=== PATIENT | female | born 1980 | race Caucasian/White ===

== ENCOUNTER 2021-01-26 08:09 | Outpatient (CLI) | payer OTHER, SELFPAY ==
[2021-01-26 08:31] LABS: Basophils Absolute Auto 0.1 K/mm3 (0.0-0.1); Basophils Percent Auto 0.5 % (0.2-1.2); Eosinophils Absolute Auto 0.1 K/mm3 (0-0.3); Eosinophils Percent Auto 1.3 % (0-4.4); Hematocrit 36.5 % (37.0-47.0); Hemoglobin 11.7 g/dL (12.0-15.0); Immature Granulocyte Absolute 0.04 K/mm3 (0.00-0.031); Immature Granulocyte Percent A 0.4 % (0-0.5); Lymphocytes Absolute Auto 2.78 K/mm3 (0.9-3.2); Lymphocytes Percent Auto 29.4 % (18.3-44.2); Mean Corpuscular HGB Conc 32.1 g/dl (32-36); Mean Corpuscular Hemoglobin 25.5 pg (26-34); Mean Corpuscular Volume 79.5 fl (80-100); Mean Platelet Volume 8.7 fl (7.4-10.4); Monocytes Absolute Auto 0.4 K/mm3 (0.1-0.6); Monocytes Percent Auto 3.7 % (2.6-8.5); Neutrophils Absolute Auto 6.1 K/mm3 (1.3-6.7); Neutrophils Percent Auto 64.7 % (45.5-73.1); Platelet Count Result 384 k/mm3 (150-375); Red Blood Count 4.59 M/mm3 (4.2-5.4); White Blood Count 9.5 K/mm3 (4.5-10.0)
[2021-01-26 08:45] LABS: Potassium 3.7 mmol/L (3.4-5.0)
[2021-01-26 08:47] LABS: Albumin Level 4.1 g/dL (3.5-5.1)
[2021-01-26 08:48] LABS: Alanine Aminotransferase 20 U/L (4-35); Alkaline Phosphatase 77 U/L (38-126); Anion Gap 8 mmol/L (8-16); Aspartate Amino Transferase 21 U/L (14-36); Bilirubin,Total 0.5 mg/dL (0.2-1.3); Blood Urea Nitrogen 11 mg/dL (7-17); Calcium 9.2 mg/dL (8.4-10.2); Carbon Dioxide 25 mmol/L (22-30); Chloride 106 mmol/L (98-107); Cholesterol 160 mg/dL (0-200); Estimated Glomerular Filt Rate > 60; Glucose 154 mg/dL (65-105); HDL Direct 28 mg/dL; Sodium 139 mmol/L (137-145); Triglycerides 180 mg/dL (<150)
[2021-01-26 08:57] LABS: LDL Cholesterol Direct 95 mg/dL
[2021-01-26 10:56] LABS: Vitamin D 25 Hydroxy 13.5 ng/mL
== END 2021-01-26 08:10 | disposition home or self-care (01) ==
PROVIDERS: PCP Family Medicine; Visit Provider Nurse Practitioner Family
DX: E78.2 Mixed hyperlipidemia (principal); E66.01 Morbid (severe) obesity due to excess calories; Z13.29 Encounter for screening for other suspected endocrine disorder; E55.9 Vitamin D deficiency, unspecified
CPT/HCPCS: 36415; 80053; 80061; 82306; 84443; 85025

== ENCOUNTER 2021-05-14 16:58 | Outpatient (CLI) | payer OTHER, SELFPAY ==
--- NOTE | ~2021-05-14 | XR_ITS ---
XR elbow LT min 3V DATE: 05/14/2021 17:22 INDICATION: Generalized left elbow pain for one month. No injury. TECHNIQUE: 5 views COMPARISON: 02/12/2015 left elbow FINDINGS: There is spurring of the coronoid process of the proximal ulna since 02/12/2015. No fracture or dislocation or joint effusion. No periosteal reaction or bone destruction. 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
== END 2021-05-14 16:59 | disposition home or self-care (01) ==
LOC: ANHIMG 17:02
PROVIDERS: PCP Family Medicine; Visit Provider Nurse Practitioner Family
DX: M25.522 Pain in left elbow (principal); R20.0 Anesthesia of skin; R20.2 Paresthesia of skin; M77.8 Other enthesopathies, not elsewhere classified
CPT/HCPCS: 73080

== ENCOUNTER 2021-06-28 10:11 | Outpatient (CLI) | payer OTHER, SELFPAY ==
[2021-06-28 11:38] LABS: Hemoglobin A1C 6.3 % (<5.7)
[2021-07-02 11:14] LABS: Testosterone Total 31 ng/dL (2-45)
[2021-07-03 07:06] LABS: FSH 4.6 mIU/mL (***); LH 3.7 mIU/mL (***); Progesterone 0.7 ng/mL (***)
== END 2021-06-28 10:12 | disposition home or self-care (01) ==
PROVIDERS: PCP Family Medicine; Visit Provider Obstetrics & Gynecology
DX: N94.6 Dysmenorrhea, unspecified (principal)
CPT/HCPCS: 36415; 83001; 83002; 83036; 84144; 84403; 84443

== ENCOUNTER 2021-07-05 14:54 | Outpatient (CLI) | payer OTHER, SELFPAY ==
--- NOTE | ~2021-07-05 | US_ITS ---
EXAMINATION: US pelvic complete w TV EXAM DATE: 07/05/2021 16:01 INDICATION: R10.2 - Pelvic and perineal pain. TECHNIQUE: Pelvic transabdominal and transvaginal sonogram was performed. There are multiple graysca le and Doppler images available for interpretation. Comparison is made to prior examination from 04/24. FINDINGS: Uterus measures 11.1 x 4.0 x 6.0 cm, and is morphologically normal. Endometrial stripe me asures 5-6 mm, within normal limits. There is a nabothian cyst. There is no free pelvic fluid. Right adnexa: The ovary measures 2.8 x 2.1 x 2.0 cm and is morphologically normal. Ovarian vascular f low confirmed. Left adnexa: The ovary measures 1.9 x 1.5 x 3.0 cm and is morphologically normal. Ovarian vascular fl ow confirmed. IMPRESSION: 1. Unremarkable pelvic ultrasound exam. Reviewed, dictated and finalized at location B.
== END 2021-07-05 14:55 | disposition home or self-care (01) ==
LOC: ANHIMG 14:56
PROVIDERS: PCP Family Medicine; Visit Provider Obstetrics & Gynecology
DX: R10.2 Pelvic and perineal pain (principal)
CPT/HCPCS: 76830; 76856

== ENCOUNTER 2021-07-23 09:59 | Outpatient (CLI) | payer OTHER, SELFPAY ==
--- NOTE | 2021-07-23 11:30 | NEURO_ITS ---
Impression: # Complains of numbness of left hand. # Mild early left Carpal Tunnel Syndrome. # No ulnar neuropathy. # Normal needle/EMG exam. Nerve Conduction Studies Anti Sensory Summary Table Stim Site NR Peak (ms) P-T Amp (?V) Site1 Site2 Delta-P (ms) Dist (cm) Quinton (m/s) Left Median Anti Sensory (2-3nd Digit) Wrist 4.3 20.1 Wrist 2-3nd Digit 4.3 14.0 33 Wrist 4.3 34.8 Wrist 2-3nd Digit 4.3 14.0 33 Left Radial Anti Sensory (Base 1st Digit) Wrist 1.8 34.4 Wrist Base 1st Digit 1.8 0.0 Left Ulnar Anti Sensory (5th Digit) Wrist 2.1 46.4 Wrist 5th Digit 2.1 14.0 67 Motor Summary Table Stim Site NR Onset (ms) O-P Amp (mV) Site1 Site2 Delta-0 (ms) Dist (cm) Quinton (m/s) Left Median Motor (Abd Poll Brev) Wrist 3.8 5.2 Elbow Wrist 4.4 24.0 55 Elbow 8.2 4.3 Left Ulnar Motor (Abd Dig Minimi) Wrist 2.3 6.2 A Elbow Wrist 3.7 22.0 59 A Elbow 6.0 5.9 F Wave Studies NR F-Lat (ms) L-R F-Lat (ms) Left Median (Mrkrs) (Abd Poll Brev) 27.34 Left Ulnar (Mrkrs) (Abd Dig Min) 25.47 EMG Side Muscle Nerve Root Ins Act Fibs Amp Dur Recrt Comment Left 1stDorInt Ulnar C8-T1 Nml Nml Nml Nml Nml Left Ext Indicis Radial (Post Int) C7-8 Nml Nml Nml Nml Nml Left Ext Digitorum Radial (Post Int) C7-8 Nml Nml Nml Nml Nml Left BrachioRad Radial C5-6 Nml Nml Nml Nml Nml Left PronatorTeres Median C6-7 Nml Nml Nml Nml Nml Left Abd Poll Brev Median C8-T1 Nml Nml Nml Nml Nml MTDD
== END 2021-07-23 10:00 | disposition home or self-care (01) ==
PROVIDERS: PCP Family Medicine; Visit Provider Nurse Practitioner Family
DX: G56.02 Carpal tunnel syndrome, left upper limb (principal); R20.0 Anesthesia of skin; R20.2 Paresthesia of skin
CPT/HCPCS: 95886; 95909

== ENCOUNTER 2021-10-08 08:54 | Emergency (ER) | payer OTHER, SELFPAY ==
--- NOTE | ~2021-10-08 | CT_ITS ---
EXAMINATION: CT abdomen pelvis w con INDICATION: Left-sided abdominal pain and nausea TECHNIQUE: Computed tomographic images of the abdomen and pelvis were obtained after the administrati on of 100 cc of Omnipaque 350 intravenous contrast. The dose-length product (DLP) was 1396.39 mGy-cm. Automated exposure control and iterative reconstruction technique were employed. COMPARISON: 05/25/2019 FINDINGS: Minimal dependent atelectasis is present in the lung bases. The heart size is normal. The l iver, spleen, pancreas, gallbladder, and adrenal glands are normal. There is a 1.5 cm stone in the le ft renal pelvis with mild fat stranding of the left renal pelvis. The right kidney is unremarkable. T here are chronic mildly enlarged left inguinal lymph nodes. The appendix is normal. There is no free intraperitoneal gas or evidence of bowel obstruction. Colonic diverticulosis is noted. There is subtl e infiltration of the perisigmoid fat. IMPRESSION: 1. 1.5 cm stone in the left renal pelvis with subtle fat stranding of the left renal pelvis with fat, likely superimposed urinary tract infection. 2. Diverticulosis with subtle infiltration of the perisigmoid fat. Finding could reflect mild uncompl icated diverticulitis versus sequela of prior diverticulitis. Reviewed, dictated and finalized at location A. LY RESOURCE COORDINATOR IMPRESSION: 1. 1.5 cm stone in the left renal pelvis with subtle fat stranding of the left renal pelvis with fat, likely superimposed urinary tract infection. 2. Diverticulosis with subtle infiltration of the perisigmoid fat. Finding coul d reflect mild uncomplicated diverticulitis versus sequela of prior diverticuli tis.
[2021-10-08 08:57] VITALS: BP 152/81; PULSE 100; RESP 16; TEMP 36.1; O2SAT 100
[2021-10-08 11:03] VITALS: BP 144/87; PULSE 83; RESP 18; TEMP 36.5; O2SAT 97
--- NOTE | 2021-10-08 11:29 | ED.ABDPAIN ---
HPI - Abdominal Pain General Chief Complaint: Abdominal Pain Stated Complaint: My whole left side sharp pain, my stomach hurts Time Seen by Provider: 10/08/21 11:18 Source: patient History of Present Illness HPI narrative: 41-year-old female presented to the emergency department for evaluation of left lower quadrant pain. Patient states pain has been ongoing for 4 days and is worsened with eating. Patient denies any constipation or diarrhea. Patient states he does have a prior history of kidney stones but this does not feel similar to her kidney stones. Patient also has a prior history of diverticulitis approximately 3 years ago. Patient states pain is not identical to that episode either. Patient denies any previous surgical abdominal history. Patient denies any pain with urination. Related Data Allergies Allergy/AdvReac Type Severity Reaction Status Date / Time codeine Allergy Unknown Unknown Verified 10/08/21 11:07 amoxicillin AdvReac yeast Verified 10/08/21 11:07 infection Review of Systems Review of Systems: CONSTITUTIONAL: Denies fever, chills, or sweats. EYES: Denies visual changes, redness, or discharge. CARDIOVASCULAR: Denies chest pain, palpitations, or edema. RESPIRATORY: Denies cough or dyspnea. GASTROINTESTINAL: Left lower quadrant abdominal pain, nausea, vomiting, or diarrhea. GENITOURINARY: Denies dysuria or hematuria. SKIN: Denies rash or itching. MUSCULOSKELETAL: Denies back pain, joint pain, or myalgia. NEUROLOGIC: Denies headache, numbness, or weakness. [facility] Past Medical History Medical History BMI 50.0-59.9, adult Bone spur Morbid (severe) obesity due to excess calories Surgical History Surgical History H/O eye surgery H/O knee surgery History of carpal tunnel surgery History of rotator cuff surgery Family History Family History Father Hypertension Family history of diabetes mellitus in first degree relative Acute myocardial infarction Pancreatitis Mother Acute myocardial infarction Cerebrovascular accident Sibling Hypertension Ovarian cyst COVID-19 Other Diabetes mellitus Family history of alcoholism Family history of malignant neoplasm Social History Social History Smoking packs per day: 0.5 Smoking cigarettes per day: 10.0 Years smoked: 14 Smoking pack-years: 7.00 Smoking status: Current every day smoker Tobacco type: cigarettes Second hand tobacco smoke exposure: No Alcohol intake: never Substance use: never Substance use type: does not use 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 Head normocephalic atraumtaic. EYES: PERRLA/EOMI, conjunctivae very clear. NOSE: Normal no drainage RESPIRATORY: Airway patent, respirations nonlabored. Clear to auscultation bilaterally, no rales, rhonchi, wheezing. CARDIOVASCULAR: Regular rate and rhythm without murmurs rubs or gallops. ABDOMINAL: Soft, nontender, nondistended, no hepatosplenomegally, no reproducible pain with palpation. Normal bowel sounds MUSCULOSKELETAL: Moves all extremities. Strenght/ROM intact, No edema, No calf tenderness. NEURO: Alert. Cranial nerves II through XII intact. Good gait. Good coordination SKIN:: Warm, dry. Normal Color PSYCHIATRIC: Normal affect/mood, normal interaction with parents. Const: General: no acute distress Course Course Emergency Course: Patient had no significant change in her symptoms while she was in the emergency department. Patient continued to decline any medications for pain control. Patient was updated on the results of her CT scan. Patient was treated with antibiot
[2021-10-08] MEDS: SODIUM CHLORIDE 0.9% IV 1,000 ML 999 ML IV CONT (11:51)
[2021-10-08 11:57] LABS: Basophils Percent Auto 0.4 % (0.2-1.2); Eosinophils Absolute Auto 0.1 K/mm3 (0-0.3); Eosinophils Percent Auto 1.1 % (0-4.4); Hematocrit 37.4 % (37.0-47.0); Hemoglobin 11.9 g/dL (12.0-15.0); Immature Granulocyte Absolute 0.03 K/mm3 (0.00-0.031); Immature Granulocyte Percent A 0.3 % (0-0.5); Lymphocytes Absolute Auto 3.05 K/mm3 (0.9-3.2); Lymphocytes Percent Auto 28.6 % (18.3-44.2); Mean Corpuscular HGB Conc 31.8 g/dl (32-36); Mean Corpuscular Hemoglobin 25.3 pg (26-34); Mean Corpuscular Volume 79.6 fl (80-100); Mean Platelet Volume 8.7 fl (7.4-10.4); Monocytes Absolute Auto 0.6 K/mm3 (0.1-0.6); Monocytes Percent Auto 5.1 % (2.6-8.5); Neutrophils Absolute Auto 6.9 K/mm3 (1.3-6.7); Neutrophils Percent Auto 64.5 % (45.5-73.1); Platelet Count Result 424 k/mm3 (150-375); Red Cell Distribution Width 15.5 % (11.5-14.5); White Blood Count 10.7 K/mm3 (4.5-10.0)
[2021-10-08 12:00] LABS: Add Urine Microscopic? YES; Appearance Urine Cloudy (Clear); Bacteria Urine Trace /hpf; Bilirubin Urine Negative (Negative); Blood Urine 3+ (Negative); Calcium Oxalate Crystals Urine Present /hpf; Color Urine Yellow (Yellow); Glucose Urine UA Negative (Negative); Ketones Urine Trace mg/dL (Negative); Leukocyte Esterase Ur 1+ LEU/UL (Negative); Mucus Urine Moderate /lpf; Nitrate Urine Negative (Negative); Protein Urine 2+ mg/dL (Negative); RBC Urine >75 /hpf (0-2); Specific Grav Ur 1.028 (1.001-1.035); Squamous Epithelial Cell Urine Many /hpf (Few); Urobilinogen Urine Negative mg/dL (<2.0); WBC Urine 21-30 /hpf
[2021-10-08 12:13] LABS: Alanine Aminotransferase 17 U/L (4-35); Albumin Level 4.4 g/dL (3.5-5.1); Alkaline Phosphatase 76 U/L (38-126); Anion Gap 7 mmol/L (8-16); Aspartate Amino Transferase 18 U/L (14-36); Bilirubin,Total 0.3 mg/dL (0.2-1.3); Blood Urea Nitrogen 12 mg/dL (7-17); Calcium 9.3 mg/dL (8.4-10.2); Carbon Dioxide 25 mmol/L (22-30); Chloride 103 mmol/L (98-107); Estimated CRCL calculation 122 ml/min; Estimated Glomerular Filt Rate > 60; Glucose 83 mg/dL (65-110); Lipase 44 U/L (23-300); Potassium 4.3 mmol/L (3.4-5.0); Sodium 135 mmol/L (137-145)
[2021-10-08 12:14] LABS: Lactic Acid Reflex 0.8 mmol/L (0.7-2.1)
[2021-10-08] MEDS: metroNIDAZOLE 250 MG TABLET 500 MG PO (14:29)
[2021-10-08] MEDS: levoFLOXacin 750 MG TABLET PO (14:29)
[2021-10-08 14:46] VITALS: BP 133/99; PULSE 81; RESP 16; TEMP 36.3; O2SAT 97
== END 2021-10-08 14:47 | disposition home or self-care (01) ==
PROVIDERS: Emergency Medicine; Emergency Provider Emergency Medicine; PCP Family Medicine
DX: K57.92 Diverticulitis of intestine, part unspecified, without perforation or abscess without bleeding (principal); N39.0 Urinary tract infection, site not specified; E66.01 Morbid (severe) obesity due to excess calories; Z68.42 Body mass index [BMI] 45.0-49.9, adult; F17.210 Nicotine dependence, cigarettes, uncomplicated; K57.90 Diverticulosis of intestine, part unspecified, without perforation or abscess without bleeding; N20.0 Calculus of kidney; Z87.442 Personal history of urinary calculi
CPT/HCPCS: 36415; 74177; 80053; 81001; 81025; 83605; 83690; 85025; 87086; 96360; 99284; A9270; J7030; Q9967

== ENCOUNTER 2021-12-22 08:45 | Emergency (ER) | payer OTHER, SELFPAY ==
--- NOTE | ~2021-12-22 | CT_ITS ---
EXAMINATION: CT abdomen pelvis w con DATE: 12/22/2021 10:13 INDICATION: Left lower quadrant pain and nausea. History of diverticulitis. TECHNIQUE: Computed tomography (CT) of the abdomen and pelvis was performed with 100 cc Omnipaque 350 intravenous contrast. The dose-length product was 1478.93 mGy-cm. Automated exposure control and iterative reconstruction technique were employed. COMPARISON: CT dated 10/08/2021 FINDINGS: The liver, spleen, pancreas, adrenal glands and right kidney are unremarkable. There is urothelial an d enhancement of the left renal pelvis and proximal ureter with surrounding periureteral edema, suspi cious for urinary tract infection. There are left renal stones in the renal pelvis. Gallbladder is pr esent. Nonobstructive bowel gas pattern. Normal appendix. No evidence for bowel obstruction. Divertic ulosis without evidence for diverticulitis. Subtle infiltration of the pericolonic fat at the sigmoid colon which likely represents sequela of previous diverticulitis. Lung bases are unremarkable. Heart size normal. No significant pleural or pericardial effusion. IMPRESSION: 1. Mild left hydronephrosis with urothelial enhancement proximally, suspicious for urinary tract infe ction. 2: Nonobstructing left nephrolithiasis. Reviewed, dictated and finalized at location A. C++ QUANT DEVELOPER IMPRESSION: 1. Mild left hydronephrosis with urothelial enhancement proximally, suspicious for urinary tract infection. 2: Nonobstructing left nephrolithiasis.
[2021-12-22 08:49] VITALS: BP 161/99; PULSE 97; RESP 18; TEMP 36.1; O2SAT 98
--- NOTE | 2021-12-22 09:00 | ED.ABDPAIN ---
HPI - Abdominal Pain General Chief Complaint: Abdominal Pain Stated Complaint: left side pain Time Seen by Provider: 12/22/21 08:53 Source: patient, RN notes reviewed and old records reviewed Mode of arrival: ambulatory Limitations: no limitations History of Present Illness HPI narrative: This is a 41 year old female with history of diverticulitis who presents for evaluation of left lower abdominal pain. She reports having intermittent left lower abdominal pain for 2 weeks. Initially her pain would only last for 15 minutes and resolve for several hours before returning. She woke up with severe pain at 8 am this morning and it has been constant. Her abdominal pain is also radiating to her right abdomen. This pain feels similar to previous episode of diverticulitis that was diagnosed with 2 months ago. She denies nausea, vomiting, fever, chills, diarrhea or constipation. She has not taken anything for pain. She rates pain as 5/10. Related Data Allergies Allergy/AdvReac Type Severity Reaction Status Date / Time codeine Allergy Unknown Unknown Verified 12/22/21 09:01 amoxicillin AdvReac yeast Verified 12/22/21 09:01 infection Review of Systems Review of Systems: All systems reviewed & are unremarkable except as noted in HPI and below PMFSH Past Medical History Medical History (Updated 12/22/21 @ 11:06 by Ethel Galicia MD) BMI 50.0-59.9, adult Bone spur Diverticulitis of intestine without perforation or abscess Morbid (severe) obesity due to excess calories Surgical History Surgical History H/O eye surgery H/O knee surgery History of carpal tunnel surgery History of rotator cuff surgery Family History Family History Father Hypertension Family history of diabetes mellitus in first degree relative Acute myocardial infarction Pancreatitis Mother Acute myocardial infarction Cerebrovascular accident Sibling Hypertension Ovarian cyst COVID-19 Other Diabetes mellitus Family history of alcoholism Family history of malignant neoplasm Social History Social History Smoking packs per day: 0.5 Smoking cigarettes per day: 10.0 Years smoked: 14 Smoking pack-years: 7.00 Smoking status: Current every day smoker Tobacco type: cigarettes Second hand tobacco smoke exposure: No Alcohol intake: never Substance use: never Substance use type: does not use 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[employer] Gender identity (if verbalized by the patient): Female Exam Const: General: no acute distress and alert Orientation/consciousness: patient oriented x3 Eyes: EOM: EOMs intact bilaterally Resp: Effort & Inspection: normal respiratory effort and no retractions Auscultation: clear to auscultation bilaterally Cardio: Rate: regular rate Rhythm: regular rhythm Heart sounds: no murmurs GI: Inspection: distended GI Palp: Yes Soft to palpation, Yes Tenderness to palpation present (GI), Yes Guarding due to palpation present (GI) and No Rigid due to palpation Auscultation: absent bowel sounds Back/Spine/Pelvis: Back: no CVA tenderness Skin: General skin exam: normal color Rashes: no rashes Neuro: General: patient oriented x3, moves all extremities and CN's II-XI intact bilaterally Psych: Mental Status: mental status grossly normal Affect: normal affect Course Reevaluation(s) Reevaluation #1: Patient appears more comfortable. I Discussed with patient that she will be started on antibiotics for UTI. I also discussed she has left renal stone that she will need to follow up with urologist given this is second visit in 2 months of this pain. She denies having any other questions. Date: 12/22/21 Time: 11:01 Vital Signs Vital signs: Vital Signs Temperature 97.0 F L 12/22/21 08:49
[2021-12-22 09:08] LABS: Basophils Percent Auto 0.4 % (0.2-1.2); Eosinophils Absolute Auto 0.1 K/mm3 (0-0.3); Eosinophils Percent Auto 0.7 % (0-4.4); Hematocrit 39.6 % (37.0-47.0); Hemoglobin 12.7 g/dL (12.0-15.0); Immature Granulocyte Absolute 0.04 K/mm3 (0.00-0.031); Immature Granulocyte Percent A 0.4 % (0-0.5); Lymphocytes Percent Auto 28.6 % (18.3-44.2); Mean Corpuscular HGB Conc 32.1 g/dl (32-36); Mean Corpuscular Hemoglobin 26.3 pg (26-34); Mean Corpuscular Volume 82.2 fl (80-100); Mean Platelet Volume 8.9 fl (7.4-10.4); Monocytes Absolute Auto 0.5 K/mm3 (0.1-0.6); Monocytes Percent Auto 4.7 % (2.6-8.5); Neutrophils Absolute Auto 6.4 K/mm3 (1.3-6.7); Neutrophils Percent Auto 65.2 % (45.5-73.1); Platelet Count Result 377 k/mm3 (150-375); Red Blood Count 4.82 M/mm3 (4.2-5.4); Red Cell Distribution Width 15.1 % (11.5-14.5); White Blood Count 9.8 K/mm3 (4.5-10.0)
[2021-12-22] MEDS: MORPHINE SULFATE (*CRX) 4 MG/ML INJ IV PUSH (09:21)
[2021-12-22] MEDS: ONDANSETRON INJ 4 MG/2 ML VIAL IV PUSH (09:22)
[2021-12-22 09:34] LABS: Lactic Acid Reflex 1.1 mmol/L (0.7-2.1)
[2021-12-22 09:34] LABS: Alanine Aminotransferase 16 U/L (4-35); Albumin Level 4.3 g/dL (3.5-5.1); Alkaline Phosphatase 62 U/L (38-126); Anion Gap 7 mmol/L (8-16); Aspartate Amino Transferase 33 U/L (14-36); Bilirubin,Total 0.8 mg/dL (0.2-1.3); Blood Urea Nitrogen 16 mg/dL (7-17); Carbon Dioxide 23 mmol/L (22-30); Chloride 105 mmol/L (98-107); Estimated CRCL calculation 121 ml/min; Estimated Glomerular Filt Rate > 60; Glucose 113 mg/dL (65-110); Lipase 32 U/L (23-300); Potassium 4.7 mmol/L (3.4-5.0); Sodium 135 mmol/L (137-145)
[2021-12-22 09:35] LABS: Add Urine Microscopic? YES; Appearance Urine Cloudy (Clear); Bilirubin Urine Negative (Negative); Blood Urine 2+ (Negative); Color Urine Yellow (Yellow); Glucose Urine UA Negative (Negative); Ketones Urine Negative (Negative); Leukocyte Esterase Ur 2+ LEU/UL (Negative); Nitrate Urine Negative (Negative); Protein Urine 2+ mg/dL (Negative); Specific Grav Ur 1.023 (1.001-1.035); Squamous Epithelial Cell Urine Rare /hpf (Few); Urobilinogen Urine Negative mg/dL (<2.0)
[2021-12-22] MEDS: LACTATED RINGERS 1,000 ML 999 ML IV CONT (09:41)
[2021-12-22 09:43] VITALS: BP 120/72; PULSE 79; RESP 18; O2SAT 95
--- NOTE | 2021-12-22 10:01 | PC.NURSE ---
Pt to CT.
--- NOTE | 2021-12-22 10:54 | PC.NURSE ---
Dr. Galicia at bedside to discuss results and treatment plan with pt.
[2021-12-22 11:20] VITALS: BP 124/63; PULSE 80; RESP 16; O2SAT 97
== END 2021-12-22 11:23 | disposition home or self-care (01) ==
PROVIDERS: Emergency Provider General Practice; PCP Family Medicine
DX: N39.0 Urinary tract infection, site not specified (principal); N20.0 Calculus of kidney; E66.01 Morbid (severe) obesity due to excess calories; Z68.42 Body mass index [BMI] 45.0-49.9, adult; F17.210 Nicotine dependence, cigarettes, uncomplicated
CPT/HCPCS: 36415; 74177; 80053; 81001; 81025; 83605; 83690; 85025; 96361; 96365; 96375; 99284; J0131; J0696; J2270; J2405; J7120; Q9967

== ENCOUNTER 2022-01-26 11:43 | Emergency (ER) | payer OTHER, SELFPAY ==
--- NOTE | ~2022-01-26 | CT_ITS ---
EXAMINATION: CT abdomen pelvis wo con EXAM DATE: 01/26/2022 14:52 INDICATION: Flank pain, history of kidney stones. TECHNIQUE: Spiral CT of the abdomen and pelvis was performed without contrast. Axial, coronal and sag ittal images were reviewed. The dose-length product (DLP) for this examination was 1378.64 mGy-cm. The exposure was tailored according to patient size (auto mA exposure control), and iterative reconst ruction (ASIR) was used as additional dose reduction technique. Comparison is made to prior examinati on from 12/22/2021. FINDINGS: There is a 17 x 9 mm stone in the left ureteropelvic junction, additional 2 mm left inferio r calyceal stone. There is mild fat stranding surrounding the left renal pelvis and minimal caliectas is. Appearance is not significantly changed compared to last month. The uterus is anteverted and mor phologically normal. The bladder is unremarkable. The liver, spleen, adrenal glands and pancreas a re unremarkable. Gallbladder is unremarkable. No biliary obstruction. There is no retroperitoneal or pelvic lymphadenopathy. The appendix is normal. There is mild scattered colonic diverticulosis. There is no adjacent inflamm atory change to suggest diverticulitis. The stomach and small bowel are unremarkable. There is expec jasen amount of colonic stool. No free intraperitoneal gas. The heart is normal in size. There are no pericardial or pleural effusions. The lung bases are unremarkable. There are no osteoblastic or osteolytic lesions identified. IMPRESSION: 1. Large left renal pelvic stone, mild adjacent inflammation and minimal caliectasis. Appearance unc hanged. 2. Punctate left inferior calyceal stone. 3. Mild colonic diverticulosis. Reviewed, dictated and finalized at location G. IMPRESSION: 1. Large left renal pelvic stone, mild adjacent inflammation and minimal calie ctasis. Appearance unchanged. 2. Punctate left inferior calyceal stone. 3. Mild colonic diverticulosis.
[2022-01-26 11:45] VITALS: BP 129/79; PULSE 84; RESP 16; TEMP 36.6; O2SAT 98
--- NOTE | 2022-01-26 12:44 | ED.ABDPAIN ---
HPI - Abdominal Pain General Chief Complaint: Urogenital-Female Stated Complaint: kidney stone Time Seen by Provider: 01/26/22 12:05 Source: patient Mode of arrival: ambulatory Limitations: no limitations History of Present Illness HPI narrative: Patient is a 41-year-old female complaining of left flank, left lower quadrant pain, 9 out of 10, sharp, radiating to lower abdomen that started months ago but worse the past few days. Patient denies any chest pain, shortness of breath, nausea, vomiting, diarrhea, urinary symptoms, fever or chills. Patient states that she has seen her urologist for this and is scheduled for surgery this Thursday. Related Data Allergies Allergy/AdvReac Type Severity Reaction Status Date / Time codeine Allergy Unknown Unknown Verified 01/26/22 11:50 amoxicillin AdvReac yeast Verified 01/26/22 11:50 infection Review of Systems Review of Systems: All systems reviewed & are unremarkable except as noted in HPI and below Constitutional: Constitutional: Denies body ache(s), Denies chills, Denies excessive sweating, Denies fatigue, Denies fever(s), Denies headache(s), Denies lethargy, Denies malaise, Denies weakness and Denies weight loss Eyes: Eyes: Denies blurry vision, Denies change in vision and Denies loss of vision ENT: Denies dizziness, Denies ear discharge, Denies headache(s), Denies lip swelling, Denies epistaxis, Denies nasal congestion, Denies neck pain, Denies throat swelling and Denies tongue swelling Cardiovascular: Cardiovascular: Denies chest pain, Denies chest pain at rest, Denies chest pain with activity, Denies diaphoresis, Denies rapid heart rate, Denies edema, Denies irregular heart rhythm, Denies lightheadedness, Denies palpitations, Denies dyspnea and Denies dyspnea on exertion Respiratory: Respiratory: Denies chest congestion, Denies cough, Denies hemoptysis, Denies dyspnea and Denies dyspnea on exertion Gastrointestinal: Gastrointestinal: Denies melena, Denies hematochezia, Denies diarrhea, Denies nausea, Denies vomiting and Denies hematemesis Musculoskeletal: Musculoskeletal: Denies abnormal gait, Denies deformity, Denies joint swelling, Denies limited range of motion, Denies neck pain and Denies numbness Neurologic: Denies Abnormal speech present, Denies abnormal gait, Denies confusion, Denies dizziness, Denies headache(s), Denies focal weakness, Denies loss of vision, Denies numbness, Denies Other visual disturbances, Denies Sensory deficit (Neuro) and Denies weakness Psychiatric: Psychiatric: Denies confusion, Denies depression, Denies auditory hallucinations, Denies homicidal ideation and Denies suicidal ideation Endocrine: Endocrine: Denies cold intolerance, Denies excessive sweating, Denies fatigue, Denies heat intolerance and Denies palpitations Hematologic/Lymphatic: Hematologic/Lymphatic: Denies easy bleeding and Denies easy bruising Allergic/Immunologic: Allergic/Immunologic: Denies lip swelling, Denies throat swelling and Denies tongue swelling PMFSH Past Medical History Medical History Adult BMI 45.0-49.9 kg/sq m BMI 50.0-59.9, adult Bone spur Diverticulitis of intestine without perforation or abscess Morbid (severe) obesity due to excess calories Surgical History Surgical History H/O eye surgery H/O knee surgery History of carpal tunnel surgery History of rotator cuff surgery Family History Family History Father Hypertension Family history of diabetes mellitus in first degree relative Acute myocardial infarction Pancreatitis Mother Acute myocardial infarction Cerebrovascular accident Sibling Hypertension Ovarian cyst COVID-19 Other Diabetes mellitus Family history of alcoholism Family history of malignant neoplasm Social History Social History (Reviewed 01/26/22 @ 12:45 by Lila
[2022-01-26 12:50] LABS: Basophils Percent Auto 0.4 % (0.2-1.2); Eosinophils Absolute Auto 0.1 K/mm3 (0-0.3); Eosinophils Percent Auto 0.6 % (0-4.4); Hematocrit 41.9 % (37.0-47.0); Hemoglobin 13.3 g/dL (12.0-15.0); Immature Granulocyte Absolute 0.04 K/mm3 (0.00-0.031); Immature Granulocyte Percent A 0.4 % (0-0.5); Lymphocytes Absolute Auto 2.56 K/mm3 (0.9-3.2); Lymphocytes Percent Auto 23.7 % (18.3-44.2); Mean Corpuscular HGB Conc 31.7 g/dl (32-36); Mean Corpuscular Hemoglobin 26.2 pg (26-34); Mean Corpuscular Volume 82.6 fl (80-100); Mean Platelet Volume 9.1 fl (7.4-10.4); Monocytes Absolute Auto 0.4 K/mm3 (0.1-0.6); Neutrophils Absolute Auto 7.7 K/mm3 (1.3-6.7); Neutrophils Percent Auto 70.9 % (45.5-73.1); Platelet Count Result 380 k/mm3 (150-375); Red Blood Count 5.07 M/mm3 (4.2-5.4); Red Cell Distribution Width 15.4 % (11.5-14.5); White Blood Count 10.8 K/mm3 (4.5-10.0)
[2022-01-26 12:59] LABS: Alanine Aminotransferase 24 U/L (4-35); Albumin Level 4.5 g/dL (3.5-5.1); Alkaline Phosphatase 70 U/L (38-126); Anion Gap 6 mmol/L (8-16); Aspartate Amino Transferase 37 U/L (14-36); Bilirubin,Total 0.4 mg/dL (0.2-1.3); Blood Urea Nitrogen 17 mg/dL (7-17); Calcium 9.3 mg/dL (8.4-10.2); Carbon Dioxide 26 mmol/L (22-30); Chloride 104 mmol/L (98-107); Estimated CRCL calculation 116 ml/min; Estimated Glomerular Filt Rate > 60; Glucose 92 mg/dL (65-110); Lipase 31 U/L (23-300); Sodium 136 mmol/L (137-145)
[2022-01-26] MEDS: KETOROLAC 30 MG/ML VIAL (*BKC) IV PUSH (13:06)
[2022-01-26 13:15] VITALS: BP 153/88; PULSE 88; RESP 19; O2SAT 97
[2022-01-26 13:23] LABS: Add Urine Microscopic? YES; Appearance Urine Clear (Clear); Bilirubin Urine Negative (Negative); Blood Urine 3+ (Negative); Color Urine Yellow (Yellow); Glucose Urine UA Negative (Negative); Ketones Urine Negative (Negative); Leukocyte Esterase Ur Trace LEU/UL (Negative); Mucus Urine Rare /lpf; Nitrate Urine Negative (Negative); Protein Urine 1+ mg/dL (Negative); RBC Urine 51-75 /hpf (0-2); Specific Grav Ur 1.013 (1.001-1.035); Squamous Epithelial Cell Urine Occasional /hpf (Few); Urobilinogen Urine Negative mg/dL (<2.0); WBC Urine 16-20 /hpf
--- NOTE | 2022-01-26 14:38 | PC.NURSE ---
pt. to CT
[2022-01-26] MEDS: HYDROcodone/acetaminophen (*CRX) 5-325 MG TABLET 1 TAB PO (14:50)
[2022-01-26 15:00] VITALS: BP 136/89; PULSE 99; RESP 17; O2SAT 97
== END 2022-01-26 16:20 | disposition home or self-care (01) ==
PROVIDERS: Emergency Provider Emergency Medicine; PCP Family Medicine
DX: N20.1 Calculus of ureter (principal); E66.01 Morbid (severe) obesity due to excess calories; Z68.42 Body mass index [BMI] 45.0-49.9, adult; F17.210 Nicotine dependence, cigarettes, uncomplicated; K57.90 Diverticulosis of intestine, part unspecified, without perforation or abscess without bleeding
CPT/HCPCS: 36415; 74176; 80053; 81001; 81025; 83690; 85025; 87077; 87086; 87088; 96374; 99284; A9270; J1885

== ENCOUNTER 2022-02-14 10:02 | Emergency (ER) | payer OTHER, SELFPAY ==
[2022-02-14 10:11] VITALS: BP 110/69; PULSE 100; RESP 18; TEMP 36.6; O2SAT 95
--- NOTE | 2022-02-14 10:19 | ED.URI ---
HPI - URI/Sore Throat General Chief Complaint: Upper Respiratory Infection Stated Complaint: headache,cough Source: patient and RN notes reviewed Mode of arrival: ambulatory Limitations: no limitations History of Present Illness HPI Narrative: 41-year-old female presented for complaint of headache and sinus pressure and productive cough since yesterday. She states the night before she went to sleep feeling fast heart rate and broke out in a sweat. She states she was able to calm herself down but the next day she woke feeling ill. Also endorses approximately 3 episodes of vomiting yesterday for which she took Zofran and it subsided. Denies chest pain, shortness of breath, wheezing, dizziness, f/c, or body aches. She has taken ibuprofen and Zofran. She denies sick contacts. She has not been vaccinated for flu, she is not due for Covid booster yet. MD elicited complaint: cough Related Data Home Medications Medication Instructions Recorded Confirmed Zoloft 02/14/22 cetirizine 10 mg PO DAILY 02/14/22 02/14/22 Allergies Allergy/AdvReac Type Severity Reaction Status Date / Time codeine Allergy Unknown Difficulty Verified 02/14/22 10:22 Breathing amoxicillin AdvReac yeast Verified 02/14/22 10:22 infection Review of Systems Review of Systems: CONSTITUTIONAL: Denies malaise, chills, sweats, fever EYES: Denies visual changes, redness, or discharge ENT: Reports rhinorrhea, congestion, sinus pain, denies otalgia, sore throat CARDIOVASCULAR: Denies chest pain, palpitations, edema RESPIRATORY: Reports cough, post nasal drainage. Denies dyspnea GASTROINTESTINAL: Denies abdominal pain, nausea, vomiting, diarrhea SKIN: Denies rash or itching MUSCULOSKELETAL: Denies myalgia NEUROLOGIC: Reports headache PMFSH Past Medical History Medical History Adult BMI 45.0-49.9 kg/sq m BMI 50.0-59.9, adult Bone spur Diverticulitis of intestine without perforation or abscess Morbid (severe) obesity due to excess calories Surgical History Surgical History H/O eye surgery H/O knee surgery History of carpal tunnel surgery History of rotator cuff surgery Family History Family History Father Hypertension Family history of diabetes mellitus in first degree relative Acute myocardial infarction Pancreatitis Mother Acute myocardial infarction Cerebrovascular accident Sibling Hypertension Ovarian cyst COVID-19 Other Diabetes mellitus Family history of alcoholism Family history of malignant neoplasm Social History Social History Smoking packs per day: 0.5 Smoking cigarettes per day: 10.0 Years smoked: 14 Smoking pack-years: 7.00 Smoking status: Current every day smoker Tobacco type: cigarettes Second hand tobacco smoke exposure: No Alcohol intake: never Substance use: never Substance use type: does not use 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 HEAD: Normocephalic EYES: conjunctivae clear ENT: Mucous membranes moist. TMs pearly santiago with dull light reflex bilaterally, right with fluid bubbles; no tragal tenderness. Oropharynx erythematous without lesions or exudate, no drooling, no hoarseness, no trismus, uvula midline. NECK: Supple. No lymphadenopathy CHEST: Clear to auscultation, breath sounds equal. No wheezing, rhonchi, rales, or stridor. No respiratory distress, speaks in full sentences. HEART: Regular rate and rhythm. No murmur heard. SKIN: Warm, dry, no rash. NEURO: Alert and oriented x3. PSYCH: Normal mood and affect Course Course Emergency Course: Patient is aware of diagnosis, understand
== END 2022-02-14 10:43 | disposition home or self-care (01) ==
PROVIDERS: Emergency Provider Nurse Practitioner Family; PCP Family Medicine
DX: J06.9 Acute upper respiratory infection, unspecified (principal); Z20.822 Contact with and (suspected) exposure to COVID-19; F17.210 Nicotine dependence, cigarettes, uncomplicated; E66.01 Morbid (severe) obesity due to excess calories; Z68.41 Body mass index [BMI] 40.0-44.9, adult
CPT/HCPCS: 87426; 87804; 99213; C9803; G0463

== ENCOUNTER 2022-03-05 12:22 | Outpatient (CLI) | payer OTHER, SELFPAY ==
--- NOTE | ~2022-03-05 | XR_ITS ---
EXAM: XR abdomen/kub 1V HISTORY: CALCULUS OF KIDNEY FU COMPARISON: CT 01/26/22 FINDINGS: Clear lung bases. Normal bowel gas pattern. No organomegaly. Left renal calcifications are stable. Regional bones and soft tissues normal for age. IMPRESSION: Stable left nephrolithiasis. Reviewed, dictated and finalized at location K.
== END 2022-03-05 12:23 | disposition home or self-care (01) ==
PROVIDERS: PCP Family Medicine; Visit Provider Urology
DX: N20.0 Calculus of kidney (principal)
CPT/HCPCS: 74018

== ENCOUNTER 2022-03-19 12:41 | Outpatient (CLI) | payer OTHER, SELFPAY ==
--- NOTE | ~2022-03-19 | US_ITS ---
EXAMINATION: US renal BI DATE: 03/19/2022 13:05 INDICATION: Kidney stone TECHNIQUE: Multiple ultrasound grayscale images of the kidneys were obtained. COMPARISON: CT dated 01/26/2022 FINDINGS: The right kidney measures 10.5 x 4.1 x 4.7 cm. The left kidney measures 10.9 x 5.3 x 4.9 cm. The kidn eys demonstrate normal echogenicity. There is no hydronephrosis in either kidney. No stones identifi ed. Specifically the large stone previously seen at the left renal pelvis is not visualized. The blad loretta is normal. IMPRESSION: 1. Normal kidneys without hydronephrosis. 2. No renal stones identified. Specifically the larger stone previously seen at the left renal pelvis is not visualized and would correlate for interval stone passage, extraction or lithotripsy. Reviewed, dictated and finalized at location A.
== END 2022-03-19 12:42 | disposition home or self-care (01) ==
LOC: ANHIMG 12:44
PROVIDERS: PCP Family Medicine; Visit Provider Urology
DX: N20.0 Calculus of kidney (principal)
CPT/HCPCS: 76775

== ENCOUNTER 2022-06-03 08:05 | Emergency (ER) | payer OTHER, SELFPAY ==
--- NOTE | ~2022-06-03 | XR_ITS ---
XR chest 1V portable DATE: 06/03/2022 08:39 INDICATION: Chest pain, discomfort, shortness of breath TECHNIQUE: Portable AP chest on 06/03/2022 at 0834 hours COMPARISON: 03/24/2018 PA and lateral chest radiographs FINDINGS: Normal heart size. No hilar or mediastinal enlargement. No pulmonary infiltrate or consolid ation, pleural effusion or pulmonary vascular congestion or pneumothorax. IMPRESSION: No active cardiopulmonary disease Reviewed, dictated and finalized at location D.
--- NOTE | ~2022-06-03 | CT_ITS ---
EXAMINATION: CTA chest PE protocol DATE: 06/03/2022 12:13 INDICATION: Chest pain, shortness of breath TECHNIQUE: Computed tomography angiography (CTA) of the chest was performed with 100 mL Omnipaque-350 intravenous contrast timed to evaluate the pulmonary arteries. Coronal maximum intensity projection 3D-reconstructions were created by the technologist. Automated exposure control and iterative reconst ruction technique were employed. Exam dose: 839.89 mGy-cm total exam DLP. COMPARISON: 06/03/2022 portable AP chest FINDINGS: There is diagnostic contrast enhancement of the pulmonary arteries and no evidence of pulmo nary embolism. No thoracic aortic aneurysm or dissection. Normal heart size. No hilar or mediastinal mass lesion or lymphadenopathy. No pericardial or pleural effusion. No pulmonary infiltrate or consolidation. Small right fat-containing foramen of Bochdalek hernia. Normal morphology of the adrenal glands. No suspicious osteolytic or osteoblastic lesions. IMPRESSION: No evidence of pulmonary embolism Reviewed, dictated and finalized at Location A. Reviewed, dictated and finalized at location B.
--- NOTE | 2022-06-03 08:10 | ECG_ITS ---
Measurements Intervals [place] Rate: 100 P: 49 ME: 138 QRS: 54 QRSD: 78 T: 27 QT: 332 QTc: 430 Interpretive Statements SINUS TACHYCARDIA LOW QRS VOLTAGE IN PRECORDIAL LEADS POSSIBLE RIGHT VENTRICULAR CONDUCTION DELAY Electronically Signed On 06-03-2022 11:41:43 CDT by Alex Kidd M.D.
[2022-06-03 08:11] VITALS: BP 121/69; PULSE 98; RESP 24; TEMP 36.7; O2SAT 97
[2022-06-03 08:20] VITALS: O2SAT 98
[2022-06-03] MEDS: ASPIRIN 81 MG CHEWABLE TABLET 324 MG PO (08:24)
[2022-06-03 08:28] LABS: Basophils Percent Auto 0.3 % (0.2-1.2); Eosinophils Absolute Auto 0.1 K/mm3 (0-0.3); Hematocrit 38.9 % (37.0-47.0); Hemoglobin 11.9 g/dL (12.0-15.0); Immature Granulocyte Absolute 0.04 K/mm3 (0.00-0.031); Immature Granulocyte Percent A 0.4 % (0-0.5); Lymphocytes Absolute Auto 2.35 K/mm3 (0.9-3.2); Lymphocytes Percent Auto 21.2 % (18.3-44.2); Mean Corpuscular HGB Conc 30.6 g/dl (32-36); Mean Corpuscular Hemoglobin 25.4 pg (26-34); Mean Corpuscular Volume 83.1 fl (80-100); Mean Platelet Volume 8.8 fl (7.4-10.4); Monocytes Absolute Auto 0.5 K/mm3 (0.1-0.6); Monocytes Percent Auto 4.6 % (2.6-8.5); Neutrophils Absolute Auto 8.1 K/mm3 (1.3-6.7); Neutrophils Percent Auto 72.5 % (45.5-73.1); Platelet Count Result 446 k/mm3 (150-375); Red Blood Count 4.68 M/mm3 (4.2-5.4); Red Cell Distribution Width 14.2 % (11.5-14.5); White Blood Count 11.1 K/mm3 (4.5-10.0)
[2022-06-03 08:32] VITALS: BP 109/52; PULSE 105; RESP 22; O2SAT 97
[2022-06-03 08:39] LABS: INR 1.1; Prothrombin Time 13.4 Seconds (11.1-14.7)
[2022-06-03 08:41] LABS: Partial Thromboplastin Time 28.5 SECONDS (22.3-36.8)
--- NOTE | 2022-06-03 08:42 | ED.GENADULT ---
HPI - General Adult General Chief complaint: Chest Pain Stated complaint: CP Time Seen by Provider: 06/03/22 08:37 Source: patient Mode of arrival: ambulatory Limitations: no limitations History of Present Illness HPI narrative: 41 years old white female came by private car to the emergency room complaining of tickle throat, nasal and postnasal discharge started 4 days ago, subsequently productive cough with shortness of breath over the last 2 days with chest pain. Patient is vaccinated for COVID, did not get boosted, works in the medical field. History of hyperlipidemia, does not smoke or drink or uses drugs Related Data Home Medications Medication Instructions Recorded Confirmed Zoloft 02/14/22 Allergies Allergy/AdvReac Type Severity Reaction Status Date / Time codeine Allergy Unknown Difficulty Verified 02/14/22 10:22 Breathing Review of Systems Review of Systems: All systems reviewed & are unremarkable except as noted in HPI and below PMFSH Past Medical History Medical History Adult BMI 45.0-49.9 kg/sq m BMI 50.0-59.9, adult Bone spur Diverticulitis of intestine without perforation or abscess Morbid (severe) obesity due to excess calories Surgical History Surgical History H/O eye surgery H/O knee surgery History of carpal tunnel surgery History of rotator cuff surgery Family History Family History Father Hypertension Family history of diabetes mellitus in first degree relative Acute myocardial infarction Pancreatitis Mother Acute myocardial infarction Cerebrovascular accident Sibling Hypertension Ovarian cyst COVID-19 Other Diabetes mellitus Family history of alcoholism Family history of malignant neoplasm Social History Social History Smoking packs per day: 0.5 Smoking cigarettes per day: 10.0 Years smoked: 14 Smoking pack-years: 7.00 Smoking status: Current every day smoker Tobacco type: cigarettes Second hand tobacco smoke exposure: No Alcohol intake: never Substance use: never Substance use type: does not use 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 Musculoskeletal: Normal range of motion, nontender back Neurologic: Alert and oriented ?3, TITLE AGENT is normal as tested, no gross motor deficit Course Vital Signs Vital signs: Vital Signs Temperature 36.7 C 06/03/22 08:11 Pulse Rate 98 06/03/22 08:11 Respiratory Rate 24 H 06/03/22 08:11 Blood Pressure 121/69 06/03/22 08:11 Pulse Oximetry 97 06/03/22 08:11 Oxygen Delivery Room Air 06/03/22 08:11 Temperature 36.7 C 06/03/22 08:11 Pulse Rate 90 06/03/22 09:02 Respiratory Rate 17 06/03/22 11:02 Blood Pressure 89/65 L 06/03/22 11:02 Pulse Oximetry 98 06/03/22 11:02 Oxygen Delivery Room Air 06/03/22 08:20 Medical Decision Making Vital Signs Vital Signs: Vital Signs Temperature 36.7 C 0
[2022-06-03 08:47] VITALS: BP 120/102; PULSE 93; RESP 26; O2SAT 98
[2022-06-03 09:02] VITALS: BP 123/76; PULSE 90; RESP 20; O2SAT 99
[2022-06-03 09:10] LABS: Alanine Aminotransferase 16 U/L (6-35); Albumin Level 4.2 g/dL (3.5-5.1); Alkaline Phosphatase 70 U/L (38-126); Anion Gap 9 mmol/L (8-16); Aspartate Amino Transferase 19 U/L (14-36); Bilirubin,Total 0.4 mg/dL (0.2-1.3); Blood Urea Nitrogen 11 mg/dL (7-17); Carbon Dioxide 27 mmol/L (22-30); Chloride 102 mmol/L (98-107); Estimated CRCL calculation 96 ml/min; Estimated Glomerular Filt Rate > 60; Glucose 112 mg/dL (65-110); Lipase 39 U/L (23-300); Potassium 4.3 mmol/L (3.4-5.0); Sodium 138 mmol/L (137-145)
[2022-06-03 09:20] LABS: Troponin I < 0.012 ng/mL (0.000-0.034)
[2022-06-03 09:31] LABS: Influenza A QL RT-PCR Negative (Negative); Influenza B QL RT-PCR Negative (Negative); SARS-CoV-2 RNA PCR Negative
[2022-06-03 11:02] VITALS: BP 89/65; RESP 17; O2SAT 98
[2022-06-03 11:30] LABS: INR 1.1; Prothrombin Time 13.7 Seconds (11.1-14.7)
[2022-06-03 11:35] LABS: Alveolar/Arterial O2 Gradient 23.8 mmHg; Base Excess ABG 1.6 mEq/l (+/-2.0); Fractional Inspired Oxygen 21 %; HCO3 ABG 25.6 mEq/l (22.0-26.0); Oxygen Content ABG 16.4 %vol (16.0-22.0); Oxygen Saturation ABG 96.3 % (95.0-100.0); Oxyhemoglobin 92.8 % THb (90.0-100.0); PCO2 ABG 38.2 mmHg (35.0-45.0); PO2 ABG 80.2 mmHg (80.0-100.0); PO2 FiO2 Ratio Arterial Blood 3.82 %; Total Hemoglobin 12.5 g/dL (12.0-18.0); pH ABG 7.444 (7.350-7.450)
[2022-06-03 11:37] LABS: Modified Allen's Test Pass; Site Drawn LEFT RADIAL
[2022-06-03 11:41] LABS: CRP 2.2 mg/dL (<1.0)
[2022-06-03 11:42] LABS: D Dimer 1.23 ug/mL (<0.48)
[2022-06-03 11:50] LABS: Troponin I < 0.012 ng/mL (0.000-0.034)
[2022-06-03] MEDS: ACETAMINOPHEN 325 MG TABLET 650 MG PO (12:56)
== END 2022-06-03 13:18 | disposition home or self-care (01) ==
PROVIDERS: Emergency Provider Emergency Medicine; PCP Family Medicine
DX: J06.9 Acute upper respiratory infection, unspecified (principal); Z20.822 Contact with and (suspected) exposure to COVID-19; E66.01 Morbid (severe) obesity due to excess calories; Z68.41 Body mass index [BMI] 40.0-44.9, adult; F17.210 Nicotine dependence, cigarettes, uncomplicated
CPT/HCPCS: 36415; 36600; 71045; 71275; 80053; 82805; 83605; 83690; 84484; 85025; 85380; 85610; 85730; 86140; 87040; 87502; 93005; 99284; A9270; C9803; Q9967; U0003; U0005

== ENCOUNTER 2022-07-20 10:11 | Emergency (ER) | payer OTHER, SELFPAY ==
--- NOTE | ~2022-07-20 | XR_ITS ---
EXAMINATION: XR chest 2V DATE: 07/20/2022 10:57 INDICATION: Cough and wheezing. TECHNIQUE: Frontal and lateral views of the chest were obtained. COMPARISON: Chest single view 06/03/2022, chest CT 06/03/2022 FINDINGS: The chest demonstrates clear lungs without pneumonia, pleural effusion, or pneumothorax. Th e heart size is normal. IMPRESSION: 1. No acute cardiopulmonary disease. Reviewed, dictated and finalized at location A.
[2022-07-20 10:21] VITALS: BP 119/71; PULSE 96; RESP 20; TEMP 36.3; O2SAT 97
--- NOTE | 2022-07-20 10:43 | ED.URI ---
HPI - URI/Sore Throat General Chief Complaint: Upper Respiratory Infection Stated Complaint: dizziness,bilateral ear pain,cough Source: patient Mode of arrival: ambulatory Limitations: no limitations History of Present Illness HPI Narrative: 41 year old female presents to [facility] with complaints of cough, shortness of breath, wheezing, bilateral ear pain, intermittent dizziness, fatigue and chills for the past 2 days. Patient reports that she did run 100.9 fever 2 days ago but has not had a fever since. Patient has been taking umvb-fuy-rzwkept cold medications with minimal relief. Patient does use an inhaler as needed as she has a history of chronic wheezing and is currently being worked up by her primary care provider for asthma. Patient reports that she is scheduled for lung testing on August 07. Patient reports that her son was diagnosed with COVID 12 days ago, her brother diagnosed with COVID 1 week ago and her father is currently hospitalized due to COVID. Patient denies nausea, vomiting, diarrhea, headache or chest pains. MD elicited complaint: cough, rhinorrhea and nasal congestion Onset (ago): day(s) (2) Able to tolerate fluids by mouth: Yes Exacerbating factors: nothing Relieving factors: nothing Context: sick contacts Associated symptoms: fever and chills Treatments prior to arrival: cold medicine Related Data Home Medications Medication Instructions Recorded Confirmed atorvastatin 40 mg tablet (Lipitor) 40 mg PO DAILY 07/20/22 07/20/22 loratadine 10 mg tablet (Claritin) 10 mg PO DAILY 07/20/22 07/20/22 sertraline 50 mg tablet (Zoloft) 50 mg PO DAILY 07/20/22 07/20/22 Allergies Allergy/AdvReac Type Severity Reaction Status Date / Time codeine Allergy Unknown Difficulty Verified 07/20/22 10:40 Breathing Review of Systems Constitutional: Constitutional: Reports chills, Reports fatigue, Reports fever(s) and Denies weakness ENT: Denies vertigo, Reports dizziness, Denies epistaxis, Reports nasal congestion and Denies sore throat Cardiovascular: Cardiovascular: Denies chest pain, Denies radiating jaw, neck or arm pain and Denies slow heart rate Respiratory: Respiratory: Reports cough, Reports dyspnea and Reports wheezing Gastrointestinal: Gastrointestinal: Denies diarrhea, Denies nausea and Denies vomiting Integumentary/Breasts: Skin/Breast: Denies rash PMFSH Past Medical History Medical History Adult BMI 45.0-49.9 kg/sq m BMI 50.0-59.9, adult Bone spur Diverticulitis of intestine without perforation or abscess Morbid (severe) obesity due to excess calories Surgical History Surgical History H/O eye surgery H/O knee surgery History of carpal tunnel surgery History of rotator cuff surgery Family History Family History Father Hypertension Family history of diabetes mellitus in first degree relative Acute myocardial infarction Pancreatitis Mother Acute myocardial infarction Cerebrovascular accident Sibling Hypertension Ovarian cyst COVID-19 Other Diabetes mellitus Family history of alcoholism Family history of malignant neoplasm Social History Social History Smoking packs per day: 0.5 Smoking cigarettes per day: 10.0 Years smoked: 16 Smoking pack-years: 8.00 Smoking status: Current every day smoker (0.5 ppd) Tobacco type: cigarettes Second hand tobacco smoke exposure: No Alcohol intake: never Substance use: never Substance use type: does not use 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 There is no relevant family history pertinent to the presenti
== END 2022-07-20 11:35 | disposition home or self-care (01) ==
PROVIDERS: Emergency Provider Nurse Practitioner Family; PCP Family Medicine
DX: B34.9 Viral infection, unspecified (principal); E66.01 Morbid (severe) obesity due to excess calories; Z68.41 Body mass index [BMI] 40.0-44.9, adult; F17.210 Nicotine dependence, cigarettes, uncomplicated; Z20.822 Contact with and (suspected) exposure to COVID-19
CPT/HCPCS: 71046; 87426; 87804; 99213; C9803; G0463

== ENCOUNTER 2022-09-23 10:04 | Emergency (ER) | payer OTHER, SELFPAY ==
--- NOTE | ~2022-09-23 | XR_ITS ---
EXAMINATION: XR abdomen obstructive series DATE: 09/23/2022 11:22 INDICATION: Abdominal pain TECHNIQUE: Supine and upright views of the abdomen. FINDINGS: 03/05/2022 The visualized lung parenchyma is normal.. There is a nonobstructive bowel gas pattern. Gas and stool are seen throughout the colon to the level of the rectum. There is no free air. IMPRESSION: 1. No acute abdominal abnormality. Reviewed, dictated and finalized at location B. MAINTENANCE WORKER
[2022-09-23 10:35] VITALS: BP 124/85; PULSE 91; RESP 20; TEMP 36.3; O2SAT 99
--- NOTE | 2022-09-23 11:03 | ED.ABDPAIN ---
HPI - Abdominal Pain General Chief Complaint: Abdominal Pain Stated Complaint: . Time Seen by Provider: 09/23/22 11:03 Source: patient Mode of arrival: ambulatory Limitations: no limitations History of Present Illness HPI narrative: 42-year-old female presents with complaint of lower abdominal cramping, bloating, nausea, feeling like she is constipated since last night. Was able have a small bowel movement this morning. Afebrile. States that cramping started after eating a chicken breast. No new urinary symptoms but does report urgency, stress incontinence over the past few months. Denies blood in stool. History of diverticulitis 1 year ago. All systems reviewed and negative except as noted above. Related Data Home Medications Medication Instructions Recorded Confirmed atorvastatin 40 mg tablet (Lipitor) 40 mg PO DAILY 07/20/22 09/23/22 loratadine 10 mg tablet (Claritin) 10 mg PO DAILY 07/20/22 09/23/22 sertraline 50 mg tablet (Zoloft) 50 mg PO DAILY 07/20/22 09/23/22 Allergies Allergy/AdvReac Type Severity Reaction Status Date / Time codeine Allergy Unknown Difficulty Verified 09/23/22 10:48 Breathing azithromycin AdvReac Intermediate Palpitation Verified 09/23/22 10:48 s Review of Systems Review of Systems: CONSTITUTIONAL: Denies fever, chills, or sweats. EYES: Denies visual changes, redness, or discharge. ENT: Denies rhinorrhea, congestion, sore throat, or otalgia. CARDIOVASCULAR: Denies chest pain, palpitations, or edema. RESPIRATORY: Denies cough or dyspnea. GASTROINTESTINAL: Reports abdominal pain, nausea, constipation. Denies vomiting, or diarrhea. GENITOURINARY: Denies dysuria or hematuria. SKIN: Denies rash or itching. MUSCULOSKELETAL: Denies back pain, joint pain, or myalgia. NEUROLOGIC: Denies headache, numbness, or weakness. PSYCHIATRIC: Denies anxiety or depression. All other systems reviewed are negative, except as documented in HPI. [facility] Past Medical History Medical History Adult BMI 45.0-49.9 kg/sq m BMI 50.0-59.9, adult BMI greater than 40 Bone spur Diverticulitis of intestine without perforation or abscess Morbid (severe) obesity due to excess calories URI (upper respiratory infection) Surgical History Surgical History H/O eye surgery H/O knee surgery History of carpal tunnel surgery History of rotator cuff surgery Family History Family History Father Hypertension Family history of diabetes mellitus in first degree relative Acute myocardial infarction Pancreatitis Mother Acute myocardial infarction Cerebrovascular accident Sibling Hypertension Ovarian cyst COVID-19 Other Diabetes mellitus Family history of alcoholism Family history of malignant neoplasm Social History Social History Smoking packs per day: 0.5 Smoking cigarettes per day: 10.0 Years smoked: 16 Smoking pack-years: 8.00 Smoking status: Current every day smoker (0.5 ppd) Tobacco type: cigarettes Second hand tobacco smoke exposure: No Alcohol intake: never Substance use: never Substance use type: does not use 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 There is no relevant family history pertinent to the presenting complaint. Exam Narrative: GENERAL: This is a well-nourished, well-developed patient, in no apparent distress. HEAD: normocephalic, atraumatic. EYES: PERRL. Sclera clear/white. Vision is grossly intact. EARS: External ears normal NOSE: External nose normal NECK: Neck supple, non-tender without lymphadenopathy, masses or thyromegaly. CA
== END 2022-09-23 12:00 | disposition short-term general hospital (02) ==
PROVIDERS: Emergency Provider Nurse Practitioner Family; PCP Family Medicine
DX: R10.30 Lower abdominal pain, unspecified (principal); F17.210 Nicotine dependence, cigarettes, uncomplicated
CPT/HCPCS: 74019; 81003; 99213; G0463

== ENCOUNTER 2022-09-23 12:08 | Emergency (ER) | payer OTHER, SELFPAY ==
[2022-09-23 12:09] VITALS: BP 140/86; PULSE 94; RESP 18; TEMP 36.4; O2SAT 97
--- NOTE | 2022-09-23 16:55 | PC.NURSE ---
Pt called mult times for labs/repeat vs, room - no answer. Did not notify anyone she was leaving and exit was not witnessed.
== END 2022-09-23 17:21 | disposition left against medical advice (07) ==
PROVIDERS: PCP Family Medicine
DX: R10.9 Unspecified abdominal pain (principal)
CPT/HCPCS: 99199

== ENCOUNTER 2023-03-26 06:57 | Emergency (ER) | payer OTHER, SELFPAY ==
[2023-03-26] VITALS (7 sets, daily range): BP systolic 114–136; BP diastolic 55–87; PULSE 87–113; RESP 16–20; TEMP 36.4–36.9; O2SAT 94–99
--- NOTE | ~2023-03-26 | CT_ITS ---
CT of the Abdomen and Pelvis: Indication: Abdominal pain Technique: 2.5 mm axial scans were obtained through the abdomen and pelvis following intravenous adm inistration of 100 cc of Omnipaque 350. Dose reduction technique was used on this scan by utilizing a utomated exposure control and iterative reconstruction technique. The dose-length product (DLP) was 1 262.38 mGy-cm. COMPARISON: 01/26/2022 Findings: Scans through the lung bases are unremarkable. The liver, spleen, pancreas, gallbladder, adrenals and kidneys are within normal limits. No evidence of aortic aneurysm. No lymphadenopathy. There is wall thickening and pericolonic inflammatory change the sigmoid colon, consistent with focal acute diverticulitis. No bowel obstruction. No definite abscess or free air. Images through the pelvis were performed. Urinary bladder unremarkable. No adnexal mass evident. Impression: Findings consistent with sigmoid diverticulitis. No definite abscess or free air. Reviewed, dictated and finalized at [facility]. Impression: Findings consistent with sigmoid diverticulitis. No definite abscess or free ai r.
[2023-03-26 07:39] LABS: Appearance Urine Cloudy (Clear); Bacteria Urine 1+ /hpf; Bilirubin Urine 1+ (Negative); Color Urine Dark Yellow (Yellow); Glucose Urine UA Negative (Negative); Ketones Urine Trace mg/dL (Negative); Leukocyte Esterase Ur Trace LEU/UL (Negative); Nitrate Urine Negative (Negative); Non Pathogenic Casts 0-2; Protein Urine 1+ mg/dL (Negative); Specific Grav Ur 1.025 (1.001-1.035); Squamous Epithelial Cell Urine Moderate /hpf (Few); WBC Urine 0-5 /hpf
[2023-03-26 07:46] LABS: Add Urine Microscopic? YES
[2023-03-26 07:49] LABS: Basophils Percent Auto 0.2 % (0.2-1.2); Eosinophils Absolute Auto 0.1 K/mm3 (0-0.3); Eosinophils Percent Auto 0.5 % (0-4.4); Hematocrit 39.1 % (37.0-47.0); Hemoglobin 12.1 g/dL (12.0-15.0); Immature Granulocyte Absolute 0.06 K/mm3 (0.00-0.031); Immature Granulocyte Percent A 0.5 % (0-0.5); Lymphocytes Absolute Auto 2.12 K/mm3 (0.9-3.2); Lymphocytes Percent Auto 17.8 % (18.3-44.2); Mean Corpuscular HGB Conc 30.9 g/dl (32-36); Mean Corpuscular Hemoglobin 23.5 pg (26-34); Mean Corpuscular Volume 75.9 fl (80-100); Monocytes Absolute Auto 0.4 K/mm3 (0.1-0.6); Monocytes Percent Auto 3.5 % (2.6-8.5); Neutrophils Absolute Auto 9.2 K/mm3 (1.3-6.7); Neutrophils Percent Auto 77.5 % (45.5-73.1); Platelet Count Result 416 k/mm3 (150-375); Red Blood Count 5.15 M/mm3 (4.2-5.4); Red Cell Distribution Width 16.4 % (11.5-14.5); White Blood Count 11.9 K/mm3 (4.5-10.0)
--- NOTE | 2023-03-26 07:57 | ED.ABDPAIN ---
HPI - Abdominal Pain General Chief Complaint: Abdominal Pain Stated Complaint: abdominal pain Time Seen by Provider: 03/26/23 07:05 History of Present Illness HPI narrative: 42-year-old female presenting to the emergency department for evaluation of left lower quadrant pain. Patient states that the pain started last night and has an intense cramping pain. Patient states the pain does radiate down towards her groin. Patient reports she does have a prior history of kidney stones and diverticulitis. Patient states this pain feels more similar to her diverticulitis. Patient states she last had diverticulitis treated empirically approximately 1 month ago by her primary care physician. Patient suspects that she was on Augmentin at that time. Patient does not have routine follow-up with a GI physician and is unsure of when she had her last colonoscopy. Patient reports she has had some soft stools but denies any diarrhea or constipation. Patient denies any blood in her stool. Patient also denies any blood in her urine. Patient states currently her nausea is controlled and declined any medication for nausea. Patient did request Tylenol for pain control, patient declined anything stronger than Tylenol. Related Data Home Medications Medication Instructions Recorded Confirmed atorvastatin 40 mg tablet (Lipitor) 40 mg PO DAILY 07/20/22 09/30/22 loratadine 10 mg tablet (Claritin) 10 mg PO DAILY 07/20/22 09/30/22 sertraline 50 mg tablet (Zoloft) 50 mg PO DAILY 07/20/22 09/30/22 Allergies Allergy/AdvReac Type Severity Reaction Status Date / Time codeine Allergy Unknown Difficulty Verified 03/26/23 07:20 Breathing azithromycin AdvReac Intermediate Palpitation Verified 03/26/23 07:20 s Review of Systems Review of Systems: All systems reviewed & are unremarkable except as noted in HPI and below PMFSH Past Medical History Medical History Adult BMI 45.0-49.9 kg/sq m BMI 50.0-59.9, adult BMI greater than 40 Bone spur Diverticulitis of intestine without perforation or abscess Morbid (severe) obesity due to excess calories URI (upper respiratory infection) Surgical History Surgical History H/O eye surgery H/O knee surgery History of carpal tunnel surgery History of rotator cuff surgery Family History Family History Father Hypertension Family history of diabetes mellitus in first degree relative Acute myocardial infarction Pancreatitis Mother Acute myocardial infarction Cerebrovascular accident Sibling Hypertension Ovarian cyst COVID-19 Other Diabetes mellitus Family history of alcoholism Family history of malignant neoplasm Social History Social History Smoking packs per day: 0.5 Smoking cigarettes per day: 10.0 Years smoked: 16 Smoking pack-years: 8.00 Smoking status: Current every day smoker (0.5 ppd) Tobacco type: cigarettes Second hand tobacco smoke exposure: No Alcohol intake: never Substance use: never Substance use type: does not use Living arrangements: with family Occupation/Education: occupation 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 HEAD: normocephalic, atraumatic. EYES: PERRLA/EOMI, conjunctivae clear. NOSE: Normal no drainage NECK: Supple. No adenopathy, no masses. RESPIRATORY: Airway patent, respirations nonlabored. Clear to auscultation bilaterally, no rales, rhonchi, wheezing. CARDIOVASCULAR: Regular rate and rhythm without murmurs rubs or gallops. ABDOMINAL: Soft, upper quadrant tenderness to palpation. No left CVA tenderness. MUSCULOSKELETAL: Moves all extre
[2023-03-26 08:09] LABS: Alanine Aminotransferase 18 U/L (6-35); Albumin Level 4.5 g/dL (3.5-5.1); Alkaline Phosphatase 75 U/L (38-126); Anion Gap 8 mmol/L (8-16); Aspartate Amino Transferase 19 U/L (14-36); Bilirubin,Total 0.9 mg/dL (0.2-1.3); Blood Urea Nitrogen 12 mg/dL (7-17); Carbon Dioxide 26 mmol/L (22-30); Chloride 103 mmol/L (98-107); Estimated CRCL calculation 112 ml/min; Estimated Glomerular Filt Rate > 60; Glucose 102 mg/dL (65-110); Lipase 33 U/L (23-300); Potassium 3.9 mmol/L (3.4-5.0); Sodium 137 mmol/L (137-145)
[2023-03-26] MEDS: metroNIDAZOLE 500 MG/ISO 100ML 500 MG/100 ML BAG 100 MG IVPB (09:02)
[2023-03-26] MEDS: CIPROFLOXACIN 400 MG/D5W 200ML 200 ML 200 MG IVPB (09:32)
== END 2023-03-26 11:02 | disposition home or self-care (01) ==
PROVIDERS: Emergency Provider Emergency Medicine; PCP Family Medicine
DX: K57.32 Diverticulitis of large intestine without perforation or abscess without bleeding (principal); E66.01 Morbid (severe) obesity due to excess calories; Z68.41 Body mass index [BMI] 40.0-44.9, adult; F17.210 Nicotine dependence, cigarettes, uncomplicated; Z87.442 Personal history of urinary calculi
CPT/HCPCS: 36415; 74177; 80053; 81001; 81025; 83690; 85025; 96365; 96368; 96375; 99284; J0131; J0744; Q9967

== ENCOUNTER 2023-06-22 09:50 | Emergency (ER) | payer OTHER, SELFPAY ==
--- NOTE | ~2023-06-22 | CT_ITS ---
EXAMINATION: CT abdomen pelvis w con INDICATION: Abdominal pain TECHNIQUE: Computed tomographic images of the abdomen and pelvis were obtained after the administrati on of 100 cc of Omnipaque 350 intravenous contrast. The dose-length product (DLP) was 1272.46 mGy-cm. Automated exposure control and iterative reconstruction technique were employed. COMPARISON: 03/26/2023 FINDINGS: Minimal dependent atelectasis is present in the lung bases. The heart size is normal. The l iver, spleen, pancreas, gallbladder, and adrenal glands are normal. The kidneys are unremarkable. The appendix is normal. Colonic diverticulosis is present without evidence of diverticulitis. There is a left inguinal and bilateral obturator lymphadenopathy of unclear etiology. No free intraperitoneal g as or evidence of bowel obstruction. IMPRESSION: 1. No CT correlate for the patient's symptoms. 2. Pelvic and left inguinal lymphadenopathy of unclear etiology, possibly reactive however finding co uld also reflect lymphoma. Reviewed, dictated and finalized at location A. IMPRESSION: 1. No CT correlate for the patient's symptoms. 2. Pelvic and left inguinal lymphadenopathy of unclear etiology, possibly react amari however finding could also reflect lymphoma.
[2023-06-22 10:30] VITALS: BP 137/79; PULSE 105; RESP 22; TEMP 36.6; O2SAT 99
[2023-06-22 10:59] LABS: Appearance Urine Clear (Clear); Bacteria Urine Rare /hpf; Bilirubin Urine Negative (Negative); Blood Urine Negative (Negative); Color Urine Yellow (Yellow); Glucose Urine UA Negative (Negative); Ketones Urine Negative (Negative); Leukocyte Esterase Ur Trace LEU/UL (Negative); Nitrate Urine Negative (Negative); Non Pathogenic Casts 0-2; Protein Urine Trace mg/dL (Negative); RBC Urine 0-2 /hpf (0-2); Specific Grav Ur 1.023 (1.001-1.035); Squamous Epithelial Cell Urine Few /hpf (Few); WBC Urine 0-5 /hpf; pH Urine 6.5 (5.0-9.0)
[2023-06-22 11:03] LABS: Add Urine Microscopic? YES
[2023-06-22 11:34] VITALS: O2SAT 98
[2023-06-22] MEDS: MORPHINE SULFATE (*CRX) 4 MG/ML INJ IV PUSH (11:35)
[2023-06-22] MEDS: ONDANSETRON INJ 4 MG/2 ML VIAL IV PUSH (11:35)
[2023-06-22 11:36] VITALS: BP 138/89; O2SAT 97
[2023-06-22 11:37] LABS: Basophils Percent Auto 0.2 % (0.2-1.2); Eosinophils Percent Auto 0.1 % (0-4.4); Hemoglobin 11.9 g/dL (12.0-15.0); Immature Granulocyte Absolute 0.07 K/mm3 (0.00-0.031); Immature Granulocyte Percent A 0.4 % (0-0.5); Lymphocytes Absolute Auto 1.28 K/mm3 (0.9-3.2); Lymphocytes Percent Auto 7.3 % (18.3-44.2); Mean Corpuscular HGB Conc 31.3 g/dl (32-36); Mean Corpuscular Hemoglobin 24.7 pg (26-34); Mean Corpuscular Volume 78.8 fl (80-100); Mean Platelet Volume 9.1 fl (7.4-10.4); Monocytes Absolute Auto 0.6 K/mm3 (0.1-0.6); Monocytes Percent Auto 3.3 % (2.6-8.5); Neutrophils Absolute Auto 15.6 K/mm3 (1.3-6.7); Neutrophils Percent Auto 88.7 % (45.5-73.1); Platelet Count Result 357 k/mm3 (150-375); Red Blood Count 4.82 M/mm3 (4.2-5.4); Red Cell Distribution Width 16.1 % (11.5-14.5); White Blood Count 17.6 K/mm3 (4.5-10.0)
[2023-06-22 11:41] LABS: Pregnancy On Board Control Positive; Urine Pregnancy Test Negative
[2023-06-22 11:46] VITALS: BP 124/70; O2SAT 99
[2023-06-22 11:50] LABS: Alanine Aminotransferase 19 U/L (6-35); Albumin Level 4.4 g/dL (3.5-5.1); Alkaline Phosphatase 58 U/L (38-126); Anion Gap 4 mmol/L (8-16); Aspartate Amino Transferase 23 U/L (14-36); Bilirubin,Total 0.8 mg/dL (0.2-1.3); Blood Urea Nitrogen 12 mg/dL (7-17); Calcium 9.2 mg/dL (8.4-10.2); Carbon Dioxide 24 mmol/L (22-30); Chloride 104 mmol/L (98-107); Estimated CRCL calculation 111 ml/min; Estimated Glomerular Filt Rate > 60; Glucose 101 mg/dL (65-110); Lipase 30 U/L (23-300); Sodium 132 mmol/L (137-145)
[2023-06-22 12:05] LABS: Potassium 4.3 mmol/L (3.4-5.0)
[2023-06-22 13:42] VITALS: BP 132/78; PULSE 102; O2SAT 95
--- NOTE | 2023-06-22 14:04 | ED.GENADULT ---
HPI - General Adult General Chief complaint: Abdominal Pain Stated complaint: abd pain Time Seen by Provider: 06/22/23 11:11 History of Present Illness HPI narrative: Patient is a 42-year-old female who presents ER with suprapubic abdominal pain. Woke up this morning with the discomfort is worsened with any type of movement. No urinary frequency urgency or dysuria. No GI symptoms. Denies any trauma to her abdomen. She is not sexually active and has no concerns for STI. No vaginal discharge or vaginal bleeding. Denies any inflammation of the skin or other sites of infection. Related Data Home Medications Medication Instructions Recorded Confirmed atorvastatin 40 mg tablet (Lipitor) 40 mg PO DAILY 07/20/22 05/20/23 sertraline 50 mg tablet (Zoloft) 50 mg PO DAILY 07/20/22 05/20/23 Allergies Allergy/AdvReac Type Severity Reaction Status Date / Time codeine Allergy Unknown Difficulty Verified 05/20/23 15:13 Breathing azithromycin AdvReac Intermediate Palpitation Verified 05/20/23 15:13 s Review of Systems Review of Systems: All systems reviewed & are unremarkable except as noted in HPI and below Constitutional: Constitutional: Denies chills, Denies fatigue and Denies fever(s) Cardiovascular: Cardiovascular: Denies chest pain, Denies rapid heart rate and Denies radiating jaw, neck or arm pain Respiratory: Respiratory: Denies cough and Denies dyspnea Gastrointestinal: Gastrointestinal: Reports abdominal pain, Denies diarrhea and Denies nausea Genitourinary: Genitourinary: Denies abnormal vaginal bleeding, Denies nocturia, Denies dysuria, Denies pelvic pain, Denies flank pain and Denies vaginal discharge Integumentary/Breasts: Skin/Breast: Reports system reviewed and no additional complaints, except as docu PMFSH Past Medical History Medical History Adult BMI 45.0-49.9 kg/sq m BMI 50.0-59.9, adult BMI greater than 40 Bone spur Diverticulitis of intestine without perforation or abscess Morbid (severe) obesity due to excess calories URI (upper respiratory infection) Surgical History Surgical History H/O eye surgery H/O knee surgery History of carpal tunnel surgery History of rotator cuff surgery Family History Family History Father Hypertension Family history of diabetes mellitus in first degree relative Acute myocardial infarction Pancreatitis Mother Acute myocardial infarction Cerebrovascular accident Sibling Hypertension Ovarian cyst COVID-19 Other Diabetes mellitus Family history of alcoholism Family history of malignant neoplasm Social History Social History Smoking packs per day: 0.5 Smoking cigarettes per day: 10.0 Years smoked: 16 Smoking pack-years: 8.00 Smoking status: Current every day smoker (0.5 ppd) Tobacco type: cigarettes Second hand tobacco smoke exposure: No Alcohol intake: never Substance use: never Substance use type: does not use Living arrangements: with family Occupation/Education: occupation 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 HEAD: Normocephalic, atraumatic. ENT: Mucous membranes moist. NECK: Supple. CHEST: Clear to auscultation. No respiratory distress. HEART: Regular rate and rhythm. Normal peripheral pulses. ABDOMEN: Soft, tender palpation right lower quadrant with guarding as well as in the suprapubic region, no masses palpated, nondistended. EXTREMITIES: Normal range of motion. No edema. SKIN: Warm, dry, no rash. NEURO: Alert and oriented x3. PSYCH: Normal mood and affect. Course Course Emergency Course: Patient resting co
[2023-06-22 14:23] VITALS: BP 128/81; PULSE 100; O2SAT 99
== END 2023-06-22 14:23 | disposition home or self-care (01) ==
PROVIDERS: Emergency Provider Emergency Medicine; PCP Family Medicine
DX: L04.1 Acute lymphadenitis of trunk (principal); E66.01 Morbid (severe) obesity due to excess calories; Z68.41 Body mass index [BMI] 40.0-44.9, adult; F17.210 Nicotine dependence, cigarettes, uncomplicated
CPT/HCPCS: 36415; 74177; 80053; 81001; 81025; 83690; 85025; 96374; 96375; 99284; J2270; J2405; Q9967

== ENCOUNTER 2023-07-02 16:35 | Outpatient (CLI) | payer OTHER, SELFPAY ==
--- NOTE | ~2023-07-02 | XR_ITS ---
EXAMINATION: XR knee LT 3V DATE: 07/02/2023 16:56 INDICATION: Left knee pain. TECHNIQUE: 3 views of left knee including weightbearing views were obtained. COMPARISON: Left tibia and fibula radiographs 08/09/2017 FINDINGS: Bone alignment is normal. No fracture. There is mild osteoarthritis of patellofemoral sobia rtment. No knee joint effusion. IMPRESSION: 1. Mild left knee osteoarthritis. Reviewed, dictated and finalized at location E.
== END 2023-07-02 16:36 | disposition home or self-care (01) ==
PROVIDERS: PCP Family Medicine; Visit Provider Nurse Practitioner Family
DX: M25.562 Pain in left knee (principal); M25.462 Effusion, left knee; M17.12 Unilateral primary osteoarthritis, left knee
CPT/HCPCS: 73562

== ENCOUNTER 2023-07-07 14:16 | Outpatient (CLI) | payer OTHER, SELFPAY ==
[2023-07-07 14:45] LABS: Basophils Absolute Auto 0.1 K/mm3 (0.0-0.1); Basophils Percent Auto 0.4 % (0.2-1.2); Eosinophils Absolute Auto 0.1 K/mm3 (0-0.3); Eosinophils Percent Auto 0.6 % (0-4.4); Hematocrit 37.4 % (37.0-47.0); Hemoglobin 11.8 g/dL (12.0-15.0); Immature Granulocyte Absolute 0.05 K/mm3 (0.00-0.031); Immature Granulocyte Percent A 0.4 % (0-0.5); Lymphocytes Absolute Auto 3.12 K/mm3 (0.9-3.2); Lymphocytes Percent Auto 25.1 % (18.3-44.2); Mean Corpuscular HGB Conc 31.6 g/dl (32-36); Mean Corpuscular Hemoglobin 24.9 pg (26-34); Mean Corpuscular Volume 78.9 fl (80-100); Mean Platelet Volume 9.1 fl (7.4-10.4); Monocytes Absolute Auto 0.6 K/mm3 (0.1-0.6); Monocytes Percent Auto 4.4 % (2.6-8.5); Neutrophils Absolute Auto 8.6 K/mm3 (1.3-6.7); Neutrophils Percent Auto 69.1 % (45.5-73.1); Platelet Count Result 437 k/mm3 (150-375); Red Blood Count 4.74 M/mm3 (4.2-5.4); White Blood Count 12.4 K/mm3 (4.5-10.0)
== END 2023-07-07 14:17 | disposition home or self-care (01) ==
LOC: ANHLAB 14:18
PROVIDERS: PCP Family Medicine; Visit Provider Nurse Practitioner Family
DX: D72.829 Elevated white blood cell count, unspecified (principal)
CPT/HCPCS: 36415; 85025

== ENCOUNTER 2023-07-28 11:04 | Outpatient (CLI) | payer OTHER, SELFPAY ==
[2023-07-28 11:20] LABS: Basophils Percent Auto 0.3 % (0.2-1.2); Eosinophils Absolute Auto 0.1 K/mm3 (0-0.3); Eosinophils Percent Auto 0.7 % (0-4.4); Hematocrit 39.7 % (37.0-47.0); Hemoglobin 12.4 g/dL (12.0-15.0); Immature Granulocyte Absolute 0.03 K/mm3 (0.00-0.031); Immature Granulocyte Percent A 0.3 % (0-0.5); Lymphocytes Absolute Auto 3.07 K/mm3 (0.9-3.2); Lymphocytes Percent Auto 28.3 % (18.3-44.2); Mean Corpuscular HGB Conc 31.2 g/dl (32-36); Mean Corpuscular Hemoglobin 24.9 pg (26-34); Mean Corpuscular Volume 79.9 fl (80-100); Mean Platelet Volume 8.8 fl (7.4-10.4); Monocytes Absolute Auto 0.5 K/mm3 (0.1-0.6); Monocytes Percent Auto 4.4 % (2.6-8.5); Neutrophils Absolute Auto 7.2 K/mm3 (1.3-6.7); Platelet Count Result 387 k/mm3 (150-375); Red Blood Count 4.97 M/mm3 (4.2-5.4); Red Cell Distribution Width 15.7 % (11.5-14.5); White Blood Count 10.9 K/mm3 (4.5-10.0)
[2023-07-28 12:30] LABS: Alanine Aminotransferase 16 U/L (6-35); Albumin Level 4.3 g/dL (3.5-5.1); Alkaline Phosphatase 63 U/L (38-126); Anion Gap 7 mmol/L (8-16); Aspartate Amino Transferase 16 U/L (14-36); Bilirubin,Total 0.4 mg/dL (0.2-1.3); Blood Urea Nitrogen 14 mg/dL (7-17); CRP 1.1 mg/dL (<1.0); Calcium 9.6 mg/dL (8.4-10.2); Carbon Dioxide 27 mmol/L (22-30); Chloride 104 mmol/L (98-107); Estimated Glomerular Filt Rate > 60; Glucose 109 mg/dL (65-110); Potassium 4.1 mmol/L (3.4-5.0); Sodium 138 mmol/L (137-145)
[2023-07-28 12:54] LABS: Erythrocyte Sedimentation Rate 28 mm/hr (0-20)
== END 2023-07-28 11:05 | disposition home or self-care (01) ==
LOC: ANHLAB 11:06
PROVIDERS: PCP Family Medicine; Visit Provider Internal Medicine Hematology & Oncology
DX: D72.829 Elevated white blood cell count, unspecified (principal)
CPT/HCPCS: 36415; 80053; 85025; 85652; 86140

== ENCOUNTER 2024-06-09 05:34 | Emergency (ER) | payer SELFPAY ==
--- NOTE | ~2024-06-09 | CT_ITS ---
CT of the Abdomen and Pelvis: Indication: Abdominal pain Technique: 2.5 mm axial scans were obtained through the abdomen and pelvis following intravenous adm inistration of 100 cc of Omnipaque 350. Dose reduction technique was used on this scan by utilizing a utomated exposure control and iterative reconstruction technique. The dose-length product (DLP) was 1 192.10 mGy-cm. COMPARISON: 06/22/2023 Findings: Scans through the lung bases are unremarkable. The liver, spleen, pancreas, gallbladder, adrenals and kidneys are within normal limits. No evidence of aortic aneurysm. No lymphadenopathy. There is mild inflammatory change about diverticulum at the distal descending colon, compatible with very mild acute diverticulitis. No abscess or free air. No bowel obstruction. Images through the pelvis were performed. Urinary bladder unremarkable. No pelvic mass seen. No ascit es. Impression: Very mild acute diverticulitis of the distal descending colon. No abscess or free air. Reviewed, dictated and finalized at location . Impression: Very mild acute diverticulitis of the distal descending colon. No abscess or fr ee air.
[2024-06-09 05:36] VITALS: BP 134/72; PULSE 86; RESP 16; TEMP 36.3; O2SAT 98
[2024-06-09 06:01] LABS: Basophils Percent Auto 0.3 % (0.2-1.2); Eosinophils Absolute Auto 0.1 K/mm3 (0-0.3); Eosinophils Percent Auto 1.4 % (0-4.4); Hematocrit 40.7 % (37.0-47.0); Hemoglobin 13.2 g/dL (12.0-15.0); Immature Granulocyte Absolute 0.03 K/mm3 (0.00-0.031); Immature Granulocyte Percent A 0.3 % (0-0.5); Lymphocytes Percent Auto 24.3 % (18.3-44.2); Mean Corpuscular HGB Conc 32.4 g/dl (32-36); Mean Corpuscular Hemoglobin 26.5 pg (26-34); Mean Corpuscular Volume 81.7 fl (80-100); Mean Platelet Volume 9.1 fl (7.4-10.4); Monocytes Absolute Auto 0.3 K/mm3 (0.1-0.6); Monocytes Percent Auto 3.9 % (2.6-8.5); Neutrophils Percent Auto 69.8 % (45.5-73.1); Platelet Count Result 360 k/mm3 (150-375); Red Blood Count 4.98 M/mm3 (4.2-5.4); Red Cell Distribution Width 15.3 % (11.5-14.5); White Blood Count 8.6 K/mm3 (4.5-10.0)
[2024-06-09 06:11] LABS: Alanine Aminotransferase 14 U/L (6-35); Alkaline Phosphatase 64 U/L (38-126); Anion Gap 11 mmol/L (4-12); Aspartate Amino Transferase 17 U/L (14-36); Bilirubin,Total 0.5 mg/dL (0.2-1.3); Blood Urea Nitrogen 15 mg/dL (7-17); Calcium 8.8 mg/dL (8.4-10.2); Carbon Dioxide 22 mmol/L (22-30); Chloride 102 mmol/L (98-107); Estimated Glomerular Filt Rate > 60; Glucose 158 mg/dL (65-110); Potassium 3.8 mmol/L (3.4-5.0); Sodium 135 mmol/L (137-145)
[2024-06-09 06:36] LABS: Add Urine Microscopic? YES; Appearance Urine Cloudy (Clear); Bacteria Urine 4+ /hpf; Bilirubin Urine Negative (Negative); Blood Urine Negative (Negative); Color Urine Yellow (Yellow); Glucose Urine UA Negative (Negative); Ketones Urine Negative (Negative); Leukocyte Esterase Ur Negative LEU/UL (Negative); Nitrate Urine Negative (Negative); Non Pathogenic Casts 0-2; Protein Urine Trace mg/dL (Negative); RBC Urine 0-2 /hpf (0-2); Specific Grav Ur 1.022 (1.001-1.035); Squamous Epithelial Cell Urine Many /hpf (Few); pH Urine 5.5 (5.0-9.0)
[2024-06-09 06:38] LABS: BEDSIDEPREGUCG Negative
[2024-06-09 07:30] VITALS: BP 139/86; PULSE 83; RESP 16; O2SAT 98
--- NOTE | 2024-06-09 07:35 | ED.ABDPAIN ---
HPI - Abdominal Pain General Chief Complaint: Abdominal Pain Stated Complaint: abdominal pain Time Seen by Provider: 06/09/24 06:55 History of Present Illness HPI narrative: 43-year-old female with history of diverticulitis, colitis and kidney stones presents to the emergency department for evaluation of left lower quadrant pain associated with nausea. Related Data Home Medications Medication Instructions Recorded Confirmed atorvastatin 40 mg tablet (Lipitor) 40 mg PO DAILY 07/20/22 08/11/23 sertraline 50 mg tablet (Zoloft) 50 mg PO DAILY 07/20/22 08/11/23 Allergies Allergy/AdvReac Type Severity Reaction Status Date / Time codeine Allergy Unknown Difficulty Verified 06/09/24 05:51 Breathing azithromycin AdvReac Intermediate Palpitation Verified 06/09/24 05:51 s Review of Systems Review of Systems: All systems reviewed & are unremarkable except as noted in HPI and below PMFSH Past Medical History Medical History Adult BMI 45.0-49.9 kg/sq m BMI 50.0-59.9, adult BMI greater than 40 Bone spur Diverticulitis of intestine without perforation or abscess Morbid (severe) obesity due to excess calories URI (upper respiratory infection) Surgical History Surgical History H/O eye surgery H/O knee surgery History of carpal tunnel surgery History of rotator cuff surgery Family History Family History Father Hypertension Family history of diabetes mellitus in first degree relative Acute myocardial infarction Pancreatitis Mother Acute myocardial infarction Cerebrovascular accident Sibling Hypertension Ovarian cyst COVID-19 Other Diabetes mellitus Family history of alcoholism Family history of malignant neoplasm Social History Social History Smoking packs per day: 0.5 Smoking cigarettes per day: 10.0 Years smoked: 16 Smoking pack-years: 8.00 Smoking status: Current every day smoker Tobacco type: cigarettes Second hand tobacco smoke exposure: No Alcohol intake: never Substance use: never Substance use type: does not use Lack of Transportation: No Lack of Food: Never True Current Housing: I Have Housing Concerned About Future Housing: No Difficulty Paying Gas/Electric Bills: No Difficulty Paying for Meds: No Currently Unemployed: No Education: High School Diploma/GED Difficulty w/ Childcare or Family Care: No Living arrangements: with family Occupation/Education: occupation Additional occupation/education comments: Sean in the [employer] Gender identity (if verbalized by the patient): Female Exam Narrative: APPEARANCE: Uncomfortable appearing HEAD: normocephalic, atraumatic. EYES: PERRLA/EOMI, conjunctivae clear. NOSE: Normal no drainage EARS:TMS clear with good light reflex. THROAT: Pharynx clear, no exudate. NECK: Supple. No adenopathy, no masses. RESPIRATORY: Airway patent, respirations nonlabored. Clear to auscultation bilaterally, no rales, rhonchi, wheezing. CARDIOVASCULAR: Regular rate and rhythm without murmurs rubs or gallops. ABDOMINAL: Left lower quadrant tenderness to palpation MUSCULOSKELETAL: Moves all extremities. Strength/ROM intact, No edema, No calf tenderness. NEURO: Alert. Cranial nerves II through XII intact. SKIN: Warm, dry. Normal Color Course Vital Signs Vital signs: Vital Signs Temperature 97.3 F L 06/09/24 05:36 Pulse Rate 86 06/09/24 05:36 Respiratory Rate 16 06/09/24 05:36 Blood Pressure 134/72 06/09/24 05:36 Pulse Oximetry 98 06/09/24 05:36 Oxygen Delivery Room Air 06/09/24 05:36 Temperature 97.3 F L 06/09/24 05:36 Pulse Rate 83 06/09/24 08:50 Respiratory Rate 16 06/09/24 08:50 Blood Pressure 117/74 06/09/24 08:50 Pulse Oximetry 98 0
[2024-06-09] MEDS: metroNIDAZOLE 500 MG TABLET PO (08:02)
[2024-06-09] MEDS: CIPROFLOXACIN 500 MG TAB PO (08:02)
[2024-06-09 08:50] VITALS: BP 117/74; PULSE 83; RESP 16; O2SAT 98
== END 2024-06-09 08:50 | disposition home or self-care (01) ==
PROVIDERS: Emergency Medicine; Emergency Provider Emergency Medicine; PCP Family Medicine
DX: K57.32 Diverticulitis of large intestine without perforation or abscess without bleeding (principal); E66.01 Morbid (severe) obesity due to excess calories; Z68.42 Body mass index [BMI] 45.0-49.9, adult; F17.210 Nicotine dependence, cigarettes, uncomplicated; Z87.442 Personal history of urinary calculi; Z79.899 Other long term (current) drug therapy
CPT/HCPCS: 36415; 74177; 80053; 81001; 81025; 85025; 87086; 87088; 99284; A9270; Q9967

== ENCOUNTER 2024-08-23 13:57 | Outpatient (CLI) | payer OTHER, SELFPAY ==
--- NOTE | ~2024-08-23 | XR_ITS ---
XR wrist RT 2V Ordering provider: Kyung Hall APRN History: . M25.531 - Pain in right wrist, GENERAL PAIN X2 WK, NO INJURY . Comparison: March 17, 2019 FINDINGS: BONES: No acute fracture or dislocation. No definite scaphoid fracture. JOINT SPACES: Normal. SOFT TISSUES: Normal. IMPRESSION: No acute osseous abnormality right wrist. Reviewed, dictated and finalized at location A.
== END 2024-08-23 13:58 | disposition home or self-care (01) ==
LOC: ANHIMG 14:01
PROVIDERS: PCP Family Medicine; Visit Provider Nurse Practitioner Adult Health
DX: M25.531 Pain in right wrist (principal)
CPT/HCPCS: 73100

== ENCOUNTER 2024-12-08 07:45 | Emergency (ER) | payer OTHER, SELFPAY ==
[2024-12-08] VITALS (12 sets, daily range): BP systolic 104–132; BP diastolic 61–74; PULSE 73–83; RESP 14–26; TEMP 36.5; O2SAT 96–98
--- NOTE | ~2024-12-08 | CT_ITS ---
Non-contrast Head CT History: CVA Technique: Axial non-contrast imaging of the brain was performed. Dose reduction technique was used on this scan by utilizing automated exposure control and iterative reconstruction technique. The dose -length product (DLP) was 605.33 mGy-cm. Findings: There is no evidence of intracranial hemorrhage, mass lesion, or acute infarct. Brain par enchyma appears normal. The ventricles and subarachnoid spaces are normal in size. The calvarium ap pears normal. The visualized paranasal sinuses and mastoid air cells are clear. Impression: No significant abnormality seen. Reviewed, dictated and finalized at location . T MECHANIC Impression: No significant abnormality seen.
--- NOTE | ~2024-12-08 | CT_ITS ---
EXAMINATION: CTA BRAIN/CAROTID DATE: 12/08/2024 11:16 INDICATION: Stuttering speech and left eye visual changes TECHNIQUE: Computed tomographic angiography (CTA) of the head and neck was performed with 100 mL Omni paque-350 intravenous contrast. Multiplanar reconstructions and maximum intensity projection 3D-recon structions of the carotid arteries and of the intracranial arteries were created by the technologist on a separate workstation. Automated exposure control and iterative reconstruction technique were emp loyed.The dose-length product was 1066.23 mGy-cm. COMPARISON: None. FINDINGS: Carotid arteries: Visualized aortic arch and great vessels arising from the arch are normal in caliber with no atherosc lerotic plaque or dissection. There is no evident atherosclerotic plaque with 0% stenosis of the righ t and left carotid bulbs relative to normal distal artery lumen diameter (NASCET criteria). Bilateral intracranial vertebral arteries appear codominant with no evident hemodynamically significant stenos is. Mild emphysema the visualized upper lungs. Cervical soft tissues are unremarkable. Mild cervical and mild to moderate upper thoracic spondylosis. Intracranial arteries The bilateral vertebral arteries are codominant but along the basilar artery are relatively small com pared with the internal carotid arteries.. There is no hemodynamically significant stenosis in the ve rtebral, basilar and internal carotid arteries. There are no aneurysms identified. Both A1 segments are patent. The posterior cerebral arteries are supplied by the bilateral internal carotid arteries v ia patent bilateral posterior communicating arteries. There is also a patent anterior communicating a rtery. Cerebral arterial arborization appears symmetric. No abnormally enhancing brain lesions. IMPRESSION: 1. No evident atherosclerotic plaque with 0% stenosis of the right and left carotid bulbs relative to normal distal artery lumen diameter (NASCET criteria). 2. 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 Otherwise unremarkable cerebral CT angiogram with no hemodynamic significant stenosis, thrombosis or aneurysm. Reviewed, dictated and finalized at location A. EL LUBE TECH IMPRESSION: 1. No evident atherosclerotic plaque with 0% stenosis of the right and left car otid bulbs relative to normal distal artery lumen diameter (NASCET criteria). 2. 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 Otherwise unremarkab le cerebral CT angiogram with no hemodynamic significant stenosis, thrombosis o r aneurysm.
--- NOTE | ~2024-12-08 | XR_ITS ---
EXAMINATION: XR chest 1V portable DATE: 12/08/2024 09:27 INDICATION: Chest pain. Weakness. TECHNIQUE: A single frontal view of the chest was obtained. COMPARISON: Chest 2 views 07/20/2022 FINDINGS: There are airspace opacities in left lower lung zone. No pleural effusion or pneumothorax. The heart size is normal. IMPRESSION: 1. Airspace opacities in left lower lung zone, consistent with atelectasis versus pneumonia. Reviewed, dictated and finalized at location A. E ROOM OPERATOR IMPRESSION: 1. Airspace opacities in left lower lung zone, consistent with atelectasis vers us pneumonia.
--- OUTSIDE RECORDS SUMMARY | 2024-12-08 07:50 | XMS_ITS | Clinical Summary ---
Author Organization [facility] Address [address] [place] [id number] Phone Care Team Providers Care Gallery Or Museum Technician Name Role Phone Jose Roberto Thao MD Primary Care Provider [phone] Allergies Active Allergy Reactions Criticality Noted Date Comments Codeine Anaphylaxis High 08/04/2009 Medications cetirizine (ZyrTEC) 10 mg tablet Take 10 mg by mouth daily. 05/21/2021 Active gabapentin (NEURONTIN) 100 mg capsule Take 100 mg by mouth daily. Active Active Problems No known active problems Family History Medical History Relation Name Comments Diabetes Father Heart Disease Father Prostate Cancer Father Heart Disease Mother Relation Name Status Comments Brother 1 Alive Brother 2 Alive Father Alive Mother Alive Sister Alive Son Alive Social History Tobacco Use Types Packs/Day Years Used Date Smoking Tobacco: Every Day Cigarettes Tobacco Cessation:Ready to Q uit: Not Asked; Counseling Given: Not Answered Alcohol Use Standard Drinks/Week Comments No 0 (1 standard drink = 0.6 oz pur e alcohol) Comments No Sex and Gender Information Value Date Recorded Sex Assigned at Not on file Legal Sex Female 5:47 AM FIBERGLASS BONDING MACHINE TENDER Gender Identity Not on file Sexual Orientation Not on file Last Filed Vital Signs Vital Sign Reading Time Taken Comments Blood Pressure 136/84 09/08/2023 3:38 PM FIBERGLASS BONDING MACHINE TENDER Pulse 81 09/08/2023 3:34 PM FIBERGLASS BONDING MACHINE TENDER Temperature 36.7 C (98 F) 09/08/2023 3:34 PM FIBERGLASS BONDING MACHINE TENDER Respiratory Rate 18 09/08/2023 3:34 PM FIBERGLASS BONDING MACHINE TENDER Oxygen Saturation 99% 09/08/2023 3:34 PM FIBERGLASS BONDING MACHINE TENDER Inhaled Oxygen Concentration - - Weight 98 kg (216 lb) 09/08/2023 3:34 PM FIBERGLASS BONDING MACHINE TENDER Height 154.9 cm (5' 1 ) 08/04/2009 5:53 PM CDT Body Mass Index - - Plan of Treatment Health Maintenance Due Date Last Done Comments PNEUMOCOCCAL VACCINE 0-64 YE ARS (1 of 2 - PCV) 1987 DTAP/TDAP/TD VACCINES (1 - Tdap) 2000 HEPATITIS B VACCINES (1 of 3 - 19+ 3-dose series) 2000 CERVICAL CANCER SCREENING 2011 BREAST CANCER SCREENING 2021 INFLUENZA VACCINE (#1) 2024 HPV VACCINES Aged Out No longer eligi ble based on patient's age to complete this topic Insurance Care Teams Gallery Or Museum Technician Relationship Specialty Start Date End Date Jose Roberto Thao MD [address] [place] [address] PCP - General 08/04/09
--- OUTSIDE RECORDS SUMMARY | 2024-12-08 07:51 | XMS_ITS | Clinical Summary ---
Author Organization [facility] Address [address] [place] [address] Phone Care Team Providers Care Glass Processing Worker Name Role Phone Jose Roberto Thao MD Primary Care Provider Allergies Active Allergy Reactions Criticality Noted Date Comments Codeine Anaphylaxis High 08/04/2009 Medications pravastatin (PRAVACHOL) 10 MG Tablet TK 1 T PO QD 3 08/10/2018 Active SERTRALINE HCL PO Take 10 mg by mouth daily. Active CETIRIZINE HCL PO Take by mouth daily. Active HYDROcodone-gene taminophen (NORCO) 5-325 MG TabletIndicatio ns:Carpal tunnel syndrome on left Take 1 Tablet by mouth every 6 hours as needed for Moderate or more severe pain. 13 Tablet 11/12/2021 Active Family History Medical History Relation Name Comments Cancer Father PROSTATE Diabetes Father Heart Attack Father Heart Surgery Father Heart Attack Mother Stroke Mother Relation Name Status Comments Father Alive Mother Alive Social History Tobacco Use Types Packs/Day Years Used Date Smoking Tobacco: Former Cigarettes Q uit: 11/08/2021 Smokeless Tobacco: Never Tobacco Cessation:Ready to Q uit: Yes; Counseling Given: No Comments:TRYING TO QUIT RIGHT NOW Alcohol Use Standard Drinks/Week Comments No 0 (1 standard drink = 0.6 oz pur e alcohol) Sexually Active Control Partners Comments Never Comments No Sex and Gender Information Value Date Recorded Sex Assigned at Not on file Legal Sex Female 8:49 PM CDT Gender Identity Not on file Sexual Orientation Not on file Last Filed Vital Signs Vital Sign Reading Time Taken Comments Blood Pressure 126/82 11/12/2021 10:15 AM COMMUNITY YOUTH SECRETARY Pulse 80 11/12/2021 10:15 AM COMMUNITY YOUTH SECRETARY Temperature 36.8 C (98.2 F) 11/12/2021 10:15 AM COMMUNITY YOUTH SECRETARY Respiratory Rate 16 11/12/2021 10:15 AM COMMUNITY YOUTH SECRETARY Oxygen Saturation 92% 11/12/2021 10:30 AM COMMUNITY YOUTH SECRETARY Inhaled Oxygen Concentration - - Weight 113.4 kg (250 lb) 11/12/2021 5:55 AM COMMUNITY YOUTH SECRETARY Height 152.4 cm (5') 11/12/2021 5:55 AM COMMUNITY YOUTH SECRETARY Body Mass Index 48.82 11/12/2021 5:55 AM COMMUNITY YOUTH SECRETARY Plan of Treatment Health Maintenance Due Date Last Done Comments Hepatitis C Virus (HCV) Screening 1981 TdaP Immunization 1981 Pap Smear 2002 Cervical Cancer Screening (CCS) 2011 HPV/Cotest 2011 Discussion re Starting/Frequency of Mammograms 2021 Influenza Immunization (#1) 2024 07/26/2020 SARS-COV-2 Immunization ( season) 2024 10/15/2021, 09/24/2021 Respiratory Syncytial Virus (RSV) Immunization (Adult) (1 - 1-dose 75+ series) 2056 DTaP/Tdap/Td Immunization Discontinued 1996, 06/14/1986, 09/14/1985, Additional history exists Hepatitis B Immunization Completed 999, 08/15/1998, 07/11/1998 Meningococcal Immunization (ACWY) Aged Out No longer eligible based on patient's age to complete this topic Pneumococcal Immunization Combined Aged Out No longer eligible based on patient's age to complete this topic Rotavirus Immunization Aged Out No lo nger eligible based on patient's age to complete this topic Insurance MEDICAID [employer] Care Teams Glass Processing Worker Relationship Specialty Start Date End Date Jose Roberto Thao MD [address] [address] PCP - General Family Medicine 05/21/18
--- OUTSIDE RECORDS SUMMARY | 2024-12-08 07:51 | XMS_ITS | Clinical Summary ---
Author Organization [facility] Address [address] [place] [address] Care Team Providers Care It Support Specialist Name Role Phone Jose Roberto Thao MD Primary Care Provider [phone] Allergies Active Allergy Reactions Criticality Noted Date Comments Codeine Anaphylaxis High 08/04/2009 Medications cetirizine (ZyrTEC) 10 mg tablet Take 10 mg by mouth daily 05/21/2021 Active fluconazole (DIFLUCAN) 150 mg tablet Take by mouth once 05/13/2021 Active FLUoxetine 10 mg capsule Take 10 mg by mouth daily 05/25/2021 Active pravastatin (PRAVACHOL) 10 mg tablet Take 10 mg by mouth daily 05/12/2021 Active Active Problems Problem Noted Date Diagnosed Date Carpal tunnel syndrome on left 10/30/2021 Overview (10/30/2021): Added automatically from request for surgery [id number] Cubital tunnel syndrome on left 10/30/2021 Overview (10/30/2021): Added automatically from request for surgery [id number] Surgical History Surgery Date Site/Laterality Comments OTHER SURGICAL HISTORY KANDACE: CPAP SECTION section KNEE SURGERY SHOULDER SURGERY CARPAL TUNNEL RELEASE Medical History Medical History Date Comments Hx Other Medical KANDACE Depression Depression Hypercholesteremia Kidney stone Family History Medical History Relation Name Comments Coronary artery disease Father Alexander nary artery disease; Diabetes type II Father Diabetes -T ype 2; Cancer Other Clotting disorder Other Diabetes Other Heart disease Other Hypertension Other Mental illness Other Stroke Other Diabetes Paternal Grandmother Diabete s mellitus; Relation Name Status Comments Father Other Paternal Grandmother Social History Tobacco Use Types Packs/Day Years Used Date Smoking Tobacco: Every Day Cigarettes Smokeless Tobacco: Never Comments Unknown Sex and Gender Information Value Date Recorded Sex Assigned at Not on file Legal Sex Female 10:18 AM SOUND CONTROLLER Gender Identity Not on file Sexual Orientation Not on file Obstetrics History Last Filed Vital Signs Vital Sign Reading Time Taken Comments Blood Pressure 132/82 11/26/2021 8:11 AM SOUND CONTROLLER Pulse 96 11/26/2021 8:11 AM SOUND CONTROLLER Temperature - - Respiratory Rate - - Oxygen Saturation - - Inhaled Oxygen Concentration - - Weight 111.1 kg (245 lb) 11/26/2021 8:11 AM SOUND CONTROLLER Height 152.4 cm (5') 11/26/2021 8:11 AM SOUND CONTROLLER Body Mass Index 47.85 11/26/2021 8:11 AM SOUND CONTROLLER Plan of Treatment Not on file Insurance Care Teams It Support Specialist Relationship Specialty Start Date End Date Jose Roberto Thao MD PCP - General 03/03/12
--- OUTSIDE RECORDS SUMMARY | 2024-12-08 07:51 | XMS_ITS | Encounter Summary ---
Author Organization [facility] Address [address] [place] [address] Phone Care Team Providers Care Investigation Manager Name Role Phone Jose Roberto Thao MD Primary Care Provider [phone] Reason for Referral * Radiology Services (Routine) - Closed Specialty Diagnoses / Procedures Referred By Contac t Referred To Contact Radiology Diagnoses Pre-op testing Procedures XR CHEST 2 VIEWS Mulugeta Moya MD Phone: tel: fax: Referral ID Status Reason Start Date Expiration Date Visits Re quested Visits Authorized [id number] Closed 11/08/2021 1 1 IER ASSOCIATE * Radiology Services (Routine) - Closed Specialty Diagnoses / Procedures Referred By Contac t Referred To Contact Radiology Diagnoses Pre-op testing Procedures EKG 12 LEAD Mulugeta Moya MD Phone: tel: fax: Referral ID Status Reason Start Date Expiration Date Visits Re quested Visits Authorized [id number] Closed 11/08/2021 1 1 IER ASSOCIATE Encounter Details Date Type Department Care Team (Late st Contact Info) Description 11/08/2021 Transcribe Orders [facility] Preop/Pacu II [address] [place] [address] Mulugeta Moya MD [address] [place] [address], [address] [place] [address] Pre-op testing (Primary Dx) Social History Tobacco Use Types Packs/Day Years Used Date Smoking Tobacco: Every Day Cigarettes Smokeless Tobacco: Never Comments:TRYING TO QUIT RIGH T NOW Alcohol Use Standard Drinks/Week Comments No 0 (1 standard drink = 0.6 oz pur e alcohol) Sexually Active Control Partners Comments Never Comments No Sex and Gender Information Value Date Recorded Sex Assigned at Not on file Legal Sex Female 8:49 PM CDT Gender Identity Not on file Sexual Orientation Not on file COVID-19 Exposure Response Date Recorded In the last month, have you been in contact with someone who was confirmed or suspected to have Coronavirus / COVID-19? No / Unsure 11/11/2021 7:50 AM CARRIER ASSOCIATE documented as of this encounter Plan of Treatment Not on file documented as of this encounter Results * XR CHEST 2 VIEWS (11/11/2021 8:46 AM CARRIER ASSOCIATE) Anatomical Region Laterality Modality Chest N/A Digital Radiogra phy 11/11/2021 8:53 AM CARRIER ASSOCIATE Impressions 11/11/2021 8:55 AM CARRIER ASSOCIATE IMPRESSION: 1. Mild patchy bibasilar airspace opacities, which is likely related to subsegmental atelectasis. No definite evidence of focal consolidation. Narrative 11/11/2021 8:55 AM CARRIER ASSOCIATE EXAM DESCRIPTION: XR CHEST 2 VIEWS REASON FOR STUDY: Encounter for other preprocedural examination . Preoperative evaluation for left hand and carpal tunnel surgery on 11/12/2021. No chest complaints. History of smoking. TECHNIQUE: Frontal and lateral radiographic views of the chest acquired. COMPARISON: None FINDINGS: The heart, mediastinum, and pulmonary vasculature are grossly unremarkable. There is no definite evidence of a pneumothorax. There is no definite evidence of a focal consolidation or pleural effusion. There are mild patchy bibasilar airspace opacities. There is a minimal to mild dextroscoliotic curvature of the spine with mild degenerative changes. THIS IS AN ELECTRONICALLY VERIFIED FINAL REPORT 11/11/2021 8:53 AM - Electronically signed by Mathieu Kahn D.O. PS: PS Report ID: [id number] Reading Location: [id number] Procedure Note Mathieu Kahn DO - 11/11/2021 EXAM DESCRIPTION: XR CHEST 2 VIEWS REASON FOR STUDY: Encounter for other preprocedural examination . Preoperative evaluation for left hand and carpal tunnel surgery on 11/12/2021. No chest complaints. History of smoking. TECHNIQUE: Frontal and lateral radiographic views of the chest acquired. COMPARISON: None FINDINGS: The heart, mediastinum, and pulmonary vasculature are grossly unremarkable. There is no definite evidence of a pneumothorax. There is no definite evidence of a focal consolidation or pleural effusion. There are mild patchy bibasilar airspace opacities. There is a minimal to mild dextroscoliotic curvature of the spine with mild degenerative changes. THIS IS AN ELECTRONICALLY VERIFIED FINAL REPORT 11/11/2021 8:53 AM - Electronically signed by Mathieu Kahn D.O. PS: PS Report ID: [id number] Reading Location: [id number] IMPRESSION: 1. Mild patchy bibasilar airspace opacities, which is likely related to subsegmental atelectasis. No definite evidence of focal consolidation. Mulugeta Moya MD IMG DIAGNOSTIC ORDERABL ES Final Result * EKG 12 LEAD (11/11/2021 8:17 AM CARRIER ASSOCIATE) Ventricular Rate BPM EXTERNAL EKG Atrial Rate BPM EXTERNAL EKG P-R Interval 138 ms EXTERNAL EKG QRS Duration 78 ms EXTERNAL EKG Q-T Duration 382 ms EXTERNAL EKG QTC CALCULATION 441 ms EXTERNAL EKG P [place] 50 degrees EXTERNAL EKG R [place] 67 degrees EXTERNAL EKG T [place] 32 degrees EXTERNAL EKG 11/11/2021 8:17 AM CARRIER ASSOCIATE Impressions EXTERNAL EKG - 11/12/2021 9:35 AM CARRIER ASSOCIATE Sinus rhythm Low QRS voltages in precordial leads Comparison Summary: No serial comparison made Summary: Borderline ECG Confirmed by Dereje Og [id number] on 11/12/2021 9:35:35 AM Narrative Procedure Note Janet Reyez MD - 11/12/2021 IMPRESSION: Sinus rhythm Low QRS voltages in precordial leads Comparison Summary: No serial comparison made Summary: Borderline ECG Confirmed by Dereje Og [id number] on 11/12/2021 9:35:35 AM us Mulugeta Moya MD IMG ECG ORDERABLES [facility] [employer] Result EXTERNAL EKG * SARS-COV-2 BY MOLECULAR (11/11/2021 8:09 AM CARRIER ASSOCIATE) SARSCOV2 NOT DETECTED (Referen ce Range for this test is Not Detected ) [facility] THERMOFISHER FAST DX 11/12/2021 7:47 AM CARRIER ASSOCIATE [facility] Comment:This test was perfor med by a RT-PCR method. Other NASOPHARYNGEAL STRUCTURE / Unknown Non-Phlebotomy Collection / Unknown 11/11/2021 8:09 AM CARRIER ASSOCIATE 11/11/2021 8:11 AM CARRIER ASSOCIATE Narrative [facility] - 11/12/2021 7:47 AM CARRIER ASSOCIATE Authorized Fact Sheets about this test for providers and patients are available at: https://www.fda.gov/medical-devices/ylkyskeyc-mnwpcndduz-sxspzuy-devices/emergen -us e-authorizations us Cristino Ha MD MICROBIOLOGY - GENERAL ORDERA BLES Final Result [facility] [address] [place] [address], [place] * HEMOGLOBIN & HEMATOCRIT (H&H) (11/11/2021 8:09 AM CARRIER ASSOCIATE) HEMOGLOBIN (HGB) 12.5 12.0 - 15.8 g/dL 11/11/2021 8:28 AM CARRIER ASSOCIATE [facility] HEMATOCRIT (HCT) 39.6 36.0 - 47.0 % 11/11/2021 8:28 AM CARRIER ASSOCIATE [facility] Blood Venipuncture / Unknown 11/11/2021 8:09 AM CARRIER ASSOCIATE 11/11/2021 8:13 AM CARRIER ASSOCIATE us Cristino Ha MD HEMATOLOGY ORDERABLES Final R esult [facility] [address] [place] [address] documented in this encounter Visit Diagnoses Diagnosis Pre-op testing- Primary Preoperative examination, unspecified Pre-op testing Preoperative examination, unspecified Pre-op testing Preoperative examination, unspecified documented in this encounter Care Teams Investigation Manager Relationship Specialty Start Date End Date Jose Roberto Thao MD [address] [place] [address] PCP - General Family Medicine 05/21/18 documented as of this encounter
--- OUTSIDE RECORDS SUMMARY | 2024-12-08 07:51 | XMS_ITS | Referral Summary ---
Author Organization [facility] Building [facility] Address [address] [place] [address] Care Team Providers Care Sccm Administrator Name Role Phone Jose Roberto Thao MD Primary Care Provider [phone] Allergies Active Allergy Reactions Criticality Noted Date [...] (10/30/2021): Added automatically from request for surgery [id number] Cubital tunnel syndrome on left 10/30/2021 Overview (10/30/2021): Added automatically from request for surgery [id number] Social History Tobacco Use Types Packs/Day Years Used Date Smoking Tobacco: Every Day Cigarettes Smokeless Tobacco: Never Comments Unknown Sex and Gender Information Value Date Recorded Sex Assigned at Not on file Legal Sex Female 10:18 AM CASE RESOLUTION SPECIALIST Gender Identity Not on file Sexual Orientation Not on file Last Filed Vital Signs Vital Sign Reading Time Taken Comments Blood Pressure 132/82 11/26/2021 8:11 AM CASE RESOLUTION SPECIALIST Pulse 96 11/26/2021 8:11 AM CASE RESOLUTION SPECIALIST Temperature - - Respiratory Rate - - Oxygen Saturation - - Inhaled Oxygen Concentration - - Weight 111.1 kg (245 lb) 11/26/2021 8:11 AM CASE RESOLUTION SPECIALIST Height 152.4 cm (5') 11/26/2021 8:11 AM CASE RESOLUTION SPECIALIST Body Mass Index 47.85 11/26/2021 8:11 AM CASE RESOLUTION SPECIALIST Plan of Treatment Not on file Insurance Care Teams Sccm Administrator Relationship Specialty Start Date End Date Jose Roberto Thao MD PCP - General 03/03/12
--- NOTE | 2024-12-08 09:06 | ECG_ITS ---
Test Date: 2024-12-08 09:15:13 Measurements Intervals [place] Rate: 74 P: 39 [place]: 134 QRS: 55 QRSD: 81 T: 38 QT: 356 QTc: 396 Interpretive Statements SINUS RHYTHM POSSIBLE RIGHT VENTRICULAR CONDUCTION DELAY BASELINE ARTIFACT- I, II, III, AVR, AVL, AVF BORDERLINE ECG No previous ECG available for comparison Electronically Signed On 12-08-2024 09:24:28 REGISTRATION CLERK by Micha Waldron D.O.
[2024-12-08 09:26] LABS: Glucose Point of Care 112 mg/dl (65-105)
[2024-12-08 09:29] LABS: Basophils Percent Auto 0.4 % (0.2-1.2); Eosinophils Absolute Auto 0.1 K/mm3 (0-0.3); Eosinophils Percent Auto 0.9 % (0-4.4); Hematocrit 42.1 % (37.0-47.0); Hemoglobin 13.6 g/dL (12.0-15.0); Immature Granulocyte Absolute 0.04 K/mm3 (0.00-0.031); Immature Granulocyte Percent A 0.4 % (0-0.5); Lymphocytes Absolute Auto 2.36 K/mm3 (0.9-3.2); Lymphocytes Percent Auto 23.6 % (18.3-44.2); Mean Corpuscular HGB Conc 32.3 g/dl (32-36); Mean Corpuscular Hemoglobin 26.6 pg (26-34); Mean Corpuscular Volume 82.4 fl (80-100); Mean Platelet Volume 9.4 fl (7.4-10.4); Monocytes Absolute Auto 0.5 K/mm3 (0.1-0.6); Neutrophils Percent Auto 69.7 % (45.5-73.1); Platelet Count Result 383 k/mm3 (150-375); Red Blood Count 5.11 M/mm3 (4.2-5.4); Red Cell Distribution Width 14.2 % (11.5-14.5)
[2024-12-08 09:38] LABS: Prothrombin Time 13.9 Seconds (11.1-14.7)
[2024-12-08 09:39] LABS: Partial Thromboplastin Time 27.3 Seconds (22.3-36.8)
[2024-12-08 09:42] LABS: Alanine Aminotransferase 18 U/L (6-35); Albumin Level 4.1 g/dL (3.5-5.1); Alkaline Phosphatase 70 U/L (38-126); Anion Gap 8 mmol/L (4-12); Aspartate Amino Transferase 19 U/L (14-36); Bilirubin,Total 0.6 mg/dL (0.2-1.3); Blood Urea Nitrogen 12 mg/dL (7-17); Calcium 9.6 mg/dL (8.4-10.2); Carbon Dioxide 23 mmol/L (22-30); Chloride 105 mmol/L (98-107); Estimated Glomerular Filt Rate > 60; Glucose 98 mg/dL (65-110); Potassium 4.3 mmol/L (3.4-5.0); Sodium 136 mmol/L (137-145)
[2024-12-08 09:53] LABS: Troponin I < 0.012 ng/mL (0.000-0.034)
--- OUTSIDE RECORDS SUMMARY | 2024-12-08 11:40 | XMS_ITS | Clinical Summary ---
Author Organization [facility] Building B Address [address] [place] [address] Care Team Providers Care Geomagnetist Name Role Phone Jose Roberto Thao MD Primary Care Provider [phone] Allergies Active Allergy Reactions Criticality Noted Date [...] (10/30/2021): Added automatically from request for surgery [id number] Cubital tunnel syndrome on left 10/30/2021 Overview (10/30/2021): Added automatically from request for surgery [id number] Surgical History Surgery Date Site/Laterality Comments OTHER [...] on file Legal Sex Female 10:18 AM WEB EDITOR Gender Identity Not on file Sexual Orientation Not on file Obstetrics History Last Filed Vital Signs Vital Sign Reading Time Taken Comments Blood Pressure 132/82 11/26/2021 8:11 AM WEB EDITOR Pulse 96 11/26/2021 8:11 AM WEB EDITOR Temperature - - Respiratory Rate - - Oxygen Saturation - - Inhaled Oxygen Concentration - - Weight 111.1 kg (245 lb) 11/26/2021 8:11 AM WEB EDITOR Height 152.4 cm (5') 11/26/2021 8:11 AM WEB EDITOR Body Mass Index 47.85 11/26/2021 8:11 AM WEB EDITOR Plan of Treatment Not on file Insurance Care Teams Geomagnetist Relationship Specialty Start Date End Date Jose Roberto Thao MD PCP - General 03/03/12
--- OUTSIDE RECORDS SUMMARY | 2024-12-08 11:40 | XMS_ITS | Clinical Summary ---
Author Organization [facility] Address [address] [place] [address] Phone Care Team Providers Care Computer Engineering Professor Name Role Phone Jose Roberto Thao MD Primary Care Provider [phone] Allergies Active Allergy Reactions Criticality Noted Date [...] on file Legal Sex Female 5:47 AM AUTOMOTIVE SERVICE CASHIER Gender Identity Not on file Sexual Orientation Not on file Last Filed Vital Signs Vital Sign Reading Time Taken Comments Blood Pressure 136/84 09/08/2023 3:38 PM AUTOMOTIVE SERVICE CASHIER Pulse 81 09/08/2023 3:34 PM AUTOMOTIVE SERVICE CASHIER Temperature 36.7 C (98 F) 09/08/2023 3:34 PM AUTOMOTIVE SERVICE CASHIER Respiratory Rate 18 09/08/2023 3:34 PM AUTOMOTIVE SERVICE CASHIER Oxygen Saturation 99% 09/08/2023 3:34 PM AUTOMOTIVE SERVICE CASHIER Inhaled Oxygen Concentration - - Weight 98 kg (216 lb) 09/08/2023 3:34 PM AUTOMOTIVE SERVICE CASHIER Height 154.9 cm (5' 1 ) 08/04/2009 [...] to complete this topic Insurance Care Teams Computer Engineering Professor Relationship Specialty Start Date End Date Jose Roberto Thao MD [address] [place] [address] PCP - General 08/04/09
--- OUTSIDE RECORDS SUMMARY | 2024-12-08 11:40 | XMS_ITS | Encounter Summary ---
Author Organization [facility] Address [address] [place] [address] Phone Care Team Providers Care Basket Patcher Name Role Phone Jose Roberto Thao MD Primary Care Provider [phone] Reason for Referral * Radiology Services (Routine) - Closed Specialty Diagnoses / Procedures Referred By Contac t Referred To Contact Radiology Diagnoses Pre-op testing Procedures XR CHEST 2 VIEWS Mulugeta Moya MD Phone: tel: fax: Referral ID Status Reason Start Date Expiration Date Visits Re quested Visits Authorized [id number] Closed 11/08/2021 1 1 FORMING MACHINE SET UP MECHANIC * Radiology Services (Routine) - Closed Specialty Diagnoses / Procedures Referred By Contac t Referred To Contact Radiology Diagnoses Pre-op testing Procedures EKG 12 LEAD Mulugeta Moya MD Phone: tel: fax: Referral ID Status Reason Start Date Expiration Date Visits Re quested Visits Authorized [id number] Closed 11/08/2021 1 1 FORMING MACHINE SET UP MECHANIC Encounter Details Date Type Department Care Team (Late st Contact Info) Description 11/08/2021 Transcribe Orders [facility] Preop/Pacu II 1 [facility] [place] [address] Mulugeta Moya MD [address] [place] [address], [address] [place] [address] Pre-op testing (Primary Dx) Social History Tobacco [...] COVID-19? No / Unsure 11/11/2021 7:50 AM ROLL FORMING MACHINE SET UP MECHANIC documented as of this encounter Plan of Treatment Not on file documented as of this encounter Results * XR CHEST 2 VIEWS (11/11/2021 8:46 AM ROLL FORMING MACHINE SET UP MECHANIC) Anatomical Region Laterality Modality Chest N/A Digital Radiogra phy 11/11/2021 8:53 AM ROLL FORMING MACHINE SET UP MECHANIC Impressions 11/11/2021 8:55 AM ROLL FORMING MACHINE SET UP MECHANIC IMPRESSION: 1. Mild patchy bibasilar airspace opacities, which is likely related to subsegmental atelectasis. No definite evidence of focal consolidation. Narrative 11/11/2021 8:55 AM ROLL FORMING MACHINE SET UP MECHANIC EXAM DESCRIPTION: XR CHEST 2 VIEWS REASON [...] Mathieu Kahn D.O. PS: PS Report ID: [id number] Reading Location: [id number] Procedure Note Mathieu Kahn DO - 11/11/2021 [...] Mathieu Kahn D.O. PS: PS Report ID: [id number] Reading Location: [id number] IMPRESSION: 1. Mild patchy bibasilar airspace opacities, which is likely related to subsegmental atelectasis. No definite evidence of focal consolidation. Mulugeta Moya MD IMG DIAGNOSTIC ORDERABL ES Final Result * EKG 12 LEAD (11/11/2021 8:17 AM ROLL FORMING MACHINE SET UP MECHANIC) Ventricular Rate BPM EXTERNAL EKG Atrial Rate BPM EXTERNAL EKG P-R Interval 138 ms EXTERNAL EKG QRS Duration 78 ms EXTERNAL EKG Q-T Duration 382 ms EXTERNAL EKG QTC CALCULATION 441 ms EXTERNAL EKG P [place] 50 degrees EXTERNAL EKG R [place] 67 degrees EXTERNAL EKG T [place] 32 degrees EXTERNAL EKG 11/11/2021 8:17 AM ROLL FORMING MACHINE SET UP MECHANIC Impressions EXTERNAL EKG - 11/12/2021 9:35 AM ROLL FORMING MACHINE SET UP MECHANIC Sinus rhythm Low QRS voltages in precordial leads Comparison Summary: No serial comparison made Summary: Borderline ECG Confirmed by Dereje Og [id number] on 11/12/2021 9:35:35 AM Narrative Procedure Note Janet Reyez MD - 11/12/2021 IMPRESSION: Sinus rhythm Low QRS voltages in precordial leads Comparison Summary: No serial comparison made Summary: Borderline ECG Confirmed by Dereje Og [id number] on 11/12/2021 9:35:35 AM us Mulugeta Moya MD IMG ECG ORDERABLES [facility] Result EXTERNAL EKG * SARS-COV-2 BY MOLECULAR (11/11/2021 8:09 AM ROLL FORMING MACHINE SET UP MECHANIC) SARSCOV2 NOT DETECTED (Referen ce Range for this test is Not Detected ) [facility] THERMOFISHER FAST DX 11/12/2021 7:47 AM ROLL FORMING MACHINE SET UP MECHANIC [facility] Comment:This test was perfor med by a RT-PCR method. Other NASOPHARYNGEAL STRUCTURE / Unknown Non-Phlebotomy Collection / Unknown 11/11/2021 8:09 AM ROLL FORMING MACHINE SET UP MECHANIC 11/11/2021 8:11 AM ROLL FORMING MACHINE SET UP MECHANIC Narrative [facility] - 11/12/2021 7:47 AM ROLL FORMING MACHINE SET UP MECHANIC Authorized Fact Sheets about this test for providers and patients are available at: https://www.fda.gov/medical-devices/xmfupwlrm-dsgyndgebn-xafkwnd-devices/emergen -us e-authorizations us Cristino Ha MD MICROBIOLOGY - GENERAL ORDERA BLES Final Result [facility] [address] [place] [address], [place] * HEMOGLOBIN & HEMATOCRIT (H&H) (11/11/2021 8:09 AM ROLL FORMING MACHINE SET UP MECHANIC) HEMOGLOBIN (HGB) 12.5 12.0 - 15.8 g/dL 11/11/2021 8:28 AM ROLL FORMING MACHINE SET UP MECHANIC [facility] HEMATOCRIT (HCT) 39.6 36.0 - 47.0 % 11/11/2021 8:28 AM ROLL FORMING MACHINE SET UP MECHANIC [facility] Blood Venipuncture / Unknown 11/11/2021 8:09 AM ROLL FORMING MACHINE SET UP MECHANIC 11/11/2021 8:13 AM ROLL FORMING MACHINE SET UP MECHANIC us Cristino Ha MD HEMATOLOGY ORDERABLES Final R esult [facility] [address] [place] [address] documented in this encounter Visit Diagnoses Diagnosis Pre-op testing- Primary Preoperative examination, unspecified Pre-op testing Preoperative examination, unspecified Pre-op testing Preoperative examination, unspecified documented in this encounter Care Teams Basket Patcher Relationship Specialty Start Date End Date Jose Roberto Thao MD [address] [address] PCP - General Family Medicine 05/21/18 documented as of this encounter
--- OUTSIDE RECORDS SUMMARY | 2024-12-08 11:40 | XMS_ITS | Referral Summary ---
Author Organization [facility] Building [facility] Address [address] [place] [address] Care Team Providers Care Barrel Straightener Name Role Phone Jose Roberto Thao MD [...] (10/30/2021): Added automatically from request for surgery [id number] Cubital tunnel syndrome on left 10/30/2021 Overview (10/30/2021): Added automatically from request for surgery [id number] Social History Tobacco Use Types Packs/Day Years Used Date Smoking Tobacco: Every Day Cigarettes Smokeless Tobacco: Never Comments Unknown Sex and Gender Information Value Date Recorded Sex Assigned at Not on file Legal Sex Female 10:18 AM VISUAL EDUCATION TEACHER Gender Identity Not on file Sexual Orientation Not on file Last Filed Vital Signs Vital Sign Reading Time Taken Comments Blood Pressure 132/82 11/26/2021 8:11 AM VISUAL EDUCATION TEACHER Pulse 96 11/26/2021 8:11 AM VISUAL EDUCATION TEACHER Temperature - - Respiratory Rate - - Oxygen Saturation - - Inhaled Oxygen Concentration - - Weight 111.1 kg (245 lb) 11/26/2021 8:11 AM VISUAL EDUCATION TEACHER Height 152.4 cm (5') 11/26/2021 8:11 AM VISUAL EDUCATION TEACHER Body Mass Index 47.85 11/26/2021 8:11 AM VISUAL EDUCATION TEACHER Plan of Treatment Not on file Insurance Care Teams Barrel Straightener Relationship Specialty Start Date End Date Jose Roberto Thao MD PCP - General 03/03/12
--- OUTSIDE RECORDS SUMMARY | 2024-12-08 11:40 | XMS_ITS | Clinical Summary ---
Author Organization [facility] Address [address] [place] [address] Phone Care Team Providers Care Early Childhood Specialist Name Role Phone Jose Roberto Thao MD Primary Care Provider [phone] Allergies Active Allergy Reactions Criticality Noted Date [...] Comments Blood Pressure 126/82 11/12/2021 10:15 AM HAND GLASS CUTTER Pulse 80 11/12/2021 10:15 AM HAND GLASS CUTTER Temperature 36.8 C (98.2 F) 11/12/2021 10:15 AM HAND GLASS CUTTER Respiratory Rate 16 11/12/2021 10:15 AM HAND GLASS CUTTER Oxygen Saturation 92% 11/12/2021 10:30 AM HAND GLASS CUTTER Inhaled Oxygen Concentration - - Weight 113.4 kg (250 lb) 11/12/2021 5:55 AM HAND GLASS CUTTER Height 152.4 cm (5') 11/12/2021 5:55 AM HAND GLASS CUTTER Body Mass Index 48.82 11/12/2021 5:55 AM HAND GLASS CUTTER Plan of Treatment Health Maintenance Due Date [...] Insurance MEDICAID [employer] Care Teams Early Childhood Specialist Relationship Specialty Start Date End Date Jose Roberto Thao MD [address] [address] PCP - General Family Medicine 05/21/18
--- NOTE | 2024-12-08 13:06 | ED_ITS ---
HPI - General Adult General Chief complaint: Neuro Symptoms/Deficit Stated complaint: weakness, twitchy, L eye blurred Time Seen by Provider: 12/08/24 09:42 History of Present Illness HPI narrative: Patient is a 44-year-old female presents emergency department with chief complaint of generalized weakness blurry vision chest wall pain and stuttered speech. Patient reports symptoms started sometime after she went to sleep at 9:00 p.m. yesterday the patient states her symptoms have been gradually improving since she came to the emergency department now resolved. Related Data Home Medications ?Medication ?Instructions ?Recorded ?Confirmed ?Last Taken ?Type cyclobenzaprine 10 mg tablet 10 mg PO TID PRN 08/23/24 08/23/24 Unknown History methylprednisolone 4 mg tablets in See Rx Instructions PO PER PKG DIR 08/23/24 08/23/24 Unknown History a dose pack (Medrol (Jeffery)) Allergies Allergy/AdvReac Type Severity Reaction Status Date / Time codeine Allergy Unknown Difficulty Verified 12/08/24 07:56 Breathing azithromycin AdvReac Intermediate Palpitation Verified 12/08/24 07:56 s Review of Systems 2 Review of Systems: A 10 system review of systems was completed on the patient and is negative except for what is stated in the HPI. Nursing and ancillary documentation was reviewed. 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 Wrist pain, right URI (upper respiratory infection) BMI greater than 40 Adult BMI 45.0-49.9 kg/sq m BMI 50.0-59.9, adult Bone spur Morbid (severe) obesity due to excess calories Diverticulitis of intestine without perforation or abscess Surgical History Surgical History H/O eye surgery H/O knee surgery History of carpal tunnel surgery History of rotator cuff surgery Family History Family History Father Hypertension Family history of diabetes mellitus in first degree relative Acute myocardial infarction Pancreatitis Mother Acute myocardial infarction Cerebrovascular accident Sibling Hypertension Ovarian cyst COVID-19 Other Diabetes mellitus Family history of alcoholism Family history of malignant neoplasm Social History Social History Smoking packs per day: 0.5 Smoking cigarettes per day: 10.0 Years smoked: 16 Smoking pack-years: 8.00 Smoking status: Current every day smoker Tobacco type: cigarettes Second hand tobacco smoke exposure: No Alcohol intake: never Substance use: never Substance use type: does not use Lack of Transportation: No Lack of Food: Never True Current Housing: I Have Housing Concerned About Future Housing: No Difficulty Paying Gas/Electric Bills: No Difficulty Paying for Meds: No Currently Unemployed: No Education: High School Diploma/GED Difficulty w/ Childcare or Family Care: No Living arrangements: with family Occupation/Education: occupation Additional occupation/education comments: [employer] Gender identity (if verbalized by the patient): Female Exam 2 Narrative: GENERAL: Well-appearing, well-nourished, and in no acute distress. HEAD: Normocephalic, atraumatic. EYES: PERRLA and EOMI. ENT: Nares clear, no rhinorrhea or epistaxis. Mucous membranes moist. NECK: Supple. CHEST: Clear to auscultation. No respiratory distress. HEART: Regular rate and rhythm. No murmur heard. Normal peripheral pulses. ABDOMEN: Soft, nontender, nondistended, normal active bowel sounds. EXTREMITIES: Normal range of motion. No edema. SKIN: Warm, dry, no rash. NEURO: No focal deficits. Alert and oriented x3. PSYCH: Normal mood and affect. Course Vital Signs Vital signs: Vital Signs Temperature 36.5 C 12/08/24 07:57 Pulse Rate 82 12/08/24 07:57 Respiratory Rate 20 12/08/24 07:57 Blood Pressure 129/71 12/08/24 07:57 Pulse Oximetry 98 12/08/24 07:57 Oxygen Delivery Room Air 12/08/24 07:57 Temperature 36.5 C 12/08/24 07:57 Pulse Rate 74 12/08/24 11:01 Respiratory Rate 20 12/08/24 11:01 Blood Pressure 117/72 12/08/24 11:01 Pulse Oximetry 97 12/08/24 11:01 Oxygen Delivery Room Air 12/08/24 07:57 Medical Decision Making [facility] Narrative Medical decision making narrative: Differential diagnosis includes TIA, CVA, atypical chest pain, Troponin was negative EKG showed no acute ischemic changes laboratory studies were within normal limits Chest x-ray showed atelectasis CTA head and CT head showed no acute abnormality The patient was offered admission for further workup the patient states she is feeling well at this time and did not want to stay in the hospital and preferred to do an outpatient workup the patient was instructed to take a daily aspirin Vital Signs Vital Signs: Vital Signs Temperature 36.5 C 12/08/24 07:57 Pulse Rate 82 12/08/24 07:57 Respiratory Rate 20 12/08/24 07:57 Blood Pressure 129/71 12/08/24 07:57 Pulse Oximetry 98 12/08/24 07:57 Oxygen Delivery Room Air 12/08/24 07:57 Temperature 36.5 C 12/08/24 07:57 Pulse Rate 74 12/08/24 11:01 Respiratory Rate 20 12/08/24 11:01 Blood Pressure 117/72 12/08/24 11:01 Pulse Oximetry 97 12/08/24 11:01 Oxygen Delivery Room Air 12/08/24 07:57 Lab Data 12/08/24 09:15 12/08/24 09:15 Labs: Lab Results 12/08/24 12/08/24 Range/Units 09:10 09:15 WBC 10.0 (4.5-10.0) K/mm3 RBC 5.11 (4.2-5.4) M/mm3 Hgb 13.6 (12.0-15.0) g/dL Hct 42.1 (37.0-47.0) % MCV 82.4 (80-100) fl MCH 26.6 (26-34) pg MCHC 32.3 (32-36) g/dl RDW 14.2 (11.5-14.5) % Plt Count 383 H (150-375) k/mm3 MPV 9.4 (7.4-10.4) fl Immature Gran % (Auto) 0.4 (0-0.5) % Neut % (Auto) 69.7 (45.5-73.1) % Lymph % (Auto) 23.6 (18.3-44.2) % [place] % (Auto) 5.0 (2.6-8.5) % Eos % (Auto) 0.9 (0-4.4) % Baso % (Auto) 0.4 (0.2-1.2) % Lymph # (Auto) 2.36 (0.9-3.2) K/mm3 [place] # (Auto) 0.5 (0.1-0.6) K/mm3 Eos # (Auto) 0.1 (0-0.3) K/mm3 Baso # (Auto) 0.0 (0.0-0.1) K/mm3 Abs Immat Gran (auto) 0.04 H (0.00-0.031) K/mm3 Absolute Neuts (auto) 7.0 H (1.3-6.7) K/mm3 Absolute Nucleated RBC 0.000 (0.0-0.012) K/mm3 Nucleated RBC % 0.0 (0.0-0.2) % PT 13.9 (11.1-14.7) Seconds INR 1.0 APTT 27.3 (22.3-36.8) Seconds Sodium 136 L (137-145) mmol/L Potassium 4.3 (3.4-5.0) mmol/L Chloride 105 (98-107) mmol/L Carbon Dioxide 23 (22-30) mmol/L Anion Gap 8 (4-12) mmol/L BUN 12 (7-17) mg/dL Creatinine 0.56 L (0.7-1.0) mg/dL Estim Creat Clear Calc Not Reportable Estimated GFR > 60 (59 - ) Glucose 98 (65-110) mg/dL POC Capillary Glucose 112 H (65-105) mg/dl Calcium 9.6 (8.4-10.2) mg/dL Total Bilirubin 0.6 (0.2-1.3) mg/dL AST 19 (14-36) U/L ALT 18 (6-35) U/L Alkaline Phosphatase 70 (38-126) U/L Troponin I < 0.012 (0.000-0.034) ng/mL Total Protein 8.0 (6.3-8.2) g/dL Albumin 4.1 (3.5-5.1) g/dL Discharge Plan Discharge Clinical Impression: Brain TIA, Atypical chest pain Patient Disposition: Home, Self-Care Condition: Stable Instructions: Antibiotic Form, Transient Ischemic Attack (ED), Chest Pain (ED) Additional Instructions: It is recommended he take a baby aspirin daily. Please follow-up with your primary care provider as soon as possible for further workup. If you develop symptoms again please return to the emergency department media Patient Language: Syriac Prescriptions: No Action methylprednisolone [Medrol (Jeffery)] 4 mg tablets,dose pack See Rx Instructions PO PER PKG DIR Rx Instructions: PO PER PKG DIR cyclobenzaprine 10 mg tablet 10 mg PO TID PRN albuterol sulfate 90 mcg/actuation HFA aerosol inhaler 1 puff inhalation Q4H PRN (Reason: shortness of breath or wheezing) 30 Days Qty: 8.5 3RF loratadine [Claritin] 10 mg tablet 10 mg PO DAILY Qty: 90 1RF fluconazole 150 mg tablet 150 mg PO ONCE Qty: 2 0RF Rx Instructions: Take 1 tablet by mouth once. If symptoms persist past 72 hrs, take 1 additional tablet gabapentin 100 mg capsule 100 mg PO QHS Qty: 30 2RF Rx Instructions: may increase to 300mg after 3-5 days if needed benzonatate 100 mg capsule 100 mg PO TID PRN (Reason: cough) Qty: 30 0RF Follow-up/Referrals: Jose Roberto Thao MD [Primary Care Provider] - Time of Disposition: 13:10
== END 2024-12-08 13:33 | disposition home or self-care (01) ==
PROVIDERS: Emergency Provider Emergency Medicine; PCP Family Medicine
DX: G45.9 Transient cerebral ischemic attack, unspecified (principal); R07.89 Other chest pain; E66.01 Morbid (severe) obesity due to excess calories; F17.210 Nicotine dependence, cigarettes, uncomplicated; R94.31 Abnormal electrocardiogram [ECG] [EKG]
CPT/HCPCS: 36415; 70450; 70496; 70498; 71045; 80053; 82948; 84484; 85025; 85610; 85730; 93005; 99284; Q9967

== ENCOUNTER 2025-02-03 11:09 | Emergency (ER) | payer OTHER, SELFPAY ==
[2025-02-03] VITALS (18 sets, daily range): BP systolic 120–140; BP diastolic 70–91; PULSE 75–94; RESP 14–20; TEMP 36.2; O2SAT 95–99
--- NOTE | ~2025-02-03 | CT_ITS ---
Non-contrast Head CT History: Headache COMPARISON: 12/08/2024 Technique: Axial non-contrast imaging of the brain was performed. Dose reduction technique was used on this scan by utilizing automated exposure control and iterative reconstruction technique. The dose -length product (DLP) was 605.33 mGy-cm. Findings: There is no evidence of intracranial hemorrhage, mass lesion, or acute infarct. Brain par enchyma appears normal. The ventricles and subarachnoid spaces are normal in size. The calvarium ap pears normal. The visualized paranasal sinuses and mastoid air cells are clear. Impression: No significant abnormality seen. Reviewed, dictated and finalized at location . Impression: No significant abnormality seen.
--- NOTE | 2025-02-03 11:28 | ECG_ITS ---
Test Date: 2025-02-03 11:34:21 Measurements Intervals Deposit Rate: 76 P: 29 LA: 132 QRS: 51 QRSD: 87 T: 14 QT: 387 QTc: 436 Interpretive Statements SINUS RHYTHM LOW QRS VOLTAGE IN PRECORDIAL LEADS POSSIBLE RIGHT VENTRICULAR CONDUCTION DELAY BORDERLINE ST-T WAVE ABNORMALITY- INFERIOR LEADS BORDERLINE ECG Compared to ECG 12/08/2024 09:15:13 Low QRS voltage now present Electronically Signed On 02-03-2025 15:06:40 CDT by Micha Waldron D.O.
--- OUTSIDE RECORDS SUMMARY | 2025-02-03 11:38 | XMS_ITS | Clinical Summary ---
Author Organization [facility] Address [address] [place] [address] Phone Care Team Providers Care Field Sales Specialist Name Role Phone Jose Roberto Thao MD Primary Care Provider [phone] Allergies Active Allergy Reactions Criticality Noted Date [...] on file Legal Sex Female 5:47 AM METAL INSPECTOR Gender Identity Not on file Sexual Orientation Not on file Last Filed Vital Signs Vital Sign Reading Time Taken Comments Blood Pressure 136/84 09/08/2023 3:38 PM METAL INSPECTOR Pulse 81 09/08/2023 3:34 PM METAL INSPECTOR Temperature 36.7 C (98 F) 09/08/2023 3:34 PM METAL INSPECTOR Respiratory Rate 18 09/08/2023 3:34 PM METAL INSPECTOR Oxygen Saturation 99% 09/08/2023 3:34 PM METAL INSPECTOR Inhaled Oxygen Concentration - - Weight 98 kg (216 lb) 09/08/2023 3:34 PM METAL INSPECTOR Height 154.9 cm (5' 1 ) 08/04/2009 5:53 PM CDT Body Mass Index - - Plan of Treatment Health Maintenance Due Date Last Done Comments PNEUMOCOCCAL VACCINE 0-49 YE ARS (1 of 2 - PCV) 1987 DTAP/TDAP/TD VACCINES (1 - Tdap) 2000 HEPATITIS B VACCINES (1 of 3 - 19+ 3-dose series) 2000 HPV/Cotest (21-29) 2002 PAP SMEAR 2002 CERVICAL CANCER SCREENING 2011 HPV/Cotest (30-65) 2011 PAP SMEAR 2011 BREAST CANCER SCREENING 2021 INFLUENZA VACCINE (#1) 2024 HPV VACCINES Aged Out No longer eligi ble based on patient's age to complete this topic Insurance Care Teams Field Sales Specialist Relationship Specialty Start Date End Date Jose Roberto Thao MD [address] [place] [address] PCP - General 08/04/09
--- OUTSIDE RECORDS SUMMARY | 2025-02-03 11:38 | XMS_ITS | Referral Summary ---
Author Organization [facility] Address [address] [place] [address] Care Team Providers Care Anger Control Counselor Name Role Phone Jose Roberto Thao MD Primary Care Provider [phone] Allergies Active Allergy Reactions Criticality Noted Date [...] (10/30/2021): Added automatically from request for surgery [id number] Cubital tunnel syndrome on left 10/30/2021 Overview (10/30/2021): Added automatically from request for surgery [id number] Social History Tobacco Use Types Packs/Day Years Used Date Smoking Tobacco: Every Day Cigarettes Smokeless Tobacco: Never Comments Unknown Sex and Gender Information Value Date Recorded Sex Assigned at Not on file Legal Sex Female 10:18 AM INTERFACE CONTROL OFFICER Gender Identity Not on file Sexual Orientation Not on file Last Filed Vital Signs Vital Sign Reading Time Taken Comments Blood Pressure 132/82 11/26/2021 8:11 AM INTERFACE CONTROL OFFICER Pulse 96 11/26/2021 8:11 AM INTERFACE CONTROL OFFICER Temperature - - Respiratory Rate - - Oxygen Saturation - - Inhaled Oxygen Concentration - - Weight 111.1 kg (245 lb) 11/26/2021 8:11 AM INTERFACE CONTROL OFFICER Height 152.4 cm (5') 11/26/2021 8:11 AM INTERFACE CONTROL OFFICER Body Mass Index 47.85 11/26/2021 8:11 AM INTERFACE CONTROL OFFICER Plan of Treatment Not on file Insurance Care Teams Anger Control Counselor Relationship Specialty Start Date End Date Jose Roberto Thao MD PCP - General 03/03/12
--- OUTSIDE RECORDS SUMMARY | 2025-02-03 11:38 | XMS_ITS | Encounter Summary ---
Author Organization [facility] Address [address] [place] [address] Phone Care Team Providers Care Trading Floor Operator Name Role Phone Jose Roberto Thao MD Primary Care Provider Reason for Referral * Radiology Services (Routine) - Closed Specialty Diagnoses / Procedures Referred By Contac t Referred To Contact Radiology Diagnoses Pre-op testing Procedures XR CHEST 2 VIEWS Mulugeta Moya MD Phone: tel: fax: Referral ID Status Reason Start Date Expiration Date Visits Re quested Visits Authorized [id number] Closed 11/08/2021 1 1 INAL CLERK * Radiology Services (Routine) - Closed Specialty Diagnoses / Procedures Referred By Contac t Referred To Contact Radiology Diagnoses Pre-op testing Procedures EKG 12 LEAD Mulugeta Moya MD Phone: tel: fax: Referral ID Status Reason Start Date Expiration Date Visits Re quested Visits Authorized [id number] Closed 11/08/2021 1 1 INAL CLERK Encounter Details Date Type Department Care Team (Late st Contact Info) Description 11/08/2021 Transcribe Orders [facility] Preop/Pacu II 1 [facility] [place] [address] Mulugeta Moya MD [address] [place] [address], [address] [place] [address] Pre-op testing (Primary Dx) Social History Tobacco [...] COVID-19? No / Unsure 11/11/2021 7:50 AM TERMINAL CLERK documented as of this encounter Plan of Treatment Not on file documented as of this encounter Results * XR CHEST 2 VIEWS (11/11/2021 8:46 AM TERMINAL CLERK) Anatomical Region Laterality Modality Chest N/A Digital Radiogra phy 11/11/2021 8:53 AM TERMINAL CLERK Impressions 11/11/2021 8:55 AM TERMINAL CLERK IMPRESSION: 1. Mild patchy bibasilar airspace opacities, which is likely related to subsegmental atelectasis. No definite evidence of focal consolidation. Narrative 11/11/2021 8:55 AM TERMINAL CLERK EXAM DESCRIPTION: XR CHEST 2 VIEWS REASON [...] Mathieu Kahn D.O. PS: PS Report ID: [id number] Reading Location: [id number] Procedure Note Mathieu Kahn DO - 11/11/2021 [...] Mathieu Kahn D.O. PS: PS Report ID: [id number] Reading Location: [id number] IMPRESSION: 1. Mild patchy bibasilar airspace opacities, which is likely related to subsegmental atelectasis. No definite evidence of focal consolidation. Mulugeta Moya MD IMG DIAGNOSTIC ORDERABL ES Final Result * EKG 12 LEAD (11/11/2021 8:17 AM TERMINAL CLERK) Ventricular Rate BPM EXTERNAL EKG Atrial Rate BPM EXTERNAL EKG P-R Interval 138 ms EXTERNAL EKG QRS Duration 78 ms EXTERNAL EKG Q-T Duration 382 ms EXTERNAL EKG QTC CALCULATION 441 ms EXTERNAL EKG P [place] 50 degrees EXTERNAL EKG R [place] 67 degrees EXTERNAL EKG T [place] 32 degrees EXTERNAL EKG 11/11/2021 8:17 AM TERMINAL CLERK Impressions EXTERNAL EKG - 11/12/2021 9:35 AM TERMINAL CLERK Sinus rhythm Low QRS voltages in precordial leads Comparison Summary: No serial comparison made Summary: Borderline ECG Confirmed by Dereje Og [id number] on 11/12/2021 9:35:35 AM Narrative Procedure Note Janet Reyez MD - 11/12/2021 IMPRESSION: Sinus rhythm Low QRS voltages in precordial leads Comparison Summary: No serial comparison made Summary: Borderline ECG Confirmed by Dereje Og [id number] on 11/12/2021 9:35:35 AM us Mulugeta Moya MD IMG ECG ORDERABLES Liyah federica Result EXTERNAL EKG * SARS-COV-2 BY MOLECULAR (11/11/2021 8:09 AM TERMINAL CLERK) SARSCOV2 NOT DETECTED (Referen ce Range for this test is Not Detected ) [facility] THERMOFISHER FAST DX 11/12/2021 7:47 AM TERMINAL CLERK [facility] Comment:This test was perfor med by a RT-PCR method. Other NASOPHARYNGEAL STRUCTURE / Unknown Non-Phlebotomy Collection / Unknown 11/11/2021 8:09 AM TERMINAL CLERK 11/11/2021 8:11 AM TERMINAL CLERK Narrative [facility] - 11/12/2021 7:47 AM TERMINAL CLERK Authorized Fact Sheets about this test for providers and patients are available at: https://www.fda.gov/medical-devices/dggobdihe-rljddotukr-icqmawq-devices/emergen -us e-authorizations us Cristino Ha MD MICROBIOLOGY - GENERAL ORDERA BLES Final Result [facility] [address] [place] [address], [place] * HEMOGLOBIN & HEMATOCRIT (H&H) (11/11/2021 8:09 AM TERMINAL CLERK) HEMOGLOBIN (HGB) 12.5 12.0 - 15.8 g/dL 11/11/2021 8:28 AM TERMINAL CLERK [facility] HEMATOCRIT (HCT) 39.6 36.0 - 47.0 % 11/11/2021 8:28 AM TERMINAL CLERK [facility] Blood Venipuncture / Unknown 11/11/2021 8:09 AM TERMINAL CLERK 11/11/2021 8:13 AM TERMINAL CLERK us Cristino Ha MD HEMATOLOGY ORDERABLES Final R esult [facility] [address] [place] [address] documented in this encounter Visit Diagnoses Diagnosis Pre-op testing- Primary Preoperative examination, unspecified Pre-op testing Preoperative examination, unspecified Pre-op testing Preoperative examination, unspecified documented in this encounter Care Teams Trading Floor Operator Relationship Specialty Start Date End Date Jose Roberto Thao MD [address] [address] PCP - General Family Medicine 05/21/18 documented as of this encounter
--- OUTSIDE RECORDS SUMMARY | 2025-02-03 11:38 | XMS_ITS | Clinical Summary ---
Author Organization [facility] Address [address] [place] [address] Phone Care Team Providers Care Welfare Officer Name Role Phone Jose Roberto Thao MD Primary Care Provider [phone] Allergies Active Allergy Reactions Criticality Noted Date [...] Comments Blood Pressure 126/82 11/12/2021 10:15 AM LOCOMOTIVE OILER Pulse 80 11/12/2021 10:15 AM LOCOMOTIVE OILER Temperature 36.8 C (98.2 F) 11/12/2021 10:15 AM LOCOMOTIVE OILER Respiratory Rate 16 11/12/2021 10:15 AM LOCOMOTIVE OILER Oxygen Saturation 92% 11/12/2021 10:30 AM LOCOMOTIVE OILER Inhaled Oxygen Concentration - - Weight 113.4 kg (250 lb) 11/12/2021 5:55 AM LOCOMOTIVE OILER Height 152.4 cm (5') 11/12/2021 5:55 AM LOCOMOTIVE OILER Body Mass Index 48.82 11/12/2021 5:55 AM LOCOMOTIVE OILER Plan of Treatment Health Maintenance Due Date Last Done Comments Hepatitis C Virus (HCV) Screening 1981 TdaP Immunization 1981 Influenza Immunization (#1) 2024 07/26/2020 SARS-COV-2 Immunization [...] age to complete this topic Insurance MEDICAID [facility] Care Teams Welfare Officer Relationship Specialty Start Date End Date Jose Roberto Thao MD [address] [place], [place] [id number] PCP - General Family Medicine 05/21/18
--- OUTSIDE RECORDS SUMMARY | 2025-02-03 11:38 | XMS_ITS | Clinical Summary ---
Author Organization [facility] Address [address] [place] [address] Care Team Providers Care Beet Topper Name Role Phone Jose Roberto Thao MD Primary Care Provider [phone] Allergies Active Allergy Reactions Criticality Noted Date [...] (10/30/2021): Added automatically from request for surgery [id number] Cubital tunnel syndrome on left 10/30/2021 Overview (10/30/2021): Added automatically from request for surgery [id number] Surgical History Surgery Date Site/Laterality Comments OTHER [...] on file Legal Sex Female 10:18 AM UI UX WEB DEVELOPER Gender Identity Not on file Sexual Orientation Not on file Obstetrics History Last Filed Vital Signs Vital Sign Reading Time Taken Comments Blood Pressure 132/82 11/26/2021 8:11 AM UI UX WEB DEVELOPER Pulse 96 11/26/2021 8:11 AM UI UX WEB DEVELOPER Temperature - - Respiratory Rate - - Oxygen Saturation - - Inhaled Oxygen Concentration - - Weight 111.1 kg (245 lb) 11/26/2021 8:11 AM UI UX WEB DEVELOPER Height 152.4 cm (5') 11/26/2021 8:11 AM UI UX WEB DEVELOPER Body Mass Index 47.85 11/26/2021 8:11 AM UI UX WEB DEVELOPER Plan of Treatment Not on file Insurance Care Teams Beet Topper Relationship Specialty Start Date End Date Jose Roberto Thao MD PCP - General 03/03/12
[2025-02-03 12:10] LABS: Basophils Absolute Auto 0.1 K/mm3 (0.0-0.1); Basophils Percent Auto 0.6 % (0.2-1.2); Eosinophils Absolute Auto 0.1 K/mm3 (0-0.3); Eosinophils Percent Auto 0.7 % (0-4.4); Hematocrit 40.8 % (37.0-47.0); Hemoglobin 12.7 g/dL (12.0-15.0); Immature Granulocyte Absolute 0.03 K/mm3 (0.00-0.031); Immature Granulocyte Percent A 0.3 % (0-0.5); Lymphocytes Absolute Auto 2.57 K/mm3 (0.9-3.2); Lymphocytes Percent Auto 28.5 % (18.3-44.2); Mean Corpuscular HGB Conc 31.1 g/dl (32-36); Mean Corpuscular Hemoglobin 26.5 pg (26-34); Mean Platelet Volume 9.3 fl (7.4-10.4); Monocytes Absolute Auto 0.5 K/mm3 (0.1-0.6); Monocytes Percent Auto 5.5 % (2.6-8.5); Neutrophils Absolute Auto 5.8 K/mm3 (1.3-6.7); Neutrophils Percent Auto 64.4 % (45.5-73.1); Platelet Count Result 350 k/mm3 (150-375); Red Cell Distribution Width 13.9 % (11.5-14.5)
--- OUTSIDE RECORDS SUMMARY | 2025-02-03 12:17 | XMS_ITS | Clinical Summary ---
Author Organization [facility] Address [address] [place] [address] Care Team Providers Care Hand Etcher Helper Name Role Phone Jose Roberto Thao MD Primary Care Provider [phone] Allergies Active Allergy Reactions Criticality Noted Date [...] (10/30/2021): Added automatically from request for surgery [id number] Cubital tunnel syndrome on left 10/30/2021 Overview (10/30/2021): Added automatically from request for surgery [id number] Surgical History Surgery Date Site/Laterality Comments OTHER [...] on file Legal Sex Female 10:18 AM STUDIO OPERATIONS ENGINEER IN CHARGE Gender Identity Not on file Sexual Orientation Not on file Obstetrics History Last Filed Vital Signs Vital Sign Reading Time Taken Comments Blood Pressure 132/82 11/26/2021 8:11 AM STUDIO OPERATIONS ENGINEER IN CHARGE Pulse 96 11/26/2021 8:11 AM STUDIO OPERATIONS ENGINEER IN CHARGE Temperature - - Respiratory Rate - - Oxygen Saturation - - Inhaled Oxygen Concentration - - Weight 111.1 kg (245 lb) 11/26/2021 8:11 AM STUDIO OPERATIONS ENGINEER IN CHARGE Height 152.4 cm (5') 11/26/2021 8:11 AM STUDIO OPERATIONS ENGINEER IN CHARGE Body Mass Index 47.85 11/26/2021 8:11 AM STUDIO OPERATIONS ENGINEER IN CHARGE Plan of Treatment Not on file Insurance Care Teams Hand Etcher Helper Relationship Specialty Start Date End Date Jose Roberto Thao MD PCP - General 03/03/12
--- OUTSIDE RECORDS SUMMARY | 2025-02-03 12:17 | XMS_ITS | Clinical Summary ---
Author Organization [facility] Address [address] [place] [address] Phone Care Team Providers Care Security Installer Name Role Phone Jose Roberto Thao MD Primary Care Provider [phone] Allergies Active Allergy Reactions Criticality Noted Date [...] on file Legal Sex Female 5:47 AM TIGHTENER Gender Identity Not on file Sexual Orientation Not on file Last Filed Vital Signs Vital Sign Reading Time Taken Comments Blood Pressure 136/84 09/08/2023 3:38 PM TIGHTENER Pulse 81 09/08/2023 3:34 PM TIGHTENER Temperature 36.7 C (98 F) 09/08/2023 3:34 PM TIGHTENER Respiratory Rate 18 09/08/2023 3:34 PM TIGHTENER Oxygen Saturation 99% 09/08/2023 3:34 PM TIGHTENER Inhaled Oxygen Concentration - - Weight 98 kg (216 lb) 09/08/2023 3:34 PM TIGHTENER Height 154.9 cm (5' 1 ) 08/04/2009 [...] to complete this topic Insurance Care Teams Security Installer Relationship Specialty Start Date End Date Jose Roberto Thao MD [address] [place] [address] PCP - General 08/04/09
--- OUTSIDE RECORDS SUMMARY | 2025-02-03 12:17 | XMS_ITS | Encounter Summary ---
Author Organization [facility] Address [address] [place] [address] Phone Care Team Providers Care Technical Services Rep Name Role Phone Jose Roberto Thao MD Primary Care Provider [phone] Reason for Referral * Radiology Services (Routine) - Closed Specialty Diagnoses / Procedures Referred By Contac t Referred To Contact Radiology Diagnoses Pre-op testing Procedures XR CHEST 2 VIEWS Mulugeta Moya MD Phone: tel: fax: Referral ID Status Reason Start Date Expiration Date Visits Re quested Visits Authorized [id number] Closed 11/08/2021 1 1 ETING SECRETARY * Radiology Services (Routine) - Closed Specialty Diagnoses / Procedures Referred By Contac t Referred To Contact Radiology Diagnoses Pre-op testing Procedures EKG 12 LEAD Mulugeta Moya MD Phone: tel: fax: Referral ID Status Reason Start Date Expiration Date Visits Re quested Visits Authorized [id number] Closed 11/08/2021 1 1 ETING SECRETARY Encounter Details Date Type Department Care Team (Late st Contact Info) Description 11/08/2021 Transcribe Orders [facility] Preop/Pacu II 1 [facility] [place] [address] Mulugeta Moya MD [address] [place] [address], [address] [place] [address] Pre-op testing (Primary Dx) Social History Tobacco [...] COVID-19? No / Unsure 11/11/2021 7:50 AM MARKETING SECRETARY documented as of this encounter Plan of Treatment Not on file documented as of this encounter Results * XR CHEST 2 VIEWS (11/11/2021 8:46 AM MARKETING SECRETARY) Anatomical Region Laterality Modality Chest N/A Digital Radiogra phy 11/11/2021 8:53 AM MARKETING SECRETARY Impressions 11/11/2021 8:55 AM MARKETING SECRETARY IMPRESSION: 1. Mild patchy bibasilar airspace opacities, which is likely related to subsegmental atelectasis. No definite evidence of focal consolidation. Narrative 11/11/2021 8:55 AM MARKETING SECRETARY EXAM DESCRIPTION: XR CHEST 2 VIEWS REASON [...] Mathieu Kahn D.O. PS: PS Report ID: [id number] Reading Location: [id number] Procedure Note Mathieu Kahn DO - 11/11/2021 [...] Mathieu Kahn D.O. PS: PS Report ID: [id number] Reading Location: [id number] IMPRESSION: 1. Mild patchy bibasilar airspace opacities, which is likely related to subsegmental atelectasis. No definite evidence of focal consolidation. Mulugeta Moya MD IMG DIAGNOSTIC ORDERABL ES Final Result * EKG 12 LEAD (11/11/2021 8:17 AM MARKETING SECRETARY) Ventricular Rate BPM EXTERNAL EKG Atrial Rate BPM EXTERNAL EKG P-R Interval 138 ms EXTERNAL EKG QRS Duration 78 ms EXTERNAL EKG Q-T Duration 382 ms EXTERNAL EKG QTC CALCULATION 441 ms EXTERNAL EKG P [place] 50 degrees EXTERNAL EKG R [place] 67 degrees EXTERNAL EKG T [place] 32 degrees EXTERNAL EKG 11/11/2021 8:17 AM MARKETING SECRETARY Impressions EXTERNAL EKG - 11/12/2021 9:35 AM MARKETING SECRETARY Sinus rhythm Low QRS voltages in precordial leads Comparison Summary: No serial comparison made Summary: Borderline ECG Confirmed by Dereje Og [id number] on 11/12/2021 9:35:35 AM Narrative Procedure Note Janet Reyez MD - 11/12/2021 IMPRESSION: Sinus rhythm Low QRS voltages in precordial leads Comparison Summary: No serial comparison made Summary: Borderline ECG Confirmed by Dereje Og [id number] on 11/12/2021 9:35:35 AM us Mulugeta Moya MD IMG ECG ORDERABLES [facility] Result EXTERNAL EKG * SARS-COV-2 BY MOLECULAR (11/11/2021 8:09 AM MARKETING SECRETARY) SARSCOV2 NOT DETECTED (Referen ce Range for this test is Not Detected ) [facility] THERMOFISHER FAST DX 11/12/2021 7:47 AM MARKETING SECRETARY [facility] Comment:This test was perfor med by a RT-PCR method. Other NASOPHARYNGEAL STRUCTURE / Unknown Non-Phlebotomy Collection / Unknown 11/11/2021 8:09 AM MARKETING SECRETARY 11/11/2021 8:11 AM MARKETING SECRETARY Narrative [facility] - 11/12/2021 7:47 AM MARKETING SECRETARY Authorized Fact Sheets about this test for providers and patients are available at: https://www.fda.gov/medical-devices/gsgghbdgb-aeibjpbsdk-tnzbmoa-devices/emergen -us e-authorizations us Cristino Ha MD MICROBIOLOGY - GENERAL ORDERA BLES Final Result [facility] [address] [place] [address], [place] * HEMOGLOBIN & HEMATOCRIT (H&H) (11/11/2021 8:09 AM MARKETING SECRETARY) HEMOGLOBIN (HGB) 12.5 12.0 - 15.8 g/dL 11/11/2021 8:28 AM MARKETING SECRETARY [facility] HEMATOCRIT (HCT) 39.6 36.0 - 47.0 % 11/11/2021 8:28 AM MARKETING SECRETARY [facility] Blood Venipuncture / Unknown 11/11/2021 8:09 AM MARKETING SECRETARY 11/11/2021 8:13 AM MARKETING SECRETARY us Cristino Ha MD HEMATOLOGY ORDERABLES Final R esult [facility] [place] [address] documented in this encounter Visit Diagnoses Diagnosis Pre-op testing- Primary Preoperative examination, unspecified Pre-op testing Preoperative examination, unspecified Pre-op testing Preoperative examination, unspecified documented in this encounter Care Teams Technical Services Rep Relationship Specialty Start Date End Date Jose Roberto Thao MD [address] [address] PCP - General Family Medicine 05/21/18 documented as of this encounter
--- OUTSIDE RECORDS SUMMARY | 2025-02-03 12:17 | XMS_ITS | Referral Summary ---
Author Organization [facility] Building [address] Address [address] [place] [address] Care Team Providers Care In Flight Refueling Craftsman Name Role Phone Jose Roberto Thao MD [...] (10/30/2021): Added automatically from request for surgery [id number] Cubital tunnel syndrome on left 10/30/2021 Overview (10/30/2021): Added automatically from request for surgery [id number] Social History Tobacco Use Types Packs/Day Years Used Date Smoking Tobacco: Every Day Cigarettes Smokeless Tobacco: Never Comments Unknown Sex and Gender Information Value Date Recorded Sex Assigned at Not on file Legal Sex Female 10:18 AM DATA ENTRY SUPERVISOR Gender Identity Not on file Sexual Orientation Not on file Last Filed Vital Signs Vital Sign Reading Time Taken Comments Blood Pressure 132/82 11/26/2021 8:11 AM DATA ENTRY SUPERVISOR Pulse 96 11/26/2021 8:11 AM DATA ENTRY SUPERVISOR Temperature - - Respiratory Rate - - Oxygen Saturation - - Inhaled Oxygen Concentration - - Weight 111.1 kg (245 lb) 11/26/2021 8:11 AM DATA ENTRY SUPERVISOR Height 152.4 cm (5') 11/26/2021 8:11 AM DATA ENTRY SUPERVISOR Body Mass Index 47.85 11/26/2021 8:11 AM DATA ENTRY SUPERVISOR Plan of Treatment Not on file Insurance Care Teams In Flight Refueling Craftsman Relationship Specialty Start Date End Date Jose Roberto Thao MD PCP - General 03/03/12
--- OUTSIDE RECORDS SUMMARY | 2025-02-03 12:17 | XMS_ITS | Clinical Summary ---
Author Organization [facility] Address [address] [place] [address] Phone Care Team Providers Care Health And Fitness Instructor Name Role Phone Jose Roberto Thao MD Primary Care Provider [phone] Allergies Active Allergy Reactions Criticality Noted Date [...] Comments Blood Pressure 126/82 11/12/2021 10:15 AM GEMOLOGIST Pulse 80 11/12/2021 10:15 AM GEMOLOGIST Temperature 36.8 C (98.2 F) 11/12/2021 10:15 AM GEMOLOGIST Respiratory Rate 16 11/12/2021 10:15 AM GEMOLOGIST Oxygen Saturation 92% 11/12/2021 10:30 AM GEMOLOGIST Inhaled Oxygen Concentration - - Weight 113.4 kg (250 lb) 11/12/2021 5:55 AM GEMOLOGIST Height 152.4 cm (5') 11/12/2021 5:55 AM GEMOLOGIST Body Mass Index 48.82 11/12/2021 5:55 AM GEMOLOGIST Plan of Treatment Health Maintenance Due Date [...] age to complete this topic Insurance MEDICAID [facility] Care Teams Health And Fitness Instructor Relationship Specialty Start Date End Date Jose Roberto Thao MD [address] [place], [place] [id number] PCP - General Family Medicine 05/21/18
[2025-02-03 12:31] LABS: Alanine Aminotransferase 17 U/L (6-35); Albumin Level 4.1 g/dL (3.5-5.1); Alkaline Phosphatase 53 U/L (38-126); Anion Gap 10 mmol/L (4-12); Aspartate Amino Transferase 25 U/L (14-36); Bilirubin,Total 0.4 mg/dL (0.2-1.3); Blood Urea Nitrogen 13 mg/dL (7-17); Calcium 8.7 mg/dL (8.4-10.2); Carbon Dioxide 23 mmol/L (22-30); Chloride 105 mmol/L (98-107); Estimated Glomerular Filt Rate > 60; Glucose 103 mg/dL (65-110); Potassium 4.1 mmol/L (3.4-5.0); Sodium 138 mmol/L (137-145)
[2025-02-03] MEDS: MECLIZINE HCL 25 MG TABLET PO (12:48)
[2025-02-03 12:50] LABS: Influenza A QL RT-PCR Negative (Negative); Influenza B QL RT-PCR Negative (Negative); RSV RNA, RT-PCR Negative (Negative); SARS-CoV-2 RNA PCR Negative (Negative)
--- NOTE | 2025-02-03 14:03 | ED.GENADULT ---
HPI - General Adult General Chief complaint: Dizziness Stated complaint: Dizzy, headache. CVA 2 mths ago Time Seen by Provider: 02/03/25 12:05 History of Present Illness HPI narrative: Patient 34-year-old female who presents ER with dizziness. Gets lightheaded for couple seconds at a time a different position movements. Unsure of which movement causes it. It makes her feel slightly flushed. She has posterior throbbing headache. No numbness or weakness to an arm or leg. No slurred speech. Denies fevers or chills. Related Data Allergies Allergy/AdvReac Type Severity Reaction Status Date / Time codeine Allergy Unknown Difficulty Verified 02/03/25 11:11 Breathing azithromycin AdvReac Intermediate Palpitation Verified 02/03/25 11:11 s Review of Systems Review of Systems: All systems reviewed & are unremarkable except as noted in HPI and below Constitutional: Constitutional: Reports no additional constitutional complaints ENT: Reports system reviewed and no additional complaints, except as documented Cardiovascular: Cardiovascular: Reports no additional cardiovascular complaints Respiratory: Respiratory: Reports no additional respiratory complaints Gastrointestinal: Gastrointestinal: Reports no additional gastrointestinal complaints PMFSH Past Medical History Medical History Pain of right thumb 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 Wrist pain, right URI (upper respiratory infection) BMI greater than 40 Adult BMI 45.0-49.9 kg/sq m BMI 50.0-59.9, adult Bone spur Morbid (severe) obesity due to excess calories Diverticulitis of intestine without perforation or abscess Surgical History Surgical History H/O eye surgery H/O knee surgery History of carpal tunnel surgery History of rotator cuff surgery Family History Family History Father Hypertension Family history of diabetes mellitus in first degree relative Acute myocardial infarction Pancreatitis Mother Acute myocardial infarction Cerebrovascular accident Sibling Hypertension Ovarian cyst COVID-19 Other Diabetes mellitus Family history of alcoholism Family history of malignant neoplasm Social History Social History Smoking packs per day: 0.5 Smoking cigarettes per day: 10.0 Years smoked: 16 Smoking pack-years: 8.00 Smoking status: Current every day smoker Tobacco type: cigarettes Second hand tobacco smoke exposure: No Alcohol intake: never Substance use: never Substance use type: does not use Do You Feel Safe in your Home?: Yes Lack of Transportation: No Lack of Food: Never True Current Housing: I Have Housing Concerned About Future Housing: No Difficulty Paying Gas/Electric Bills: No Difficulty Paying for Meds: No Currently Unemployed: No Education: High School Diploma/GED Difficulty w/ Childcare or Family Care: No Living arrangements: with family Occupation/Education: occupation Additional occupation/education comments: [employer] Gender identity (if verbalized by the patient): Female Exam Narrative: GENERAL: Well-appearing, well-nourished, and in no acute distress. HEAD: Normocephalic, atraumatic. EYES: PERRL and EOMI. ENT: Mucous membranes moist. TMs with air bubbles behind them but no erythema. Ear canal free of cerumen. NECK: Supple. CHEST: Clear to auscultation. No respiratory distress. HEART: Regular rate and rhythm. Normal peripheral pulses. EXTREMITIES: Normal range of motion. No edema. SKIN: Warm, dry, no rash. NEURO: Alert and oriented x3. PSYCH: Normal mood and affect. Course Course Emergency Course: Symptoms resolved with meclizine. Headache markedly improved. Informed of imaging and lab results which are unremarkable. Appropriate for discharge home. Vital Signs Vital signs: Vital Signs Temperature 97.2 F L 02/03/25 11:14 Pulse Rate 78 02/03/25 11:14 Respiratory Rate 20 02/03/25 11:14 Blood Pressure 128/70 02/03/25 11:14 Pulse Oximetry 99 02/03/25 11:14 Oxygen Delivery Room Air 02/03/25 11:14 Temperature 97.2 F L 02/03/25 11:14 Pulse Rate 79 02/03/25 14:01 Respiratory Rate 20 02/03/25 14:01 Blood Pressure 124/91 H 02/03/25 14:01 Pulse Oximetry 95 02/03/25 14:01 Oxygen Delivery Room Air 02/03/25 11:14 Medical Decision Making Vital Signs Vital Signs: Vital Signs Temperature 97.2 F L 02/03/25 11:14 Pulse Rate 78 02/03/25 11:14 Respiratory Rate 20 02/03/25 11:14 Blood Pressure 128/70 02/03/25 11:14 Pulse Oximetry 99 02/03/25 11:14 Oxygen Delivery Room Air 02/03/25 11:14 Temperature 97.2 F L 02/03/25 11:14 Pulse Rate 79 02/03/25 14:01 Respiratory Rate 20 02/03/25 14:01 Blood Pressure 124/91 H 02/03/25 14:01 Pulse Oximetry 95 02/03/25 14:01 Oxygen Delivery Room Air 02/03/25 11:14 Lab Data 02/03/25 11:59 02/03/25 11:59 Labs: Lab Results 02/03/25 02/03/25 Range/Units 11:59 12:08 WBC 9.0 (4.5-10.0) K/mm3 RBC 4.80 (4.2-5.4) M/mm3 Hgb 12.7 (12.0-15.0) g/dL Hct 40.8 (37.0-47.0) % MCV 85.0 (80-100) fl MCH 26.5 (26-34) pg MCHC 31.1 L (32-36) g/dl RDW 13.9 (11.5-14.5) % Plt Count 350 (150-375) k/mm3 MPV 9.3 (7.4-10.4) fl Immature Gran % (Auto) 0.3 (0-0.5) % Neut % (Auto) 64.4 (45.5-73.1) % Lymph % (Auto) 28.5 (18.3-44.2) % [place] % (Auto) 5.5 (2.6-8.5) % Eos % (Auto) 0.7 (0-4.4) % Baso % (Auto) 0.6 (0.2-1.2) % Lymph # (Auto) 2.57 (0.9-3.2) K/mm3 [place] # (Auto) 0.5 (0.1-0.6) K/mm3 Eos # (Auto) 0.1 (0-0.3) K/mm3 Baso # (Auto) 0.1 (0.0-0.1) K/mm3 Abs Immat Gran (auto) 0.03 (0.00-0.031) K/mm3 Absolute Neuts (auto) 5.8 (1.3-6.7) K/mm3 Absolute Nucleated RBC 0.000 (0.0-0.012) K/mm3 Nucleated RBC % 0.0 (0.0-0.2) % Sodium 138 (137-145) mmol/L Potassium 4.1 (3.4-5.0) mmol/L Chloride 105 (98-107) mmol/L Carbon Dioxide 23 (22-30) mmol/L Anion Gap 10 (4-12) mmol/L BUN 13 (7-17) mg/dL Creatinine 0.52 L (0.7-1.0) mg/dL Estim Creat Clear Calc Not Reportable Estimated GFR > 60 (59 - ) Glucose 103 (65-110) mg/dL Calcium 8.7 (8.4-10.2) mg/dL Total Bilirubin 0.4 (0.2-1.3) mg/dL AST 25 (14-36) U/L ALT 17 (6-35) U/L Alkaline Phosphatase 53 (38-126) U/L Total Protein 8.0 (6.3-8.2) g/dL Albumin 4.1 (3.5-5.1) g/dL Influenza A (RT-PCR) Negative (Negative) Influenza B (RT-PCR) Negative (Negative) RSV (RT-PCR) Negative (Negative) SARS-CoV-2 RNA (RT-PCR) Negative (Negative) Imaging Data Radiologist's impression: ITS Impressions Head CT 02/03/25 13:17 Impression: No significant abnormality seen. Discharge Plan Discharge Clinical Impression: Vertigo, Headache Patient Disposition: Home, Self-Care Condition: Stable Instructions: Vertigo (ED) Additional Instructions: Try to stay well hydrated at home. Please return to the emergency department if you develop worsening of your headache or a new headache which is severe, associated with vision changes, associated with neck stiffness or fever, or if it is different from any other headache that you have had before. Return to the emergency department if you develop numbness, weakness or tingling or problems with coordination, or if you develop severe nausea and vomiting and are unable to keep down fluids at home. Patient Language: Armenian Prescriptions: New meclizine 25 mg tablet 25 mg PO TID Qty: 20 0RF No Action meclizine 25 mg tablet 25 mg PO BID PRN (Reason: dizziness) Qty: 20 0RF albuterol sulfate 90 mcg/actuation HFA aerosol inhaler 1 puff inhalation Q4H PRN (Reason: shortness of breath or wheezing) 30 Days Qty: 8.5 3RF loratadine [Claritin] 10 mg tablet 10 mg PO DAILY Qty: 90 1RF gabapentin 100 mg capsule 100 mg PO QHS Qty: 30 2RF Rx Instructions: may increase to 300mg after 3-5 days if needed Follow-up/Referrals: Jose Roberto Thao MD [Primary Care Provider] - 1 Week
== END 2025-02-03 15:01 | disposition home or self-care (01) ==
PROVIDERS: Emergency Medicine; Emergency Provider Emergency Medicine; PCP Family Medicine
DX: R42 Dizziness and giddiness (principal); R51.9 Headache, unspecified; Z20.822 Contact with and (suspected) exposure to COVID-19; E66.01 Morbid (severe) obesity due to excess calories; Z68.42 Body mass index [BMI] 45.0-49.9, adult; F17.210 Nicotine dependence, cigarettes, uncomplicated; R94.31 Abnormal electrocardiogram [ECG] [EKG]
CPT/HCPCS: 36415; 70450; 80053; 85025; 87637; 93005; 99284; A9270

== ENCOUNTER 2025-04-01 08:13 | Emergency (ER) | payer OTHER, SELFPAY ==
--- NOTE | 2025-04-01 08:22 | ED.GENADULT ---
HPI - General Adult General Chief complaint: Ear Stated complaint: FACIAL PAIN Time Seen by Provider: 04/01/25 08:32 Source: patient, RN notes reviewed and old records reviewed Mode of arrival: ambulatory Limitations: no limitations History of Present Illness HPI narrative: 44-year-old female presents to the [facility] with left jaw, ear pain. Denies fevers. Has very poor dentition. Denies any chest pain, shortness of breath. Denies any sinus congestion. States that she has taken Tylenol, no other treatment prior to arrival Related Data Allergies Allergy/AdvReac Type Severity Reaction Status Date / Time codeine Allergy Unknown Difficulty Verified 04/01/25 08:24 Breathing azithromycin AdvReac Intermediate Palpitation Verified 04/01/25 08:24 s Review of Systems Review of Systems: All systems reviewed & are unremarkable except as noted in HPI and below Constitutional: Constitutional: Reports no additional constitutional complaints ENT: Reports as per HPI, Reports otalgia and Reports mouth pain Cardiovascular: Cardiovascular: Reports no additional cardiovascular complaints, Denies chest pain and Denies dyspnea Respiratory: Respiratory: Reports no additional respiratory complaints, Denies chest congestion, Denies cough and Denies dyspnea Musculoskeletal: Musculoskeletal: Reports no additional musculoskeletal complaints Integumentary/Breasts: Skin/Breast: Reports system reviewed and no additional complaints, except as docu PMFSH Past Medical History Medical History Pain of right thumb 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 Wrist pain, right URI (upper respiratory infection) BMI greater than 40 Adult BMI 45.0-49.9 kg/sq m BMI 50.0-59.9, adult Bone spur Morbid (severe) obesity due to excess calories Diverticulitis of intestine without perforation or abscess Surgical History Surgical History H/O eye surgery H/O knee surgery History of carpal tunnel surgery History of rotator cuff surgery Family History Family History Father Hypertension Family history of diabetes mellitus in first degree relative Acute myocardial infarction Pancreatitis Mother Acute myocardial infarction Cerebrovascular accident Sibling Hypertension Ovarian cyst COVID-19 Other Diabetes mellitus Family history of alcoholism Family history of malignant neoplasm Social History Social History (Reviewed 04/01/25 @ 17:34 by MANUEL Hall Smoking packs per day: 0.5 Smoking cigarettes per day: 10.0 Years smoked: 16 Smoking pack-years: 8.00 Smoking status: Current every day smoker Tobacco type: cigarettes Second hand tobacco smoke exposure: No Alcohol intake: never Substance use: never Substance use type: does not use Do You Feel Safe in your Home?: Yes Lack of Transportation: No Lack of Food: Never True Current Housing: I Have Housing Concerned About Future Housing: No Difficulty Paying Gas/Electric Bills: No Difficulty Paying for Meds: No Currently Unemployed: No Education: High School Diploma/GED Difficulty w/ Childcare or Family Care: No Living arrangements: with family Occupation/Education: occupation Additional occupation/education comments: [employer] Gender identity (if verbalized by the patient): Female Comments At the time of my signature, I reviewed and agree with the nursing past medical, surgical, social, and family history. There is no relevant family history pertinent to the patient complaint. Exam Const: General: cooperative, healthy appearing, comfortable, no acute distress, well developed, alert and well nourished Nutritional Appearance: well nourished Orientation/consciousness: patient oriented x3 Limitations: no limitations HENMT: Head: normal to inspection Ears: hearing grossly normal bilaterally, external ears normal, TM's normal bilaterally, EAC's normal, mastoids normal and no periauricular adenopathy Face/Nose/Sinus: Normal external nose present, Normal nares present and No nasal discharge present Face and sinus: normal facial exam, face symmetric, no erythema, no lacerations and no sinus tenderness Mouth: Yes Normal oral and palatal mucosa present, Yes lip normal, Yes tongue normal and Yes moist mucous membranes Teeth and gingiva: abnormal tooth and associated gingiva lower left tender and with associated gingival edema; without associated gingival fluctuance and poor dentition Throat: posterior oropharynx normal, uvula midline and no uvular edema Eyes: General: appearance normal, both eyes and all related structures Alignment and Position: alignment normal Neck: Neck: normal visual inspection, full ROM, no lymphadenopathy and no meningeal signs Chest: Chest palpation & inspection: normal inspection of the chest Resp: Effort & Inspection: normal respiratory effort and able to speak in complete sentences Cardio: Rate: regular rate Skin: General skin exam: normal color and no rashes or lesions noted Neuro: General: patient oriented x3, gait normal, moves all extremities and no meningeal signs Cognition (Neuro): normal cognition Speech: normal speech Gait exam (Neuro): Normal gait present Extrem: General: normal to inspection, full ROM, capillary refill normal and normal gait Psych: Appearance: grossly normal and well kempt Mental Status: mental status grossly normal Speech and movement: Normal speech and movement present and Clear speech present Affect: normal affect Attitude: cooperative Course Course Level of Care: Express Care Visit Vital Signs Vital signs: Vital Signs Temperature 98.1 F 04/01/25 08:24 Pulse Rate 90 04/01/25 08:24 Respiratory Rate 18 04/01/25 08:24 Blood Pressure 153/85 H 04/01/25 08:24 Pulse Oximetry 98 04/01/25 08:24 Temperature 98.1 F 04/01/25 08:24 Pulse Rate 90 04/01/25 08:24 Respiratory Rate 18 04/01/25 08:24 Blood Pressure 153/85 H 04/01/25 08:24 Pulse Oximetry 98 04/01/25 08:24 Reviewed Medical Decision Making MDM Narrative Medical decision making narrative: Patient sitting comfortably in exam room. Nontoxic, vitals stable. Patient in no acute distress patient with poor dentition, left lower jaw pain, swelling of the gingiva, no erythema to the TM. Patient is appropriate for outpatient treatment with close follow-up Discharge instructions reviewed with patient, as well as provided in writing per nursing staff. The instructions also include specific and strict return/GO TO THE ER as well as f/u information. All questions have been answered, and the patient deny any further questions with discharge and discharge plan. Some parts of this dictation were generated by voice recognition software and may contain typographical and/or grammatical inaccuracies. Differential Diagnosis Differential Diagnosis: dental abscess, dental pain, otitis media Medical Records Medical records reviewed: Yes I reviewed the external patient's medical records. Vital Signs Vital Signs: Vital Signs Temperature 98.1 F 04/01/25 08:24 Pulse Rate 90 04/01/25 08:24 Respiratory Rate 18 04/01/25 08:24 Blood Pressure 153/85 H 04/01/25 08:24 Pulse Oximetry 98 04/01/25 08:24 Temperature 98.1 F 04/01/25 08:24 Pulse Rate 90 04/01/25 08:24 Respiratory Rate 18 04/01/25 08:24 Blood Pressure 153/85 H 04/01/25 08:24 Pulse Oximetry 98 04/01/25 08:24 Reviewed Lab Data Lab results reviewed: Yes I reviewed the patient's lab results. Labs: Reviewed Critical Care Time Critical Care Time Critical Care Time: No Discharge Plan Discharge Clinical Impression: Dental decay Patient Disposition: Home Condition: Stable Instructions: Antibiotic Form, Toothache (ED) Additional Instructions: today your blood pressure was 153/85 it is recommended that you follow-up with your primary care provider to have this rechecked within 2 weeks. Finish the entire course of antibiotics Good oral hygiene is extremely important, following up with a dental provider, brushing her teeth twice a day and using a good mouthwash. After every time you eat be sure to use salt water rinses. Apply ice to face to help with pain. Take Tylenol alternating with Motrin as needed for pain. You can alternate every 4 hours You need to follow-up with a dental provider as soon as possible for further evaluation and treatment. A list of dental providers has been given to you Follow up with a Primary Care Provider (PCP) about medical needs. A PCP can help keep you healthy by preventive medicine and screening. Go to the ER for New or worsening symptoms. Patient Language: Malaysian Prescriptions: New penicillin V potassium 500 mg tablet 500 mg PO QID 7 Days Qty: 28 0RF No Action albuterol sulfate 90 mcg/actuation HFA aerosol inhaler 1 puff inhalation Q4H PRN (Reason: shortness of breath or wheezing) 30 Days Qty: 8.5 3RF gabapentin 100 mg capsule See Rx Instructions .ROUTE .COMPLEX Qty: 30 1RF Dose Instruction: TAKE 1 CAPSULE BY MOUTH ONCE DAILY AT BEDTIME. MAY INCREASE TO 300MG AFTER 3 TO 5 DAYS IF NEEDED Rx Instructions: TAKE 1 CAPSULE BY MOUTH ONCE DAILY AT BEDTIME. MAY INCREASE TO 300MG AFTER 3 TO 5 DAYS IF NEEDED Follow-up/Referrals: Jose Roberto Thao MD [Primary Care Provider] - 1 Week (express care follow up ) Stand Alone Forms: Work/School Release IP Time of Disposition: 08:41
[2025-04-01 08:24] VITALS: BP 153/85; PULSE 90; RESP 18; TEMP 36.7; O2SAT 98
== END 2025-04-01 08:48 | disposition home or self-care (01) ==
PROVIDERS: Emergency Provider Nurse Practitioner; PCP Family Medicine
DX: K02.9 Dental caries, unspecified (principal); F17.210 Nicotine dependence, cigarettes, uncomplicated; E66.01 Morbid (severe) obesity due to excess calories; Z68.41 Body mass index [BMI] 40.0-44.9, adult
CPT/HCPCS: 99213; G0463

== ENCOUNTER 2025-04-20 05:53 | Emergency (ER) | payer OTHER, SELFPAY ==
--- NOTE | ~2025-04-20 | CT_ITS ---
EXAMINATION: CT abdomen pelvis w con DATE: 04/20/2025 08:05 INDICATION: Lower abdominal pain TECHNIQUE: Computed tomography (CT) of the abdomen and pelvis was performed with 100 cc Omnipaque 350 intravenous contrast. The dose-length product was 1330.95 mGy-cm. Automated exposure control and ite rative reconstruction technique were employed. COMPARISON: CT dated 06/09/2024. FINDINGS: There are groundglass opacities of the lung bases which may reflect small airway disease. H eart size normal. The liver, spleen, pancreas, adrenal glands and kidneys are unremarkable. Nonobstru ctive bowel gas pattern. Normal appendix. No evidence for diverticulitis. Punctate nonobstructing lef t renal stones. No hydronephrosis. No significant vascular abnormality. No lymphadenopathy. No free a ir or free fluid. Mild osteoarthritis of the hips. IMPRESSION: 1. Nonobstructing left nephrolithiasis. 2: No acute abdominal abnormality. Reviewed, dictated and finalized at location A.
--- OUTSIDE RECORDS SUMMARY | 2025-04-20 05:55 | XMS_ITS | Encounter Summary ---
Author Organization [facility] Address [address] [place] [address] Phone Care Team Providers Care Medical Accountant Name Role Phone Jose Roberto Thao MD Primary Care Provider [phone] Reason for Referral * Radiology Services (Routine) - Closed Specialty Diagnoses / Procedures Referred By Contac t Referred To Contact Radiology Diagnoses Pre-op testing Procedures XR CHEST 2 VIEWS Mulugeta Moya MD Phone: tel: fax: Referral ID Status Reason Start Date Expiration Date Visits Re quested Visits Authorized [id number] Closed 11/08/2021 1 1 HETER * Radiology Services (Routine) - Closed Specialty Diagnoses / Procedures Referred By Contac t Referred To Contact Radiology Diagnoses Pre-op testing Procedures EKG 12 LEAD Mulugeta Moya MD Phone: tel: fax: Referral ID Status Reason Start Date Expiration Date Visits Re quested Visits Authorized [id number] Closed 11/08/2021 1 1 HETER Encounter Details Date Type Department Care Team (Late st Contact Info) Description 11/08/2021 Transcribe Orders [facility] Preop/Pacu II 1 [facility] [place] [address] Mulugeta Moya MD [address] [place] [address], [address] [place] [address] Pre-op testing (Primary Dx) Social History Tobacco [...] COVID-19? No / Unsure 11/11/2021 7:50 AM CROCHETER documented as of this encounter Plan of Treatment Not on file documented as of this encounter Results * XR CHEST 2 VIEWS (11/11/2021 8:46 AM CROCHETER) Anatomical Region Laterality Modality Chest N/A Digital Radiogra phy 11/11/2021 8:53 AM CROCHETER Impressions 11/11/2021 8:55 AM CROCHETER IMPRESSION: 1. Mild patchy bibasilar airspace opacities, which is likely related to subsegmental atelectasis. No definite evidence of focal consolidation. Narrative 11/11/2021 8:55 AM CROCHETER EXAM DESCRIPTION: XR CHEST 2 VIEWS REASON [...] Mathieu Kahn D.O. PS: PS Report ID: [id number] Reading Location: [id number] Procedure Note Mathieu Kahn DO - 11/11/2021 [...] Mathieu Kahn D.O. PS: PS Report ID: [id number] Reading Location: [id number] IMPRESSION: 1. Mild patchy bibasilar airspace opacities, which is likely related to subsegmental atelectasis. No definite evidence of focal consolidation. Mulugeta Moya MD IMG DIAGNOSTIC ORDERABL ES Final Result * EKG 12 LEAD (11/11/2021 8:17 AM CROCHETER) Ventricular Rate BPM EXTERNAL EKG Atrial Rate BPM EXTERNAL EKG P-R Interval 138 ms EXTERNAL EKG QRS Duration 78 ms EXTERNAL EKG Q-T Duration 382 ms EXTERNAL EKG QTC CALCULATION 441 ms EXTERNAL EKG P [place] 50 degrees EXTERNAL EKG R [place] 67 degrees EXTERNAL EKG T [place] 32 degrees EXTERNAL EKG 11/11/2021 8:17 AM CROCHETER Impressions EXTERNAL EKG - 11/12/2021 9:35 AM CROCHETER Sinus rhythm Low QRS voltages in precordial leads Comparison Summary: No serial comparison made Summary: Borderline ECG Confirmed by Dereje Og [id number] on 11/12/2021 9:35:35 AM Narrative Procedure Note Janet Reyez MD - 11/12/2021 IMPRESSION: Sinus rhythm Low QRS voltages in precordial leads Comparison Summary: No serial comparison made Summary: Borderline ECG Confirmed by Dereje Og [id number] on 11/12/2021 9:35:35 AM us Mulugeta Moya MD IMG ECG ORDERABLES Liyah federica Result EXTERNAL EKG * SARS-COV-2 BY MOLECULAR (11/11/2021 8:09 AM CROCHETER) SARSCOV2 NOT DETECTED (Referen ce Range for this test is Not Detected ) [facility] THERMOFISHER FAST DX 11/12/2021 7:47 AM CROCHETER [facility] Comment:This test was perfor med by a RT-PCR method. Other NASOPHARYNGEAL STRUCTURE / Unknown Non-Phlebotomy Collection / Unknown 11/11/2021 8:09 AM CROCHETER 11/11/2021 8:11 AM CROCHETER Narrative [facility] - 11/12/2021 7:47 AM CROCHETER Authorized Fact Sheets about this test for providers and patients are available at: https://www.fda.gov/medical-devices/iczhyggzn-pkvmcrgeej-doqaqiz-devices/emergen -us e-authorizations us Cristino Ha MD MICROBIOLOGY - GENERAL ORDERA BLES Final Result [facility] [address] [place] [address], [place] * HEMOGLOBIN & HEMATOCRIT (H&H) (11/11/2021 8:09 AM CROCHETER) HEMOGLOBIN (HGB) 12.5 12.0 - 15.8 g/dL 11/11/2021 8:28 AM CROCHETER [facility] HEMATOCRIT (HCT) 39.6 36.0 - 47.0 % 11/11/2021 8:28 AM CROCHETER [facility] Blood Venipuncture / Unknown 11/11/2021 8:09 AM CROCHETER 11/11/2021 8:13 AM CROCHETER us Cristino Ha MD HEMATOLOGY ORDERABLES Final R esult [facility] [place] [address] documented in this encounter Visit Diagnoses Diagnosis Pre-op testing- Primary Preoperative examination, unspecified Pre-op testing Preoperative examination, unspecified Pre-op testing Preoperative examination, unspecified documented in this encounter Care Teams Medical Accountant Relationship Specialty Start Date End Date Jose Roberto Thao MD [address] [address] PCP - General Family Medicine 05/21/18 documented as of this encounter
--- OUTSIDE RECORDS SUMMARY | 2025-04-20 05:55 | XMS_ITS | Clinical Summary ---
Author Organization [facility] Medical Office Building B Address [address] [place] [address] Care Team Providers Care Filenet P8 Developer Name Role Phone Jose Roberto Thao MD Primary Care Provider [phone] Allergies Active Allergy Reactions Criticality Noted Date Comments Codeine Anaphylaxis High 08/04/2009 Medications gabapentin (NEURONTIN) 100 mg capsule Take 1 capsule (100 mg total) by mouth daily Active chlorhexidine (PERIDEX) 0.12 % oral rinse Apply 15 mL to the mouth or throat 2 (two) times a day 120 mL 5 Active cetirizine (ZyrTEC) 10 mg tablet Take 10 mg by mouth daily 1 04/04/20 25 Discontinued fluconazole (DIFLUCAN) 150 mg tablet Take by mouth once 1 04/04/20 25 Discontinued FLUoxetine 10 mg capsule Take 10 mg by mouth daily 1 04/04/20 25 Discontinued pravastatin (PRAVACHOL) 10 mg tablet Take 10 mg by mouth daily 1 04/04/20 25 Discontinued clindamycin (CLEOCIN) 300 mg capsule Take 1 capsule (300 mg total) by mouth 2 (two) times a day for 10 days 20 capsule 5 04/14/20 25 Active Problems Problem Noted Date Diagnosed Date Peripheral polyneuropathy 04/04/2025 Carpal tunnel syndrome on left 10/30/2021 Overview (10/30/2021): Added automatically from request for surgery [id number] Cubital tunnel syndrome on left 10/30/2021 Overview (10/30/2021): Added automatically from request for surgery [id number] Encounters Date Type Department Care Team Description 04/04/2025 5:[address] [facility] Medical Group Virtual Care [address] [place] [phone] Teresa Burgos MD Pain, dental (Primary Dx) from Last 3 Months Surgical History Surgery Date Site/Laterality Comments OTHER [...] on file Legal Sex Female 10:18 AM PAINT STOCK CLERK Gender Identity Not on file Sexual Orientation Not on file Obstetrics History Last Filed Vital Signs Vital Sign Reading Time Taken Comments Blood Pressure 132/82 11/26/2021 8:11 AM PAINT STOCK CLERK Pulse 96 11/26/2021 8:11 AM PAINT STOCK CLERK Temperature - - Respiratory Rate - - Oxygen Saturation - - Inhaled Oxygen Concentration - - Weight 111.1 kg (245 lb) 11/26/2021 8:11 AM PAINT STOCK CLERK Height 152.4 cm (5') 11/26/2021 8:11 AM PAINT STOCK CLERK Body Mass Index 47.85 11/26/2021 8:11 AM PAINT STOCK CLERK Plan of Treatment Health Maintenance Due Date Last Done Comments Breast Cancer Screening-Mammogram 1981 Cervical Cancer Screening 1981 Depression Screening 1981 Hepatitis C Screening 1981 Varicella Vaccines (1 of 2 - 13+ 2-dose series) 1994 DTaP/Tdap/Td Vaccine (6 - Tdap) 06/15/1997 06/14/1997, 06/14/1986, 09/14/1985, Additional history exists Regular Well Visit/Exam 18-64 1999 Pneumococcal vaccine <65 (1 of 2 - PCV) 2000 Influenza Vaccine (Season Ended) 2025 07/26/2020, 07/12/2013, 11/04/2012 Hepatitis B Screening Completed 01/09/1999 , 08/15/1998, 07/11/1998 HPV Vaccines Aged Out No longer eligi ble based on patient's age to complete this topic Insurance [facility] Care Teams Filenet P8 Developer Relationship Specialty Start Date End Date Jose Roberto Thao MD PCP - General 03/03/12
--- OUTSIDE RECORDS SUMMARY | 2025-04-20 05:55 | XMS_ITS | Clinical Summary ---
Author Organization [facility] Address [address] [place] [address] Phone Care Team Providers Care Brewery Worker Name Role Phone Jose Roberto Thao MD Primary Care Provider [phone] Allergies Active Allergy Reactions Criticality Noted Date [...] Comments Blood Pressure 126/82 11/12/2021 10:15 AM PRIMER WATERPROOFING MACHINE OPERATOR Pulse 80 11/12/2021 10:15 AM PRIMER WATERPROOFING MACHINE OPERATOR Temperature 36.8 C (98.2 F) 11/12/2021 10:15 AM PRIMER WATERPROOFING MACHINE OPERATOR Respiratory Rate 16 11/12/2021 10:15 AM PRIMER WATERPROOFING MACHINE OPERATOR Oxygen Saturation 92% 11/12/2021 10:30 AM PRIMER WATERPROOFING MACHINE OPERATOR Inhaled Oxygen Concentration - - Weight 113.4 kg (250 lb) 11/12/2021 5:55 AM PRIMER WATERPROOFING MACHINE OPERATOR Height 152.4 cm (5') 11/12/2021 5:55 AM PRIMER WATERPROOFING MACHINE OPERATOR Body Mass Index 48.82 11/12/2021 5:55 AM PRIMER WATERPROOFING MACHINE OPERATOR Plan of Treatment Health Maintenance Due Date Last Done Comments Hepatitis C Virus (HCV) Screening 1981 TdaP Immunization 1981 Human Papillomavirus (HPV) Immunization (1 - 3-dose series) 1996 SARS-COV-2 Immunization ( season) 2024 10/15/2021, 09/24/2021 Influenza Immunization (Season Ended) 2025 07/26/2020 Respiratory Syncytial Virus (RSV) Immunization (Adult) (1 [...] to complete this topic Insurance Care Teams Brewery Worker Relationship Specialty Start Date End Date Jose Roberto Thao MD [address] [address] PCP - General Family Medicine 05/21/18
--- OUTSIDE RECORDS SUMMARY | 2025-04-20 05:55 | XMS_ITS | Clinical Summary ---
Author Organization [facility] Address [address] [place] [phone] Phone Care Team Providers Care Head Of Biology Name Role Phone Jose Roberto Thao MD Primary Care Provider [phone] Allergies Active Allergy Reactions Criticality Noted Date [...] on file Legal Sex Female 5:47 AM RISK ASSESSOR Gender Identity Not on file Sexual Orientation Not on file Last Filed Vital Signs Vital Sign Reading Time Taken Comments Blood Pressure 136/84 09/08/2023 3:38 PM RISK ASSESSOR Pulse 81 09/08/2023 3:34 PM RISK ASSESSOR Temperature 36.7 C (98 F) 09/08/2023 3:34 PM RISK ASSESSOR Respiratory Rate 18 09/08/2023 3:34 PM RISK ASSESSOR Oxygen Saturation 99% 09/08/2023 3:34 PM RISK ASSESSOR Inhaled Oxygen Concentration - - Weight 98 kg (216 lb) 09/08/2023 3:34 PM RISK ASSESSOR Height 154.9 cm (5' 1) 08/04/2009 5:53 PM CDT Body Mass Index - - Plan of Treatment Health Maintenance Due Date Last Done Comments DTAP/TDAP/TD VACCINES (1 - Tdap) 2000 HEPATITIS B VACCINES (1 of 3 - 19+ 3-dose series) 2000 HPV/Cotest (21-29) 2002 CERVICAL CANCER SCREENING 2011 HPV/Cotest (30-65) 2011 PAP SMEAR 2011 BREAST CANCER SCREENING 2021 INFLUENZA VACCINE (#1) 2024 HPV VACCINES Aged Out No longer eligi ble based on patient's age to complete this topic Insurance Care Teams Head Of Biology Relationship Specialty Start Date End Date Jose Roberto Thao MD [address] [place] [address] [facility] - General 08/04/09
--- OUTSIDE RECORDS SUMMARY | 2025-04-20 05:55 | XMS_ITS | Referral Summary ---
Author Organization [facility] Medical Office Building B Address [address] [place] [address] Care Team Providers Care Money Room Supervisor Name Role Phone Jose Roberto Thao MD Primary Care Provider [phone] Encounters Date Type Department Care Team Description 04/04/2025 5:15 PM CDT Telemedicine [facility] Medical Group Virtual Care [address] [place] [phone] Teresa Burgos MD Pain, dental (Primary Dx) from Last 3 Months Allergies Active Allergy Reactions Criticality Noted Date [...] (10/30/2021): Added automatically from request for surgery [id number] Cubital tunnel syndrome on left 10/30/2021 Overview (10/30/2021): Added automatically from request for surgery [id number] Social History Tobacco Use Types Packs/Day Years Used Date Smoking Tobacco: Every Day Cigarettes Smokeless Tobacco: Never Comments Unknown Sex and Gender Information Value Date Recorded Sex Assigned at Not on file Legal Sex Female 10:18 AM LONG GOODS DRIER Gender Identity Not on file Sexual Orientation Not on file Last Filed Vital Signs Vital Sign Reading Time Taken Comments Blood Pressure 132/82 11/26/2021 8:11 AM LONG GOODS DRIER Pulse 96 11/26/2021 8:11 AM LONG GOODS DRIER Temperature - - Respiratory Rate - - Oxygen Saturation - - Inhaled Oxygen Concentration - - Weight 111.1 kg (245 lb) 11/26/2021 8:11 AM LONG GOODS DRIER Height 152.4 cm (5') 11/26/2021 8:11 AM LONG GOODS DRIER Body Mass Index 47.85 11/26/2021 8:11 AM LONG GOODS DRIER Plan of Treatment Not on file Insurance Care Teams Money Room Supervisor Relationship Specialty Start Date End Date Jose Roberto Thao MD PCP - General 03/03/12
[2025-04-20 05:56] VITALS: BP 132/77; PULSE 98; RESP 18; TEMP 36.8; O2SAT 98
[2025-04-20 06:35] VITALS: BP 133/93; PULSE 84; RESP 20; TEMP 37.1; O2SAT 96
--- OUTSIDE RECORDS SUMMARY | 2025-04-20 07:25 | XMS_ITS | Clinical Summary ---
Author Organization [facility] Medical Office Building B Address [address] [place] [address] Care Team Providers Care Burner Operator Name Role Phone Jose Roberto Thao [...] (10/30/2021): Added automatically from request for surgery [id number] Cubital tunnel syndrome on left 10/30/2021 Overview (10/30/2021): Added automatically from request for surgery [id number] Encounters Date Type Department Care Team Description 04/04/2025 5:15 PM CDT Telemedicine [facility] Medical Group Virtual Care [address] [place] [phone] Teresa Burgos MD Pain, dental (Primary [...] on file Legal Sex Female 10:18 AM FIELD STAFF Gender Identity Not on file Sexual Orientation Not on file Obstetrics History Last Filed Vital Signs Vital Sign Reading Time Taken Comments Blood Pressure 132/82 11/26/2021 8:11 AM FIELD STAFF Pulse 96 11/26/2021 8:11 AM FIELD STAFF Temperature - - Respiratory Rate - - Oxygen Saturation - - Inhaled Oxygen Concentration - - Weight 111.1 kg (245 lb) 11/26/2021 8:11 AM FIELD STAFF Height 152.4 cm (5') 11/26/2021 8:11 AM FIELD STAFF Body Mass Index 47.85 11/26/2021 8:11 AM FIELD STAFF Plan of Treatment Health Maintenance Due Date [...] patient's age to complete this topic Insurance [facility] Care Teams Burner Operator Relationship Specialty Start Date End Date Jose Roberto Thao MD PCP - General 03/03/12
--- OUTSIDE RECORDS SUMMARY | 2025-04-20 07:25 | XMS_ITS | Clinical Summary ---
Author Organization [facility] Address [address] [place] [address] Phone Care Team Providers Care Cosmetics And Toiletries Salesperson Name Role Phone Jose Roberto Thao MD Primary Care Provider [phone] Allergies Active Allergy Reactions Criticality Noted Date [...] Comments Blood Pressure 126/82 11/12/2021 10:15 AM DENTAL OFFICE MANAGER Pulse 80 11/12/2021 10:15 AM DENTAL OFFICE MANAGER Temperature 36.8 C (98.2 F) 11/12/2021 10:15 AM DENTAL OFFICE MANAGER Respiratory Rate 16 11/12/2021 10:15 AM DENTAL OFFICE MANAGER Oxygen Saturation 92% 11/12/2021 10:30 AM DENTAL OFFICE MANAGER Inhaled Oxygen Concentration - - Weight 113.4 kg (250 lb) 11/12/2021 5:55 AM DENTAL OFFICE MANAGER Height 152.4 cm (5') 11/12/2021 5:55 AM DENTAL OFFICE MANAGER Body Mass Index 48.82 11/12/2021 5:55 AM DENTAL OFFICE MANAGER Plan of Treatment Health Maintenance Due Date [...] to complete this topic Insurance Care Teams Cosmetics And Toiletries Salesperson Relationship Specialty Start Date End Date Jose Roberto Thao MD [address] [address] PCP - General Family Medicine 05/21/18
--- OUTSIDE RECORDS SUMMARY | 2025-04-20 07:25 | XMS_ITS | Encounter Summary ---
Author Organization [facility] Address [address] [facility] [place] [address] Phone Care Team Providers Care Seed Specialist Name Role Phone Jose Roberto Thao MD Primary Care Provider [phone] Reason for Referral * Radiology Services (Routine) - Closed Specialty Diagnoses / Procedures Referred By Contac t Referred To Contact Radiology Diagnoses Pre-op testing Procedures XR CHEST 2 VIEWS Mulugeta Moya MD Phone: tel: fax: Referral ID Status Reason Start Date Expiration Date Visits Re quested Visits Authorized [id number] Closed 11/08/2021 1 1 OR COUNSEL * Radiology Services (Routine) - Closed Specialty Diagnoses / Procedures Referred By Contac t Referred To Contact Radiology Diagnoses Pre-op testing Procedures EKG 12 LEAD Mulugeta Moya MD Phone: tel: fax: Referral ID Status Reason Start Date Expiration Date Visits Re quested Visits Authorized [id number] Closed 11/08/2021 1 1 OR COUNSEL Encounter Details Date Type Department Care Team (Late st Contact Info) Description 11/08/2021 Transcribe Orders [facility] Preop/Pacu II 1 [facility] [place] [address] Mulugeta Moya MD [address] [place] [address], [address] [place] [address] Pre-op testing (Primary Dx) Social History Tobacco [...] COVID-19? No / Unsure 11/11/2021 7:50 AM SENIOR COUNSEL documented as of this encounter Plan of Treatment Not on file documented as of this encounter Results * XR CHEST 2 VIEWS (11/11/2021 8:46 AM SENIOR COUNSEL) Anatomical Region Laterality Modality Chest N/A Digital Radiogra phy 11/11/2021 8:53 AM SENIOR COUNSEL Impressions 11/11/2021 8:55 AM SENIOR COUNSEL IMPRESSION: 1. Mild patchy bibasilar airspace opacities, which is likely related to subsegmental atelectasis. No definite evidence of focal consolidation. Narrative 11/11/2021 8:55 AM SENIOR COUNSEL EXAM DESCRIPTION: XR CHEST 2 VIEWS REASON [...] Mathieu Kahn D.O. PS: PS Report ID: [id number] Reading Location: [id number] Procedure Note Mathieu Kahn DO - 11/11/2021 [...] Mathieu Kahn D.O. PS: PS Report ID: [id number] Reading Location: [id number] IMPRESSION: 1. Mild patchy bibasilar airspace opacities, which is likely related to subsegmental atelectasis. No definite evidence of focal consolidation. Mulugeta Moya MD IMG DIAGNOSTIC ORDERABL ES Final Result * EKG 12 LEAD (11/11/2021 8:17 AM SENIOR COUNSEL) Ventricular Rate BPM EXTERNAL EKG Atrial Rate BPM EXTERNAL EKG P-R Interval 138 ms EXTERNAL EKG QRS Duration 78 ms EXTERNAL EKG Q-T Duration 382 ms EXTERNAL EKG QTC CALCULATION 441 ms EXTERNAL EKG P [place] 50 degrees EXTERNAL EKG R [place] 67 degrees EXTERNAL EKG T [place] 32 degrees EXTERNAL EKG 11/11/2021 8:17 AM SENIOR COUNSEL Impressions EXTERNAL EKG - 11/12/2021 9:35 AM SENIOR COUNSEL Sinus rhythm Low QRS voltages in precordial leads Comparison Summary: No serial comparison made Summary: Borderline ECG Confirmed by Dereje Og [id number] on 11/12/2021 9:35:35 AM Narrative Procedure Note Janet Reyez MD - 11/12/2021 IMPRESSION: Sinus rhythm Low QRS voltages in precordial leads Comparison Summary: No serial comparison made Summary: Borderline ECG Confirmed by Dereje Og [id number] on 11/12/2021 9:35:35 AM us Mulugeta Moya MD IMG ECG ORDERABLES [facility] Result EXTERNAL EKG * SARS-COV-2 BY MOLECULAR (11/11/2021 8:09 AM SENIOR COUNSEL) SARSCOV2 NOT DETECTED (Referen ce Range for this test is Not Detected ) [facility] THERMOFISHER FAST DX 11/12/2021 7:47 AM SENIOR COUNSEL [facility] Comment:This test was perfor med by a RT-PCR method. Other NASOPHARYNGEAL STRUCTURE / Unknown Non-Phlebotomy Collection / Unknown 11/11/2021 8:09 AM SENIOR COUNSEL 11/11/2021 8:11 AM SENIOR COUNSEL Narrative [facility] - 11/12/2021 7:47 AM SENIOR COUNSEL Authorized Fact Sheets about this test for providers and patients are available at: https://www.fda.gov/medical-devices/wdwwfoqyk-gpbqokjacx-flnbyrq-devices/emergen -us e-authorizations us Cristino Ha MD MICROBIOLOGY - GENERAL ORDERA BLES Final Result [facility] [address] [place] [address], [place] * HEMOGLOBIN & HEMATOCRIT (H&H) (11/11/2021 8:09 AM SENIOR COUNSEL) HEMOGLOBIN (HGB) 12.5 12.0 - 15.8 g/dL 11/11/2021 8:28 AM SENIOR COUNSEL [facility] HEMATOCRIT (HCT) 39.6 36.0 - 47.0 % 11/11/2021 8:28 AM SENIOR COUNSEL [facility] Blood Venipuncture / Unknown 11/11/2021 8:09 AM SENIOR COUNSEL 11/11/2021 8:13 AM SENIOR COUNSEL us Cristino Ha MD HEMATOLOGY ORDERABLES Final R esult [facility] [address] [place] [address] documented in this encounter Visit Diagnoses Diagnosis Pre-op testing- Primary Preoperative examination, unspecified Pre-op testing Preoperative examination, unspecified Pre-op testing Preoperative examination, unspecified documented in this encounter Care Teams Seed Specialist Relationship Specialty Start Date End Date Jose Roberto Thao MD [address] [place] [address] PCP - General Family Medicine 05/21/18 documented as of this encounter
--- OUTSIDE RECORDS SUMMARY | 2025-04-20 07:25 | XMS_ITS | Referral Summary ---
Author Organization [facility] Medical Office Building B Address [address] [place] [address] Care Team Providers Care Vocational Training Director Name Role Phone Jose Roberto Thao MD Primary Care Provider Encounters Date Type Department Care Team Description 04/04/2025 5:15 PM CDT Telemedicine [facility] Medical Group Virtual Care [address] [place] [phone] Teresa Burgos MD Pain, dental (Primary [...] (10/30/2021): Added automatically from request for surgery [id number] Cubital tunnel syndrome on left 10/30/2021 Overview (10/30/2021): Added automatically from request for surgery [id number] Social History Tobacco Use Types Packs/Day Years Used Date Smoking Tobacco: Every Day Cigarettes Smokeless Tobacco: Never Comments Unknown Sex and Gender Information Value Date Recorded Sex Assigned at Not on file Legal Sex Female 10:18 AM MAPPING PILOT Gender Identity Not on file Sexual Orientation Not on file Last Filed Vital Signs Vital Sign Reading Time Taken Comments Blood Pressure 132/82 11/26/2021 8:11 AM MAPPING PILOT Pulse 96 11/26/2021 8:11 AM MAPPING PILOT Temperature - - Respiratory Rate - - Oxygen Saturation - - Inhaled Oxygen Concentration - - Weight 111.1 kg (245 lb) 11/26/2021 8:11 AM MAPPING PILOT Height 152.4 cm (5') 11/26/2021 8:11 AM MAPPING PILOT Body Mass Index 47.85 11/26/2021 8:11 AM MAPPING PILOT Plan of Treatment Not on file Insurance Care Teams Vocational Training Director Relationship Specialty Start Date End Date Jose Roberto Thao MD PCP - General 03/03/12
--- OUTSIDE RECORDS SUMMARY | 2025-04-20 07:25 | XMS_ITS | Clinical Summary ---
Author Organization [facility] Address [address] [place] [phone] Phone Care Team Providers Care Macadam Raker Name Role Phone Jose Roberto Thao MD Primary Care Provider [phone] Allergies Active Allergy Reactions Criticality Noted Date [...] on file Legal Sex Female 5:47 AM INTAKE MAN Gender Identity Not on file Sexual Orientation Not on file Last Filed Vital Signs Vital Sign Reading Time Taken Comments Blood Pressure 136/84 09/08/2023 3:38 PM INTAKE MAN Pulse 81 09/08/2023 3:34 PM INTAKE MAN Temperature 36.7 C (98 F) 09/08/2023 3:34 PM INTAKE MAN Respiratory Rate 18 09/08/2023 3:34 PM INTAKE MAN Oxygen Saturation 99% 09/08/2023 3:34 PM INTAKE MAN Inhaled Oxygen Concentration - - Weight 98 kg (216 lb) 09/08/2023 3:34 PM INTAKE MAN Height 154.9 cm (5' 1) 08/04/2009 5:53 [...] to complete this topic Insurance Care Teams Macadam Raker Relationship Specialty Start Date End Date Jose Roberto Thao MD [address] [place] [address] [facility] - General 08/04/09
[2025-04-20 07:35] LABS: Basophils Percent Auto 0.3 % (0.2-1.2); Eosinophils Absolute Auto 0.1 K/mm3 (0-0.3); Eosinophils Percent Auto 0.8 % (0-4.4); Hematocrit 41.5 % (37.0-47.0); Immature Granulocyte Absolute 0.05 K/mm3 (0.00-0.031); Immature Granulocyte Percent A 0.6 % (0-0.5); Lymphocytes Percent Auto 25.5 % (18.3-44.2); Mean Corpuscular HGB Conc 31.3 g/dl (32-36); Mean Corpuscular Hemoglobin 25.5 pg (26-34); Mean Corpuscular Volume 81.5 fl (80-100); Mean Platelet Volume 8.9 fl (7.4-10.4); Monocytes Absolute Auto 0.4 K/mm3 (0.1-0.6); Monocytes Percent Auto 4.9 % (2.6-8.5); Neutrophils Absolute Auto 5.9 K/mm3 (1.3-6.7); Neutrophils Percent Auto 67.9 % (45.5-73.1); Platelet Count Result 383 k/mm3 (150-375); Red Blood Count 5.09 M/mm3 (4.2-5.4); Red Cell Distribution Width 14.5 % (11.5-14.5); White Blood Count 8.6 K/mm3 (4.5-10.0)
[2025-04-20] MEDS: ONDANSETRON INJ 4 MG/2 ML VIAL IV PUSH (07:38)
[2025-04-20] MEDS: SODIUM CHLORIDE 0.9% IV 1,000 ML 999 ML IV CONT (07:39)
[2025-04-20] MEDS: MORPHINE SULFATE (*CRX) 4 MG/ML INJ IV PUSH (07:39)
[2025-04-20 07:44] LABS: BEDSIDEPREGUCG Negative (Negative)
[2025-04-20 07:47] LABS: Alanine Aminotransferase 18 U/L (6-35); Albumin Level 4.1 g/dL (3.5-5.1); Alkaline Phosphatase 65 U/L (38-126); Anion Gap 5 mmol/L (4-12); Aspartate Amino Transferase 22 U/L (14-36); Bilirubin,Total 0.6 mg/dL (0.2-1.3); Blood Urea Nitrogen 9 mg/dL (7-17); Calcium 9.4 mg/dL (8.4-10.2); Carbon Dioxide 27 mmol/L (22-30); Chloride 104 mmol/L (98-107); Estimated Glomerular Filt Rate > 60; Glucose 104 mg/dL (65-110); Lipase 37 U/L (23-300); Potassium 4.2 mmol/L (3.4-5.0); Sodium 136 mmol/L (137-145); Total Protein 7.8 g/dL (6.3-8.2)
--- NOTE | 2025-04-20 07:51 | ED_ITS ---
HPI - Abdominal Pain General Chief Complaint: Abdominal Pain Stated Complaint: abd pain Time Seen by Provider: 04/20/25 07:12 History of Present Illness HPI narrative: Pt presents with lower abdominal pain since last night. Pt denies diarrhea or urinary symptoms. Pt is nauseated. Pain is constant. Related Data Allergies Allergy/AdvReac Type Severity Reaction Status Date / Time codeine Allergy Unknown Difficulty Verified 04/20/25 05:59 Breathing azithromycin AdvReac Intermediate Palpitation Verified 04/20/25 05:59 s Review of Systems 2 Review of Systems: All systems reviewed & are unremarkable except as noted in HPI and below PMFSH Past Medical History Medical History Pain of right thumb Decreased care professional strength of right hand Wrist pain, right URI (upper respiratory infection) BMI greater than 40 Adult BMI 45.0-49.9 kg/sq m BMI 50.0-59.9, adult Bone spur Morbid (severe) obesity due to excess calories Diverticulitis of intestine without perforation or abscess Surgical History Surgical History H/O eye surgery H/O knee surgery History of carpal tunnel surgery History of rotator cuff surgery Family History Family History Father Hypertension Family history of diabetes mellitus in first degree relative Acute myocardial infarction Pancreatitis Mother Acute myocardial infarction Cerebrovascular accident Sibling Hypertension Ovarian cyst COVID-19 Other Diabetes mellitus Family history of alcoholism Family history of malignant neoplasm Social History Social History Smoking packs per day: 0.5 Smoking cigarettes per day: 10.0 Years smoked: 16 Smoking pack-years: 8.00 Smoking status: Current every day smoker Tobacco type: cigarettes Second hand tobacco smoke exposure: No Alcohol intake: never Substance use: never Substance use type: does not use Do You Feel Safe in your Home?: Yes Lack of Transportation: No Lack of Food: Never True Current Housing: I Have Housing Concerned About Future Housing: No Difficulty Paying Gas/Electric Bills: No Difficulty Paying for Meds: No Currently Unemployed: No Education: High School Diploma/GED Difficulty w/ Childcare or Family Care: No Living arrangements: with family Occupation/Education: occupation Additional occupation/education comments: [employer] Gender identity (if verbalized by the patient): Female Exam 2 Const: General: healthy appearing and no acute distress Nutritional Appearance: well nourished Orientation/consciousness: patient oriented x3 Limitations: no limitations Eyes: Conjunctivae: conjunctivae normal EOM: EOMs intact bilaterally Neck: Neck: normal visual inspection Resp: Effort & Inspection: normal respiratory effort Auscultation: clear to auscultation bilaterally Cardio: Rate: regular rate Rhythm: regular rhythm GI: GI Palp: Yes Soft to palpation and Yes Tenderness to palpation present (GI) (mild diffuse lower abd tenderness across entire low abdomen) A uscultation: normal bowel sounds : General: Yes no CVA tenderness Back/Spine/Pelvis: Back: no CVA tenderness Skin: General skin exam: normal color Rashes: no rashes Wounds: no wounds Neuro: General: patient oriented x3, moves all extremities, no meningeal signs, no focal motor deficits and CN's II-XI intact bilaterally Cranial nerves: Yes Nystagmus not present Speech: normal speech Extrem: General: normal to inspection and no clubbing, cyanosis or edema Psych: Mental Status: mental status grossly normal Affect: normal affect Attitude: cooperative Course Vital Signs Vital signs: Vital Signs Temperature 98.3 F 04/20/25 05:56 Pulse Rate 98 04/20/25 05:56 Respiratory Rate 18 04/20/25 05:56 Blood Pressure 132/77 04/20/25 05:56 Pulse Oximetry 98 04/20/25 05:56 Oxygen Delivery Room Air 04/20/25 05:56 Temperature 98.7 F 04/20/25 06:35 Pulse Rate 84 04/20/25 06:35 Respiratory Rate 20 04/20/25 06:35 Blood Pressure 133/93 H 04/20/25 06:35 Pulse Oximetry 96 04/20/25 06:35 Oxygen Delivery Room Air 04/20/25 06:35 MDM - Abdominal Pain MDM Narrative Medical decision making narrative: Pt presents with lower abdominal pain since last night. will get labs and UA and CT and treat pain and nausea. labs and UA and CT unremarkable. Pt resting comfortable on cart. home on pain and nausea meds. Differential Diagnosis Differential diagnosis: Likely abdominal pain, diverticulitis, endometriosis, small bowel obstruction and other (colitis uti among others) Lab Data 04/20/25 07:31 04/20/25 07:30 Labs: Lab Results 04/20/25 04/20/25 04/20/25 Range/Units 06:58 07:30 07:31 WBC 8.6 (4.5-10.0) K/mm3 RBC 5.09 (4.2-5.4) M/mm3 Hgb 13.0 (12.0-15.0) g/dL Hct 41.5 (37.0-47.0) % MCV 81.5 (80-100) fl MCH 25.5 L (26-34) pg MCHC 31.3 L (32-36) g/dl RDW 14.5 (11.5-14.5) % Plt Count 383 H (150-375) k/mm3 MPV 8.9 (7.4-10.4) fl Immature Gran % (Auto) 0.6 H (0-0.5) % Neut % (Auto) 67.9 (45.5-73.1) % Lymph % (Auto) 25.5 (18.3-44.2) % Shannon % (Auto) 4.9 (2.6-8.5) % Eos % (Auto) 0.8 (0-4.4) % Baso % (Auto) 0.3 (0.2-1.2) % Lymph # (Auto) 2.20 (0.9-3.2) K/mm3 Shannon # (Auto) 0.4 (0.1-0.6) K/mm3 Eos # (Auto) 0.1 (0-0.3) K/mm3 Baso # (Auto) 0.0 (0.0-0.1) K/mm3 Abs Immat Gran (auto) 0.05 H (0.00-0.031) K/mm3 Absolute Neuts (auto) 5.9 (1.3-6.7) K/mm3 Absolute Nucleated RBC 0.000 (0.0-0.012) K/mm3 Nucleated RBC % 0.0 (0.0-0.2) % Sodium 136 L (137-145) mmol/L Potassium 4.2 (3.4-5.0) mmol/L Chloride 104 (98-107) mmol/L Carbon Dioxide 27 (22-30) mmol/L Anion Gap 5 (4-12) mmol/L BUN 9 (7-17) mg/dL Creatinine 0.67 L (0.7-1.0) mg/dL Estim Creat Clear Calc Not Reportable Estimated GFR > 60 (59 - ) Glucose 104 (65-110) mg/dL Calcium 9.4 (8.4-10.2) mg/dL Total Bilirubin 0.6 (0.2-1.3) mg/dL AST 22 (14-36) U/L ALT 18 (6-35) U/L Alkaline Phosphatase 65 (38-126) U/L Total Protein 7.8 (6.3-8.2) g/dL Albumin 4.1 (3.5-5.1) g/dL Lipase 37 (23-300) U/L Urine Color (Yellow) Urine Appearance (Clear) Urine pH (5.0-9.0) Ur Specific [place] (1.001-1.035) Urine Protein (Negative) mg/dL Urine Glucose (UA) (Negative) mg/dL Urine Ketones (Negative) mg/dL Ur Blood (Man) (Negative) Urine Nitrate (Negative) Urine Bilirubin (Negative) Urine Urobilinogen (<2.0) mg/dL Leukocyte Esterase Rfl (Negative) EMILY/UL POC Urine HCG, Qual Negative (Negative) 04/20/25 Range/Units 08:39 WBC (4.5-10.0) K/mm3 RBC (4.2-5.4) M/mm3 Hgb (12.0-15.0) g/dL Hct (37.0-47.0) % MCV (80-100) fl MCH (26-34) pg MCHC (32-36) g/dl RDW (11.5-14.5) % Plt Count (150-375) k/mm3 MPV (7.4-10.4) fl Immature Gran % (Auto) (0-0.5) % Neut % (Auto) (45.5-73.1) % Lymph % (Auto) (18.3-44.2) % Shannon % (Auto) (2.6-8.5) % Eos % (Auto) (0-4.4) % Baso % (Auto) (0.2-1.2) % Lymph # (Auto) (0.9-3.2) K/mm3 Shannon # (Auto) (0.1-0.6) K/mm3 Eos # (Auto) (0-0.3) K/mm3 Baso # (Auto) (0.0-0.1) K/mm3 Abs Immat Gran (auto) (0.00-0.031) K/mm3 Absolute Neuts (auto) (1.3-6.7) K/mm3 Absolute Nucleated RBC (0.0-0.012) K/mm3 Nucleated RBC % (0.0-0.2) % Sodium (137-145) mmol/L Potassium (3.4-5.0) mmol/L Chloride (98-107) mmol/L Carbon Dioxide (22-30) mmol/L Anion Gap (4-12) mmol/L BUN (7-17) mg/dL Creatinine (0.7-1.0) mg/dL Estim Creat Clear Calc Estimated GFR (59 - ) Glucose (65-110) mg/dL Calcium (8.4-10.2) mg/dL Total Bilirubin (0.2-1.3) mg/dL AST (14-36) U/L ALT (6-35) U/L Alkaline Phosphatase (38-126) U/L Total Protein (6.3-8.2) g/dL Albumin (3.5-5.1) g/dL Lipase (23-300) U/L Urine Color Yellow (Yellow) Urine Appearance Clear (Clear) Urine pH 6.5 (5.0-9.0) Ur Specific [place] > 1.045 H (1.001-1.035) Urine Protein Negative (Negative) mg/dL Urine Glucose (UA) Negative (Negative) mg/dL Urine Ketones Negative (Negative) mg/dL Ur Blood (Man) Negative (Negative) Urine Nitrate Negative (Negative) Urine Bilirubin Negative (Negative) Urine Urobilinogen 0.2 (<2.0) mg/dL Leukocyte Esterase Rfl Negative (Negative) EMILY/UL POC Urine HCG, Qual (Negative) Imaging Data Radiologist's impression: ITS Impressions Abdomen/Pelvis CT 04/20/25 08:11 IMPRESSION: 1. Nonobstructing left nephrolithiasis. 2: No acute abdominal abnormality. Discharge Plan Discharge Clinical Impression: Abdominal pain Patient Disposition: Home Condition: Improved Instructions: Antibiotic Form, Abdominal Pain (ED) Patient Language: Danish Prescriptions: New hydrocodone-acetaminophen 5-325 mg tablet 1 tablet PO Q6H PRN (Reason: pain) Qty: 10 0RF ondansetron 4 mg tablet,disintegrating 4 mg PO Q8H PRN (Reason: nausea and vomiting) Qty: 10 0RF No Action penicillin V potassium 500 mg tablet 500 mg PO QID 7 Days Qty: 28 0RF albuterol sulfate 90 mcg/actuation HFA aerosol inhaler 1 puff inhalation Q4H PRN (Reason: shortness of breath or wheezing) 30 Days Qty: 8.5 3RF gabapentin 100 mg capsule See Rx Instructions .ROUTE .COMPLEX Qty: 30 1RF Dose Instruction: TAKE 1 CAPSULE BY MOUTH ONCE DAILY AT BEDTIME. MAY INCREASE TO 300MG AFTER 3 TO 5 DAYS IF NEEDED Rx Instructions: TAKE 1 CAPSULE BY MOUTH ONCE DAILY AT BEDTIME. MAY INCREASE TO 300MG AFTER 3 TO 5 DAYS IF NEEDED Follow-up/Referrals: Jose Roberto Thao MD [Primary Care Provider] -
[2025-04-20 08:46] LABS: Add Urine Microscopic? NO; Appearance Urine Clear (Clear); Bilirubin Urine Negative (Negative); Blood Urine Negative (Negative); Color Urine Yellow (Yellow); Glucose Urine UA Negative (Negative); Ketones Urine Negative (Negative); Leukocyte Esterase Ur Negative LEU/UL (Negative); Nitrate Urine Negative (Negative); Protein Urine Negative (Negative); Specific Grav Ur > 1.045 (1.001-1.035); Urobilinogen Urine 0.2 mg/dL (<2.0); pH Urine 6.5 (5.0-9.0)
== END 2025-04-20 10:08 | disposition home or self-care (01) ==
PROVIDERS: Student in an Organized Health Care Education/Training Program; Emergency Provider Emergency Medicine; PCP Family Medicine
DX: R10.30 Lower abdominal pain, unspecified (principal); E66.01 Morbid (severe) obesity due to excess calories; Z68.42 Body mass index [BMI] 45.0-49.9, adult; F17.210 Nicotine dependence, cigarettes, uncomplicated; N20.0 Calculus of kidney
CPT/HCPCS: 36415; 74177; 80053; 81003; 81025; 83690; 85025; 96361; 96374; 96375; 99284; J2270; J2405; J7030; Q9967

== ENCOUNTER 2025-06-11 22:59 | Emergency (ER) | payer OTHER, SELFPAY ==
--- NOTE | ~2025-06-11 | CT_ITS ---
EXAMINATION: CT abdomen pelvis w con DATE: 06/12/2025 00:50 INDICATION: Abdomen pain TECHNIQUE: Computed tomography (CT) of the abdomen and pelvis was performed with 100 cc Omnipaque 350 intravenous contrast. The dose-length product was 1486.17 mGy-cm. Automated exposure control and ite rative reconstruction technique were employed. COMPARISON: CT dated 04/20/2025. FINDINGS: Lung bases unremarkable. Heart size normal. No significant pleural or pericardial effusion. Fatty infiltration of the liver. The spleen, pancreas, adrenal glands and kidneys are unremarkable. Gallbladder is contracted. Nonobstructive bowel gas pattern. No abnormal pelvic masses or fluid colle ctions. No free air or free fluid. No significant vascular abnormality. No lymphadenopathy. IMPRESSION: 1. No acute abdominal abnormality. Reviewed, dictated and finalized at location A.
--- OUTSIDE RECORDS SUMMARY | 2025-06-11 23:02 | XMS_ITS | Clinical Summary ---
Author Organization [facility] Address [address] [place] [address] Care Team Providers Care Dust Collector Operator Name Role Phone Jose Roberto Thao MD Primary Care Provider Allergies Active Allergy Reactions Criticality Noted Date Comments Codeine Anaphylaxis High 08/04/2009 Medications gabapentin (NEURONTIN) 100 mg capsule Take 1 capsule (100 mg total) by mouth daily Active chlorhexidine (PERIDEX) 0.12 % oral rinse Apply 15 mL to the mouth or throat 2 (two) times a day 120 mL 04/04/2025 Active Active Problems Problem Noted Date Diagnosed Date Peripheral polyneuropathy 04/04/2025 Carpal tunnel syndrome on left 10/30/2021 Overview (10/30/2021): Added automatically from request for surgery [id number] Cubital tunnel syndrome on left 10/30/2021 Overview (10/30/2021): Added automatically from request for surgery [id number] Encounters Date Type Department Care Team Description 04/04/2025 5:15 PM CDT Telemedicine [facility] Virtual Care [address] [place] [phone] Teresa Burgos MD Pain, dental (Primary Dx) from Last 3 Months Surgical History Surgery Date Site/Laterality Comments OTHER SURGICAL HISTORY KANDACE: CPAP SECTION section KNEE SURGERY SHOULDER SURGERY CARPAL TUNNEL RELEASE Medical History Medical History Date Comments Hx Other Medical KANDACE Depression Depression Hypercholesteremia Kidney stone Family History Medical History Relation Name Comments Coronary artery disease Father Alexander goldman artery disease; Diabetes type II Father Diabetes [...] on file Legal Sex Female 10:18 AM PHP MYSQL DEVELOPER Gender Identity Not on file Sexual Orientation Not on file Obstetrics History Last Filed Vital Signs Vital Sign Reading Time Taken Comments Blood Pressure 132/82 11/26/2021 8:11 AM PHP MYSQL DEVELOPER Pulse 96 11/26/2021 8:11 AM PHP MYSQL DEVELOPER Temperature - - Respiratory Rate - - Oxygen Saturation - - Inhaled Oxygen Concentration - - Weight 111.1 kg (245 lb) 11/26/2021 8:11 AM PHP MYSQL DEVELOPER Height 152.4 cm (5') 11/26/2021 8:11 AM PHP MYSQL DEVELOPER Body Mass Index 47.85 11/26/2021 8:11 AM PHP MYSQL DEVELOPER Plan of Treatment Health Maintenance Due Date Last Done Comments Breast Cancer Screening-Mammogram 1981 Cervical Cancer Screening 1981 Depression Screening 1981 Hepatitis C Screening 1981 Varicella Vaccines (1 of 2 - 13+ 2-dose series) 1994 DTaP/Tdap/Td Vaccine (6 - Tdap) 06/15/1997 06/14/1997, 06/14/1986, 09/14/1985, Additional history exists Regular Well Visit/Exam 18-64 1999 Pneumococcal vaccine <65 (1 of 2 - PCV) 2000 HPV Vaccines (1 - 3-dose SCD M series) 2008 Influenza Vaccine (#1) 2025 0, 07/12/2013, 11/04/2012 Hepatitis B Screening Completed 01/09/1999 , 08/15/1998, 07/11/1998 Insurance [facility] Care Teams Dust Collector Operator Relationship Specialty Start Date End Date Jose Roberto Thao MD PCP - General 03/03/12
--- OUTSIDE RECORDS SUMMARY | 2025-06-11 23:02 | XMS_ITS | Encounter Summary ---
Author Organization [facility] Address [address] [facility] [place] [address] Phone Care Team Providers Care Neck Band Maker Name Role Phone Jose Roberto Thao MD Primary Care Provider [phone] Reason for Referral * Radiology Services (Routine) - Closed Specialty Diagnoses / Procedures Referred By Contac t Referred To Contact Radiology Diagnoses Pre-op testing Procedures XR CHEST 2 VIEWS Mulugeta Moya MD Phone: tel: fax: Referral ID Status Reason Start Date Expiration Date Visits Re quested Visits Authorized [id number] Closed 11/08/2021 1 1 POSTING CLERK * Radiology Services (Routine) - Closed Specialty Diagnoses / Procedures Referred By Contac t Referred To Contact Radiology Diagnoses Pre-op testing Procedures EKG 12 LEAD Mulugeta Moya MD Phone: tel: fax: Referral ID Status Reason Start Date Expiration Date Visits Re quested Visits Authorized [id number] Closed 11/08/2021 1 1 POSTING CLERK Encounter Details Date Type Department Care Team (Late st Contact Info) Description 11/08/2021 Transcribe Orders [facility] Preop/Pacu II [address] [place] [address] Mulugeta Moya MD [address] [place] [address], [address] [place] [address] Pre-op testing (Primary Dx) Social History Tobacco [...] COVID-19? No / Unsure 11/11/2021 7:50 AM CASH POSTING CLERK documented as of this encounter Plan of Treatment Not on file documented as of this encounter Results * XR CHEST 2 VIEWS (11/11/2021 8:46 AM CASH POSTING CLERK) Anatomical Region Laterality Modality Chest N/A Digital Radiogra phy 11/11/2021 8:53 AM CASH POSTING CLERK Impressions 11/11/2021 8:55 AM CASH POSTING CLERK IMPRESSION: 1. Mild patchy bibasilar airspace opacities, which is likely related to subsegmental atelectasis. No definite evidence of focal consolidation. Narrative 11/11/2021 8:55 AM CASH POSTING CLERK EXAM DESCRIPTION: XR CHEST 2 VIEWS [...] Mathieu Kahn D.O. PS: PS Report ID: [id number] Reading Location: [id number] Procedure Note Mathieu Kahn DO - 11/11/2021 [...] Mathieu Kahn D.O. PS: PS Report ID: [id number] Reading Location: [id number] IMPRESSION: 1. Mild patchy bibasilar airspace opacities, which is likely related to subsegmental atelectasis. No definite evidence of focal consolidation. Mulugeta Moya MD IMG DIAGNOSTIC ORDERABL ES Final Result * EKG 12 LEAD (11/11/2021 8:17 AM CASH POSTING CLERK) Ventricular Rate BPM EXTERNAL EKG Atrial Rate BPM EXTERNAL EKG P-R Interval 138 ms EXTERNAL EKG QRS Duration 78 ms EXTERNAL EKG Q-T Duration 382 ms EXTERNAL EKG QTC CALCULATION 441 ms EXTERNAL EKG P [place] 50 degrees EXTERNAL EKG R [place] 67 degrees EXTERNAL EKG T [place] 32 degrees EXTERNAL EKG 11/11/2021 8:17 AM CASH POSTING CLERK Impressions EXTERNAL EKG - 11/12/2021 9:35 AM CASH POSTING CLERK Sinus rhythm Low QRS voltages in precordial leads Comparison Summary: No serial comparison made Summary: Borderline ECG Confirmed by Dereje Og [id number] on 11/12/2021 9:35:35 AM Narrative Procedure Note Janet Reyez MD - 11/12/2021 IMPRESSION: Sinus rhythm Low QRS voltages in precordial leads Comparison Summary: No serial comparison made Summary: Borderline ECG Confirmed by Dereje Og [id number] on 11/12/2021 9:35:35 AM us Mulgueta Moya MD IMG ECG ORDERABLES [facility]yah [facility] Result EXTERNAL EKG * SARS-COV-2 BY MOLECULAR (11/11/2021 8:09 AM CASH POSTING CLERK) SARSCOV2 NOT DETECTED (Referen ce Range for this test is Not Detected ) [facility] THERMOF[facility]ER FAST DX 11/12/2021 7:47 AM CASH POSTING CLERK [facility] Comment:This test was perfor med by a RT-PCR method. Other NASOPHARYNGEAL STRUCTURE / Unknown Non-Phlebotomy Collection / Unknown 11/11/2021 8:09 AM CASH POSTING CLERK 11/11/2021 8:11 AM CASH POSTING CLERK Narrative [facility] - 11/12/2021 7:47 AM CASH POSTING CLERK Authorized Fact Sheets about this test for providers and patients are available at: https://www.fda.gov/medical-devices/wgpjoixuz-juyqznbsbd-tfpeyma-devices/emergen -us e-authorizations us Cristino Ha MD MICROBIOLOGY - GENERAL ORDERA BLES Final Result [facility] [address] [place] [address], [place] * HEMOGLOBIN & HEMATOCRIT (H&H) (11/11/2021 8:09 AM CASH POSTING CLERK) HEMOGLOBIN (HGB) 12.5 12.0 - 15.8 g/dL 11/11/2021 8:28 AM CASH POSTING CLERK [facility] HEMATOCRIT (HCT) 39.6 36.0 - 47.0 % 11/11/2021 8:28 AM CASH POSTING CLERK [facility] Blood Venipuncture / Unknown 11/11/2021 8:09 AM CASH POSTING CLERK 11/11/2021 8:13 AM CASH POSTING CLERK us Cristino Ha MD HEMATOLOGY ORDERABLES Final R esult [facility] [address] [place] [address] documented in this encounter Visit Diagnoses Diagnosis Pre-op testing- Primary Preoperative examination, unspecified Pre-op testing Preoperative examination, unspecified Pre-op testing Preoperative examination, unspecified documented in this encounter Care Teams Neck Band Maker Relationship Specialty Start Date End Date Jose Roberto Thao MD [address] [address] PCP - General Family Medicine 05/21/18 documented as of this encounter
--- OUTSIDE RECORDS SUMMARY | 2025-06-11 23:02 | XMS_ITS | Clinical Summary ---
Author Organization [facility] Address [address] [place] [phone] Phone Care Team Providers Care Rural Carrier Associate Name Role Phone Jose Roberto Thao MD Primary Care Provider [phone] Allergies Active Allergy Reactions Criticality Noted Date [...] on file Legal Sex Female 5:47 AM FINANCIAL SERVICE REP Gender Identity Not on file Sexual Orientation Not on file Last Filed Vital Signs Vital Sign Reading Time Taken Comments Blood Pressure 136/84 09/08/2023 3:38 PM FINANCIAL SERVICE REP Pulse 81 09/08/2023 3:34 PM FINANCIAL SERVICE REP Temperature 36.7 C (98 F) 09/08/2023 3:34 PM FINANCIAL SERVICE REP Respiratory Rate 18 09/08/2023 3:34 PM FINANCIAL SERVICE REP Oxygen Saturation 99% 09/08/2023 3:34 PM FINANCIAL SERVICE REP Inhaled Oxygen Concentration - - Weight 98 kg (216 lb) 09/08/2023 3:34 PM FINANCIAL SERVICE REP Height 154.9 cm (5' 1) 08/04/2009 5:53 PM CDT Body Mass Index - - Plan of Treatment Health Maintenance Due Date Last Done Comments HPV VACCINES (1 - 3-dose series) 1996 DTAP/TDAP/TD VACCINES (1 - Tdap) 2000 HEPATITIS B VACCINES (1 of 3 - 19+ 3-dose series) 08/03 HPV/Cotest (21-29) 2002 CERVICAL CANCER SCREENING 2011 HPV/Cotest (30-65) 2011 PAP SMEAR 2011 BREAST CANCER SCREENING 2021 INFLUENZA VACCINE (#1) 2025 Insurance Care Teams Rural Carrier Associate Relationship Specialty Start Date End Date Jose Roberto Thao MD [address] [place] [address] [facility] - General 08/04/09
--- OUTSIDE RECORDS SUMMARY | 2025-06-11 23:02 | XMS_ITS | Clinical Summary ---
Author Organization [facility] Address [address] [place] [address] Phone Care Team Providers Care Gasket Winder Name Role Phone Jose Roberto Thao MD Primary Care Provider [phone] Allergies Active Allergy Reactions Criticality Noted Date [...] Comments Blood Pressure 126/82 11/12/2021 10:15 AM MANAGER DIVERSITY Pulse 80 11/12/2021 10:15 AM MANAGER DIVERSITY Temperature 36.8 C (98.2 F) 11/12/2021 10:15 AM MANAGER DIVERSITY Respiratory Rate 16 11/12/2021 10:15 AM MANAGER DIVERSITY Oxygen Saturation 92% 11/12/2021 10:30 AM MANAGER DIVERSITY Inhaled Oxygen Concentration - - Weight 113.4 kg (250 lb) 11/12/2021 5:55 AM MANAGER DIVERSITY Height 152.4 cm (5') 11/12/2021 5:55 AM MANAGER DIVERSITY Body Mass Index 48.82 11/12/2021 5:55 AM MANAGER DIVERSITY Plan of Treatment Health Maintenance Due Date Last Done Comments Hepatitis C Virus (HCV) Screening 1981 TdaP Immunization 1981 Pap Smear 2002 Human Papillomavirus (HPV) Immunization (1 - 3-dose SCDM series) 2008 Cervical Cancer Screening (CCS) 2011 HPV/Cotest 2011 SARS-COV-2 Immunization ( season) 2024 10/15/2021, 09/24/2021 Influenza Immunization (#1) 2025 07/26/2020 Respiratory Syncytial Virus (RSV) Immunization [...] Insurance MEDICA[employer] Care Teams Gasket Winder Relationship Specialty Start Date End Date Jose Roberto Thao MD [address] [place] [address] PCP - General Family Medicine 05/21/18
[2025-06-11 23:09] VITALS: BP 132/102; PULSE 95; RESP 16; TEMP 36.6; O2SAT 96
[2025-06-11 23:29] LABS: BEDSIDEPREGUCG Negative (Negative)
[2025-06-11 23:55] LABS: Add Urine Microscopic? YES; Appearance Urine Cloudy (Clear); Glucose Urine UA Negative (Negative); Leukocyte Esterase Ur Negative LEU/UL (Negative); Need Manual Microscopic Reviewed; Nitrate Urine Negative (Negative); Non Pathogenic Casts 0-2; Specific Grav Ur 1.020 (1.001-1.035)
[2025-06-12 00:10] LABS: Hematocrit 39.9 % (37.0-47.0); Hemoglobin 12.8 g/dL (12.0-15.0); Immature Granulocyte Percent A 0.5 % (0-0.5); Lymphocytes Absolute Auto 2.94 K/mm3 (0.9-3.2); Mean Corpuscular HGB Conc 32.1 g/dl (32-36); Mean Corpuscular Hemoglobin 25.8 pg (26-34); Mean Corpuscular Volume 80.4 fl (80-100); Nucleated Red Blood Cells Absolute Auto 0.000 K/mm3 (0.0-0.012); Nucleated Red Blood Cells Perc 0.0 % (0.0-0.2); Platelet Count Result 407 k/mm3 (150-375); Red Blood Count 4.96 M/mm3 (4.2-5.4); White Blood Count 20.8 K/mm3 (4.5-10.0)
--- NOTE | 2025-06-12 00:17 | ED_ITS ---
HPI - Abdominal Pain General Chief Complaint: Abdominal Pain Stated Complaint: abdominal pain/vomiting Time Seen by Provider: 06/12/25 00:12 Source: patient Mode of arrival: ambulatory Limitations: no limitations History of Present Illness HPI narrative: This is a 44 year old female that presents to the ER for abdominal pain, nausea and vomiting. Ongoing over the last several hours. Denies fevers, diarrhea, dysuria, hematuria. 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 Wrist pain, right URI (upper respiratory infection) BMI greater than 40 Adult BMI 45.0-49.9 kg/sq m BMI 50.0-59.9, adult Bone spur Morbid (severe) obesity due to excess calories Diverticulitis of intestine without perforation or abscess Surgical History Surgical History H/O eye surgery H/O knee surgery History of carpal tunnel surgery History of rotator cuff surgery Family History Family History Father Hypertension Family history of diabetes mellitus in first degree relative Acute myocardial infarction Pancreatitis Mother Acute myocardial infarction Cerebrovascular accident Sibling Hypertension Ovarian cyst COVID-19 Other Diabetes mellitus Family history of alcoholism Family history of malignant neoplasm Social History Social History Smoking packs per day: 0.5 Smoking cigarettes per day: 10.0 Years smoked: 16 Smoking pack-years: 8.00 Smoking status: Current every day smoker Tobacco type: cigarettes Second hand tobacco smoke exposure: No Alcohol intake: never Substance use: never Substance use type: does not use Do You Feel Safe in your Home?: Yes Lack of Transportation: No Lack of Food: Never True Current Housing: I Have Housing Concerned About Future Housing: No Difficulty Paying Gas/Electric Bills: No Difficulty Paying for Meds: No Currently Unemployed: No Education: High School Diploma/GED Difficulty w/ Childcare or Family Care: No Living arrangements: with family Occupation/Education: occupation Additional occupation/education comments: [employer] Gender identity (if verbalized by the patient): Female Exam 2 Narrative: GENERAL: Uncomfortable, well-nourished, and in no acute distress. HEAD: Normocephalic, atraumatic. EYES: EOMI. ENT: Nares clear, no rhinorrhea or epistaxis. Mucous membranes moist. Oropharynx without tonsillar hypertrophy exudate or other lesions. CHEST: Clear to auscultation. No respiratory distress. No wheezes rales or rhonchi HEART: Regular rate and rhythm. No murmur heard. Normal peripheral pulses. ABDOMEN: Soft, nondistended, normal active bowel sounds, tender to palpation throughout the abdomen, without guarding. EXTREMITIES: Normal range of motion. No edema. SKIN: Warm, dry, no rash. NEURO: No focal deficits. Alert and oriented x3. PSYCH: Normal mood and affect Course Vital Signs Vital signs: Vital Signs Temperature 97.8 F 06/11/25 23:09 Pulse Rate 95 06/11/25 23:09 Respiratory Rate 16 06/11/25 23:09 Blood Pressure 132/102 H 06/11/25 23:09 Pulse Oximetry 96 06/11/25 23:09 Oxygen Delivery Room Air 06/11/25 23:09 Temperature 97.8 F 06/11/25 23:09 Pulse Rate 95 06/12/25 00:31 Respiratory Rate 22 H 06/12/25 00:31 Blood Pressure 161/83 H 06/12/25 00:31 Pulse Oximetry 97 06/12/25 00:31 Oxygen Delivery Room Air 06/11/25 23:09 MDM - Abdominal Pain MDM Narrative Medical decision making narrative: Patient presents emergency department for lower abdominal pain. Patient is afebrile and nontoxic appearing. Her vitals are stable. CBC with leukocytosis to 20.8. Metabolic panel and lipase without concerning findings. Urine without evidence of infection. CT abdomen and pelvis was read as no acute findings, but I believe maybe some mild diverticulitis. Will be started on oral antibiotics. Instructed to follow-up with her PCP. She was given warnings to return to the ER Differential Diagnosis Differential diagnosis: Likely calculus of kidney, diverticulitis and small bowel obstruction Lab Data Attestation: I reviewed the patient's lab results. 06/11/25 23:58 06/11/25 23:58 Labs: Lab Results 06/11/25 06/11/25 06/11/25 Range/Units 23:22 23:26 23:58 WBC 20.8 H (4.5-10.0) K/mm3 RBC 4.96 (4.2-5.4) M/mm3 Hgb 12.8 (12.0-15.0) g/dL Hct 39.9 (37.0-47.0) % MCV 80.4 (80-100) fl MCH 25.8 L (26-34) pg MCHC 32.1 (32-36) g/dl RDW 14.3 (11.5-14.5) % Plt Count 407 H (150-375) k/mm3 MPV 8.9 (7.4-10.4) fl Immature Gran % (Auto) 0.5 (0-0.5) % Neut % (Auto) 81.3 H (45.5-73.1) % Lymph % (Auto) 14.2 L (18.3-44.2) % [place] % (Auto) 3.3 (2.6-8.5) % Eos % (Auto) 0.5 (0-4.4) % Baso % (Auto) 0.2 (0.2-1.2) % Lymph # (Auto) 2.94 (0.9-3.2) K/mm3 [place] # (Auto) 0.7 H (0.1-0.6) K/mm3 Eos # (Auto) 0.1 (0-0.3) K/mm3 Baso # (Auto) 0.1 (0.0-0.1) K/mm3 Abs Immat Gran (auto) 0.11 H (0.00-0.031) K/mm3 Absolute Neuts (auto) 16.9 H (1.3-6.7) K/mm3 Absolute Nucleated RBC 0.000 (0.0-0.012) K/mm3 Nucleated RBC % 0.0 (0.0-0.2) % Sodium 134 L (137-145) mmol/L Potassium 4.0 (3.4-5.0) mmol/L Chloride 103 (98-107) mmol/L Carbon Dioxide 24 (22-30) mmol/L Anion Gap 7 (4-12) mmol/L BUN 13 (7-17) mg/dL Creatinine 0.66 L (0.7-1.0) mg/dL Estim Creat Clear Calc Not Reportable Estimated GFR > 60 (59 - ) Glucose 172 H (65-110) mg/dL Calcium 9.2 (8.4-10.2) mg/dL Total Bilirubin 0.2 (0.2-1.3) mg/dL AST 17 (14-36) U/L ALT 15 (6-35) U/L Alkaline Phosphatase 68 (38-126) U/L Total Protein 7.6 (6.3-8.2) g/dL Albumin 4.0 (3.5-5.1) g/dL Lipase 37 (23-300) U/L Urine Color Yellow (Yellow) Urine Appearance Cloudy H (Clear) Urine pH 5.5 (5.0-9.0) Ur Specific [place] 1.020 (1.001-1.035) Urine Protein 1+ H (Negative) mg/dL Urine Glucose (UA) Negative (Negative) mg/dL Urine Ketones Trace H (Negative) mg/dL Ur Blood (Man) 3+ H (Negative) Urine Nitrate Negative (Negative) Urine Bilirubin Negative (Negative) Urine Urobilinogen 0.2 (<2.0) mg/dL Add Ur Microanalysis Reviewed Leukocyte Esterase Rfl Negative (Negative) EMILY/UL Urine RBC 21-50 H (0-2) /hpf Urine WBC 0-5 (0-3) /hpf Ur Squamous Epith Cells Occasional (Few) /hpf Calcium Oxalate Crystal Present (None) /hpf Urine Bacteria 1+ H /hpf Urine Casts 0-2 POC Urine HCG, Qual Negative (Negative) Imaging Data My impression: CT abdomen/pelvis: Mild diverticulitis Radiologist's impression: CT abdomen/pelvis: No acute finding Critical Care Time Critical Care Time Critical Care Time: No Discharge Plan Discharge Clinical Impression: Diverticulitis Patient Disposition: Home Condition: Stable Instructions: Antibiotic Form, Diverticulitis (ED), Diverticulitis Diet (ED) Additional Instructions: Return to the ER if you experience fever, abdominal pain with nausea and vomiting, you are unable to keep down liquids or solids, blood in the stool, or any other symptoms that are concerning to you Remain well hydrated. Liquid diet over the next day or 2 until your pain is improving. Take oral antibiotics as prescribed Follow up with your primary care doctor Patient Language: Martiniquais Prescriptions: New ciprofloxacin HCl [Cipro] 500 mg tablet 500 mg PO Q12H 7 Days Qty: 14 0RF metronidazole 500 mg tablet 500 mg PO BID 7 Days Qty: 14 0RF No Action albuterol sulfate 90 mcg/actuation HFA aerosol inhaler 1 puff inhalation Q4H PRN (Reason: shortness of breath or wheezing) 30 Days Qty: 8.5 3RF gabapentin 100 mg capsule See Rx Instructions .ROUTE .COMPLEX Qty: 30 1RF Dose Instruction: TAKE 1 CAPSULE BY MOUTH ONCE DAILY AT BEDTIME. MAY INCREASE TO 300MG AFTER 3 TO 5 DAYS IF NEEDED Rx Instructions: TAKE 1 CAPSULE BY MOUTH ONCE DAILY AT BEDTIME. MAY INCREASE TO 300MG AFTER 3 TO 5 DAYS IF NEEDED Follow-up/Referrals: Jose Roberto Thao MD [Primary Care Provider] -
[2025-06-12 00:22] LABS: Alanine Aminotransferase 15 U/L (6-35); Albumin Level 4.0 g/dL (3.5-5.1); Alkaline Phosphatase 68 U/L (38-126); Anion Gap 7 mmol/L (4-12); Aspartate Amino Transferase 17 U/L (14-36); Bilirubin,Total 0.2 mg/dL (0.2-1.3); Blood Urea Nitrogen 13 mg/dL (7-17); Calcium 9.2 mg/dL (8.4-10.2); Carbon Dioxide 24 mmol/L (22-30); Chloride 103 mmol/L (98-107); Estimated Glomerular Filt Rate > 60; Glucose 172 mg/dL (65-110); Lipase 37 U/L (23-300); Potassium 4.0 mmol/L (3.4-5.0); Sodium 134 mmol/L (137-145); Total Protein 7.6 g/dL (6.3-8.2)
--- OUTSIDE RECORDS SUMMARY | 2025-06-12 00:27 | XMS_ITS | Clinical Summary ---
Author Organization [facility] Address [address] [place] [address] Care Team Providers Care Retention Representative Name Role Phone Jose Roberto Thao MD Primary Care Provider [phone] Allergies Active Allergy Reactions Criticality Noted Date [...] (10/30/2021): Added automatically from request for surgery [id number] Cubital tunnel syndrome on left 10/30/2021 Overview (10/30/2021): Added automatically from request for surgery [id number] Encounters Date Type Department Care Team Description 04/04/2025 5:15 PM CDT Telemedicine [facility] Virtual Care [address] [place] [phone] Teresa Burgos MD Pain, dental (Primary [...] on file Legal Sex Female 10:18 AM ASBESTOS CLOTH INSPECTOR Gender Identity Not on file Sexual Orientation Not on file Obstetrics History Last Filed Vital Signs Vital Sign Reading Time Taken Comments Blood Pressure 132/82 11/26/2021 8:11 AM ASBESTOS CLOTH INSPECTOR Pulse 96 11/26/2021 8:11 AM ASBESTOS CLOTH INSPECTOR Temperature - - Respiratory Rate - - Oxygen Saturation - - Inhaled Oxygen Concentration - - Weight 111.1 kg (245 lb) 11/26/2021 8:11 AM ASBESTOS CLOTH INSPECTOR Height 152.4 cm (5') 11/26/2021 8:11 AM ASBESTOS CLOTH INSPECTOR Body Mass Index 47.85 11/26/2021 8:11 AM ASBESTOS CLOTH INSPECTOR Plan of Treatment Health Maintenance Due Date [...] Screening Completed 01/09/1999 , 08/15/1998, 07/11/1998 Insurance [facility] Care Teams Retention Representative Relationship Specialty Start Date End Date Jose Roberto Thao MD PCP - General 03/03/12
--- OUTSIDE RECORDS SUMMARY | 2025-06-12 00:27 | XMS_ITS | Clinical Summary ---
Author Organization [facility] Address [address] [place] [address] Phone Care Team Providers Care Outbound Sales Agent Name Role Phone Jose Roberto Thao MD Primary Care Provider [phone] Allergies Active Allergy Reactions Criticality Noted Date [...] Comments Blood Pressure 126/82 11/12/2021 10:15 AM CREDIT COLLECTOR Pulse 80 11/12/2021 10:15 AM CREDIT COLLECTOR Temperature 36.8 C (98.2 F) 11/12/2021 10:15 AM CREDIT COLLECTOR Respiratory Rate 16 11/12/2021 10:15 AM CREDIT COLLECTOR Oxygen Saturation 92% 11/12/2021 10:30 AM CREDIT COLLECTOR Inhaled Oxygen Concentration - - Weight 113.4 kg (250 lb) 11/12/2021 5:55 AM CREDIT COLLECTOR Height 152.4 cm (5') 11/12/2021 5:55 AM CREDIT COLLECTOR Body Mass Index 48.82 11/12/2021 5:55 AM CREDIT COLLECTOR Plan of Treatment Health Maintenance Due Date [...] Insurance MEDICAID [employer] Care Teams Outbound Sales Agent Relationship Specialty Start Date End Date Jose Roberto Thao MD [address] [place] [address] PCP - General Family Medicine 05/21/18
--- OUTSIDE RECORDS SUMMARY | 2025-06-12 00:27 | XMS_ITS | Clinical Summary ---
Author Organization [facility] Address [address] [place] [phone] Phone Care Team Providers Care Home Therapy Teacher Name Role Phone Jose Roberto Thao MD [...] on file Legal Sex Female 5:47 AM ETYMOLOGY PROFESSOR Gender Identity Not on file Sexual Orientation Not on file Last Filed Vital Signs Vital Sign Reading Time Taken Comments Blood Pressure 136/84 09/08/2023 3:38 PM ETYMOLOGY PROFESSOR Pulse 81 09/08/2023 3:34 PM ETYMOLOGY PROFESSOR Temperature 36.7 C (98 F) 09/08/2023 3:34 PM ETYMOLOGY PROFESSOR Respiratory Rate 18 09/08/2023 3:34 PM ETYMOLOGY PROFESSOR Oxygen Saturation 99% 09/08/2023 3:34 PM ETYMOLOGY PROFESSOR Inhaled Oxygen Concentration - - Weight 98 kg (216 lb) 09/08/2023 3:34 PM ETYMOLOGY PROFESSOR Height 154.9 cm (5' 1) 08/04/2009 5:53 [...] INFLUENZA VACCINE (#1) 2025 Insurance Care Teams Home Therapy Teacher Relationship Specialty Start Date End Date Jose Roberto Thao MD [address] [place] [address] [facility] - General 08/04/09
--- OUTSIDE RECORDS SUMMARY | 2025-06-12 00:27 | XMS_ITS | Encounter Summary ---
Author Organization [facility] Address [address] [place] [address] Phone Care Team Providers Care Torpedo Man Name Role Phone Jose Roberto Thao MD Primary Care Provider [phone] Reason for Referral * Radiology Services (Routine) - Closed Specialty Diagnoses / Procedures Referred By Contac t Referred To Contact Radiology Diagnoses Pre-op testing Procedures XR CHEST 2 VIEWS Mulugeta Moya MD Phone: tel: fax: Referral ID Status Reason Start Date Expiration Date Visits Re quested Visits Authorized [id number] Closed 11/08/2021 1 1 MOTIVE POWER ELECTRONICS ENGINEER * Radiology Services (Routine) - Closed Specialty Diagnoses / Procedures Referred By Contac t Referred To Contact Radiology Diagnoses Pre-op testing Procedures EKG 12 LEAD Mulugeta Moya MD Phone: tel: fax: Referral ID Status Reason Start Date Expiration Date Visits Re quested Visits Authorized [id number] Closed 11/08/2021 1 1 MOTIVE POWER ELECTRONICS ENGINEER Encounter Details Date Type Department Care Team (Late st Contact Info) Description 11/08/2021 Transcribe Orders [facility] Preop/Pacu II 1 [facility] [place] [address] Mulugeta Moya MD [address] [place] [address], [address] [place] [address] Pre-op testing (Primary Dx) Social History Tobacco [...] COVID-19? No / Unsure 11/11/2021 7:50 AM AUTOMOTIVE POWER ELECTRONICS ENGINEER documented as of this encounter Plan of Treatment Not on file documented as of this encounter Results * XR CHEST 2 VIEWS (11/11/2021 8:46 AM AUTOMOTIVE POWER ELECTRONICS ENGINEER) Anatomical Region Laterality Modality Chest N/A Digital Radiogra phy 11/11/2021 8:53 AM AUTOMOTIVE POWER ELECTRONICS ENGINEER Impressions 11/11/2021 8:55 AM AUTOMOTIVE POWER ELECTRONICS ENGINEER IMPRESSION: 1. Mild patchy bibasilar airspace opacities, which is likely related to subsegmental atelectasis. No definite evidence of focal consolidation. Narrative 11/11/2021 8:55 AM AUTOMOTIVE POWER ELECTRONICS ENGINEER EXAM DESCRIPTION: XR CHEST 2 VIEWS REASON [...] Mathieu Kahn D.O. PS: PS Report ID: [id number] Reading Location: [id number] Procedure Note Mathieu Kahn DO - 11/11/2021 [...] Mathieu Kahn D.O. PS: PS Report ID: [id number] Reading Location: [id number] IMPRESSION: 1. Mild patchy bibasilar airspace opacities, which is likely related to subsegmental atelectasis. No definite evidence of focal consolidation. Mulugeta Moya MD IMG DIAGNOSTIC ORDERABL ES Final Result * EKG 12 LEAD (11/11/2021 8:17 AM AUTOMOTIVE POWER ELECTRONICS ENGINEER) Ventricular Rate BPM EXTERNAL EKG Atrial Rate BPM EXTERNAL EKG P-R Interval 138 ms EXTERNAL EKG QRS Duration 78 ms EXTERNAL EKG Q-T Duration 382 ms EXTERNAL EKG QTC CALCULATION 441 ms EXTERNAL EKG P Calder 50 degrees EXTERNAL EKG R Calder 67 degrees EXTERNAL EKG T Calder 32 degrees EXTERNAL EKG 11/11/2021 8:17 AM AUTOMOTIVE POWER ELECTRONICS ENGINEER Impressions EXTERNAL EKG - 11/12/2021 9:35 AM AUTOMOTIVE POWER ELECTRONICS ENGINEER Sinus rhythm Low QRS voltages in precordial leads Comparison Summary: No serial comparison made Summary: Borderline ECG Confirmed by Dereje Og [id number] on 11/12/2021 9:35:35 AM Narrative Procedure Note Janet Reyez MD - 11/12/2021 IMPRESSION: Sinus rhythm Low QRS voltages in precordial leads Comparison Summary: No serial comparison made Summary: Borderline ECG Confirmed by Dereje Og [id number] on 11/12/2021 9:35:35 AM us Mulugeta Moya MD IMG ECG ORDERABLES [facility] [employer] Result EXTERNAL EKG * SARS-COV-2 BY MOLECULAR (11/11/2021 8:09 AM AUTOMOTIVE POWER ELECTRONICS ENGINEER) SARSCOV2 NOT DETECTED (Referen ce Range for this test is Not Detected ) [facility] THERMOFISHER FAST DX 11/12/2021 7:47 AM AUTOMOTIVE POWER ELECTRONICS ENGINEER [facility] Comment:This test was perfor med by a RT-PCR method. Other NASOPHARYNGEAL STRUCTURE / Unknown Non-Phlebotomy Collection / Unknown 11/11/2021 8:09 AM AUTOMOTIVE POWER ELECTRONICS ENGINEER 11/11/2021 8:11 AM AUTOMOTIVE POWER ELECTRONICS ENGINEER Narrative [facility] - 11/12/2021 7:47 AM AUTOMOTIVE POWER ELECTRONICS ENGINEER Authorized Fact Sheets about this test for providers and patients are available at: https://www.fda.gov/medical-devices/mvqlregph-qkjmfwcowi-csaonco-devices/emergen -us e-authorizations us Cristino Ha MD MICROBIOLOGY - GENERAL ORDERA BLES Final Result [facility] [address] [place] [address], [place] * HEMOGLOBIN & HEMATOCRIT (H&H) (11/11/2021 8:09 AM AUTOMOTIVE POWER ELECTRONICS ENGINEER) HEMOGLOBIN (HGB) 12.5 12.0 - 15.8 g/dL 11/11/2021 8:28 AM AUTOMOTIVE POWER ELECTRONICS ENGINEER [facility] HEMATOCRIT (HCT) 39.6 36.0 - 47.0 % 11/11/2021 8:28 AM AUTOMOTIVE POWER ELECTRONICS ENGINEER [facility] Blood Venipuncture / Unknown 11/11/2021 8:09 AM AUTOMOTIVE POWER ELECTRONICS ENGINEER 11/11/2021 8:13 AM AUTOMOTIVE POWER ELECTRONICS ENGINEER us Cristino Ha MD HEMATOLOGY ORDERABLES Final R esult [facility] [address] [place] [address] documented in this encounter Visit Diagnoses Diagnosis Pre-op testing- Primary Preoperative examination, unspecified Pre-op testing Preoperative examination, unspecified Pre-op testing Preoperative examination, unspecified documented in this encounter Care Teams Torpedo Man Relationship Specialty Start Date End Date Jose Roberto Thao MD [address] [place] [address] PCP - General Family Medicine 05/21/18 documented as of this encounter
[2025-06-12] MEDS: ONDANSETRON INJ 4 MG/2 ML VIAL IV PUSH (00:30)
[2025-06-12 00:31] VITALS: BP 161/83; PULSE 95; RESP 22; O2SAT 97
--- NOTE | 2025-06-12 00:36 | PC.NURSE ---
Pt taken to scan. Will give pain medication when pt returns.
[2025-06-12] MEDS: HYDROmorphone HCL INJ (*CRX) 2 MG/ML VIAL 0.5 MG IV PUSH (00:49)
[2025-06-12] MEDS: KETOROLAC 15 MG/ML VIAL (*BKC) IV PUSH (02:26)
[2025-06-12 02:47] VITALS: BP 119/64; PULSE 86; RESP 20; TEMP 36.8; O2SAT 99
== END 2025-06-12 02:33 | disposition home or self-care (01) ==
PROVIDERS: Student in an Organized Health Care Education/Training Program; Emergency Provider Physician Assistant; PCP Family Medicine
DX: K57.92 Diverticulitis of intestine, part unspecified, without perforation or abscess without bleeding (principal); E66.01 Morbid (severe) obesity due to excess calories; Z68.41 Body mass index [BMI] 40.0-44.9, adult; F17.210 Nicotine dependence, cigarettes, uncomplicated
CPT/HCPCS: 36415; 74177; 80053; 81001; 81025; 83690; 85025; 87040; 96374; 96375; 99284; J1171; J1885; J2405; Q9967